=== PATIENT | male | born 1955 | race Caucasian/White ===

== ENCOUNTER 2020-05-25 10:03 | Outpatient (REF) | payer MEDICARE, SELFPAY ==
--- NOTE | 2020-05-25 10:10 | XR_ITS ---
EXAMINATION: XR HIP, RIGHT CLINICAL INFORMATION: Right hip pain COMPARISON: Previous x-ray October 2017 TECHNIQUE: Two views of the right hip and one view of the pelvis. FINDINGS: There is a severe arthritis of the right hip joint with joint space narrowing and osteophyte formation. No fracture or dislocation is seen. There is mild arthritis at the left hip joint. Bones of the pelvis are unremarkable. There are bilateral pelvic calcifications that are stable and probably represent calcified phleboliths. Soft tissues are otherwise unremarkable. There are degenerative changes of the visualized lower lumbar spine. XR/XR hip RT w PEL1V IMPRESSION: Severe right hip arthritis.
== END 2020-05-25 10:04 | disposition home or self-care (01) ==
LOC: HO.HOSX 10:03
PROVIDERS: Visit Provider Orthopaedic Surgery
DX: M16.11 Unilateral primary osteoarthritis, right hip (principal)
CPT/HCPCS: 73502; 99202

== ENCOUNTER 2020-06-06 08:23 | Outpatient (REF) | payer MEDICARE, SELFPAY ==
[2020-06-06 09:43] LABS: MANUAL DIFF FLAG NO
[2020-06-06 09:55] LABS: Basophils Percent Auto 0.7 % (0-2); Eosinophils Absolute Auto 0.2 X10*3/uL (0.0-0.4); Eosinophils Percent Auto 3.9 % (0-4); Imm Gran Abs Auto 0.01 X10*3/uL (0.00-0.03); Imm Gran Pct Auto 0.2 % (0.0-0.4); Lymphocytes Absolute Auto 1.5 X10*3/uL (1.2-4.9); Lymphocytes Percent Auto 34.1 % (20-40); Mean Corpuscular HGB Conc 32.4 g/dl (31.0-36.0); Mean Corpuscular Hemoglobin 30.4 pg (27.0-33.0); Mean Corpuscular Volume 93.7 fL (80-98); Mean Platelet Volume 9.6 fL (9.4-12.4); Monocytes Absolute Auto 0.3 X10*3/uL (0.1-1.2); Monocytes Percent Auto 6.1 % (2-11); Neutrophils Absolute Auto 2.4 X10*3/uL (2.0-8.3); Platelet Count 285 X10*3/uL (160-400); Red Blood Count 3.95 X10*6/uL (4.60-5.80); Red Cell Distribution Width 12.8 % (11.0-16.0); White Blood Count 4.4 X10*3/uL (4.8-10.8)
[2020-06-06 10:21] LABS: Alanine Aminotransferase 12 U/L (0-40); Albumin Level 4.3 g/dL (3.5-5.0); Alkaline Phosphatase 38 U/L (39-117); Anion Gap 13 (12-20); Aspartate Amino Transferase 13 U/L (5-37); Bilirubin Total 0.5 mg/dL (0.0-1.0); Blood Urea Nitrogen 20 mg/dL (9-16); Calcium 9.1 mg/dL (8.4-10.2); Carbon Dioxide 28 mmol/L (22-29); Chloride 104 mmol/L (96-108); Cholesterol 191 mg/dL; Estimated Glomerular Filt Rate > 60; Glucose Fasting 95 mg/dL (60-99); HDL Cholesterol 43 mg/dL; LDL Cholesterol Calculated 113 mg/dl; Potassium 4.5 mmol/l (3.3-5.1); Sodium 140 mmol/L (135-145); Total Protein 6.9 g/dL (6.5-8.0); Triglycerides 179 mg/dL
== END 2020-06-06 08:24 | disposition home or self-care (01) ==
LOC: HO.LAB 08:23
PROVIDERS: PCP Physician Assistant; Visit Provider Physician Assistant
DX: E78.00 Pure hypercholesterolemia, unspecified (principal); N40.0 Benign prostatic hyperplasia without lower urinary tract symptoms; I10 Essential (primary) hypertension
CPT/HCPCS: 36415; 80053; 80061; 84443; 85025

== ENCOUNTER → 2020-06-21 11:11 | Outpatient (BNVA) | payer MEDICARE, SELFPAY | PROVIDERS: PCP Physician Assistant; Visit Provider Orthopaedic Surgery | DX: Z76.89 Persons encountering health services in other specified circumstances (principal) ==

== ENCOUNTER → 2020-07-13 13:24 | Outpatient (BNVA) | payer MEDICARE, SELFPAY | PROVIDERS: PCP Physician Assistant; Visit Provider Physician Assistant | DX: M16.11 Unilateral primary osteoarthritis, right hip (principal) | CPT/HCPCS: 99212 ==

== ENCOUNTER 2020-08-01 07:54 | Inpatient (IN) | payer MEDICARE, SELFPAY ==
[2020-06-06 11:36] VITALS: BMI 30.8
--- NOTE | 2020-07-13 10:43 | HO.ANESPROP2 ---
HPI - Anesthesia Eval Consult details Narrative: 65yo M for R FELY PCP Cleared Rescheduled d/t covid [facility] Past Medical History Medical History History of anxiety History of cataract History of depression HLD (hyperlipidemia) HTN (hypertension) Family History Family History Father Renal cancer Mother Alzheimers disease Family history of problems with anesthesia: No Surgical History Surgical History History of cataract surgery History of colonoscopy History of Problems with Anesthesia: No (Never rec'd GA) Social History Social History (Updated 07/13/20 @ 13:38 by LIZZ Gusman) Alcohol intake: never Smoking Status: Former smoker Second Hand Smoke Exposure: No Current occupational status: employed 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 No CP/SOB at rest. Meds Allergies Allergy/AdvReac Type Severity Reaction Status Date / Time No Known Allergies Allergy Verified 07/13/20 13:32 Home Medications Medication Instructions Recorded Confirmed Type multivitamin 1 tab PO DAILY 07/13/20 07/13/20 History Exam Exam Date and Time: July 13, 2020 1043 Height,Weight and Vital Signs: Height 5 ft 9 in Weight 94.801 kg Pertinent Lab Results Pertinent Lab Results: Laboratory Tests 07/13/20 07/13/20 13:13 13:13 WBC 4.8 Hgb 12.4 L Hct 36.9 L Plt Count 300 Sodium 137 Potassium 4.5 Chloride 102 Carbon Dioxide 24 BUN 34 H D Creatinine 0.89 Laboratory Tests 07/13/20 13:13 Blood Type AB Positive Antibody Screen NEGATIVE Narrative Narrative: EKG 07/13/20 Normal sinus rhythm Nonspecific T wave abnormality Abnormal ECG When compared with ECG of 20-JUN-2009 07:43, No significant change was found Airway Mallampati Class: I TM Dist: >3cm Neck ROM: Full Loose/Missing/Broken Teeth: Yes (Molars pulled, ?1xcrown in molar) Heart: RRR Lungs: CTAB Assessment and Plan Assessment Anesthesia Assessment: Anesthesia Plan Discussed and PAT Visit
[2020-07-13 12:05] VITALS: BP 122/68; PULSE 78; RESP 20; O2SAT 95
[2020-07-13 12:06] VITALS: BMI 29.5
--- NOTE | 2020-07-13 12:57 | ECG_ITS ---
Test Reason : ANESTH HIP SURGERY Blood Pressure : / mmHG Vent. Rate : 066 BPM Atrial Rate : 066 BPM P-R Int : 166 ms QRS Dur : 074 ms QT Int : 386 ms P-R-T Axes : 030 -05 057 degrees QTc Int : 404 ms Normal sinus rhythm Nonspecific T wave abnormality Abnormal ECG When compared with ECG of 20-JUN-2009 07:43, No significant change was found Referred By: Candace Yu Electronically Signed By:VALENTIN CARVAJAL MD
[2020-07-13 13:50] LABS: MANUAL DIFF FLAG NO
[2020-07-13 13:58] LABS: Basophils Percent Auto 0.4 % (0-2); Eosinophils Absolute Auto 0.2 X10*3/uL (0.0-0.4); Eosinophils Percent Auto 4.3 % (0-4); Hematocrit 36.9 % (42-52); Hemoglobin 12.4 g/dl (14.0-18.0); Imm Gran Abs Auto 0.01 X10*3/uL (0.00-0.03); Imm Gran Pct Auto 0.2 % (0.0-0.4); Lymphocytes Absolute Auto 1.7 X10*3/uL (1.2-4.9); Lymphocytes Percent Auto 34.4 % (20-40); Mean Corpuscular HGB Conc 33.6 g/dl (31.0-36.0); Mean Corpuscular Hemoglobin 30.5 pg (27.0-33.0); Mean Corpuscular Volume 90.7 fL (80-98); Mean Platelet Volume 9.5 fL (9.4-12.4); Monocytes Absolute Auto 0.3 X10*3/uL (0.1-1.2); Monocytes Percent Auto 6.2 % (2-11); Neutrophils Absolute Auto 2.6 X10*3/uL (2.0-8.3); Neutrophils Percent Auto 54.5 % (45-73); Platelet Count 300 X10*3/uL (160-400); Red Blood Count 4.07 X10*6/uL (4.60-5.80); Red Cell Distribution Width 13.1 % (11.0-16.0); White Blood Count 4.8 X10*3/uL (4.8-10.8)
[2020-07-13 14:18] LABS: Estimated Average Glucose 105 mg/dL; Hemoglobin A1c % 5.3 %
[2020-07-13 14:44] LABS: Alanine Aminotransferase 12 U/L (0-40); Albumin Level 4.7 g/dL (3.5-5.0); Alkaline Phosphatase 42 U/L (39-117); Anion Gap 16 (12-20); Aspartate Amino Transferase 15 U/L (5-37); Bilirubin Total 0.5 mg/dL (0.0-1.0); Blood Urea Nitrogen 34 mg/dL (9-16); Calcium 9.5 mg/dL (8.4-10.2); Carbon Dioxide 24 mmol/L (22-29); Chloride 102 mmol/L (96-108); Cholesterol 210 mg/dL; Creatinine Clr Calc Pharmacy 92.1; Estimated Glomerular Filt Rate > 60; Glucose Fasting 96 mg/dL (60-99); HDL Cholesterol 49 mg/dL; LDL Cholesterol Calculated 135 mg/dl; Potassium 4.5 mmol/l (3.3-5.1); Sodium 137 mmol/L (135-145); Total Protein 7.3 g/dL (6.5-8.0); Triglycerides 132 mg/dL
[2020-07-13 14:52] LABS: TSH reflex Free T4 1.69 mIU/mL (0.32-4.0)
[2020-07-13 14:59] LABS: Microalbumin Urine < 5.0 mg/L
[2020-07-13 16:07] LABS: MRSA Nasal PCR NEGATIVE (Negative); SA Nasal PCR NEGATIVE (Negative)
--- NOTE | 2020-07-29 09:03 | P.CONAN_ITS ---
Documented by User: Marycarmen Jasonney 07/29/20 09:09 HPI - Anesthesia Eval Consult details Narrative: 65yo M for R FELY PCP Cleared Rescheduled d/t covid policy [facility] Past Medical History Medical History History of anxiety History of cataract History of depression HLD (hyperlipidemia) HTN (hypertension) Family History Family History Father Renal cancer Mother Alzheimers disease Surgical History Surgical History History of cataract surgery History of colonoscopy Social History Social History Are you a primary healthcare insurance sales agent to a significant other at home: No Do you presently have visiting nurse or other home services: No Alcohol intake: never Smoking Status: Former smoker Smoking Quit Date: 16 yrs ago Second Hand Smoke Exposure: No Use of substances other than those prescribed or required for medical reasons: No Have you been hit, kicked, punched, or otherwise hurt by someone within the past year? 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4 L Hct 36.9 L MCV 90.7 MCH 30.5 MCHC 33.6 RDW 13.1 Plt Count 300 MPV 9.5 Immature Gran % (Auto) 0.2 Neut % (Auto) 54.5 Lymph % (Auto) 34.4 Traverse % (Auto) 6.2 Eos % (Auto) 4.3 H Baso % (Auto) 0.4 Lymph # (Auto) 1.7 Traverse # (Auto) 0.3 Eos # (Auto) 0.2 Baso # (Auto) 0.0 Abs Immat Gran (auto) 0.01 Absolute Neuts (auto) 2.6 Absolute Nucleated RBC 0.000 Nucleated RBC % (auto) 0.0 Sodium Potassium Chloride Carbon Dioxide Anion Gap BUN Creatinine Estim Creat Clear Calc Estimated GFR Fasting Glucose Estimat Average Glucose Hemoglobin A1c % Calcium Total Bilirubin AST ALT Alkaline Phosphatase Total Protein Albumin Triglycerides Cholesterol LDL Cholesterol, Calc HDL Cholesterol TSH Urine Creatinine Urine Microalbumin Microalb/Creat Ratio Nasal Screen MRSA (PCR) NEGATIVE Nasal S. aureus Screen NEGATIVE Nasal MRSA/S.aureus Interp SEE NOTE Blood Type AB Positive Antibody Screen NEGATIVE 07/13/20 07/13/20 07/13/20 13:13 13:13 13:13 WBC RBC Hgb Hct MCV MCH MCHC RDW Plt Count MPV Immature Gran % (Auto) Neut % (Auto) Lymph % (Auto) Traverse % (Auto) Eos % (Auto) Baso % (Auto) Lymph # (Auto) Traverse # (Auto) Eos # (Auto) Baso # (Auto) Abs Immat Gran (auto) Absolute Neuts (auto) Absolute Nucleated RBC Nucleated RBC % (auto) Sodium 137 Potassium 4.5 Chloride 102 Carbon Dioxide 24 Anion Gap 16 BUN 34 H D Creatinine 0.89 Estim Creat Clear Calc 92.1 Estimated GFR > 60 Fasting Glucose 96 Estimat Average Glucose 105 Hemoglobin A1c % 5.3 Calcium 9.5 Total Bilirubin 0.5 AST 15 ALT 12 Alkaline Phosphatase 42 Total Protein 7.3 Albumin 4.7 Triglycerides 132 Cholesterol 210 LDL Cholesterol, Calc 135 HDL Cholesterol 49 TSH 1.69 Urine Creatinine 76.50 Urine Microalbumin < 5.0 Microalb/Creat Ratio TNP Nasal Screen MRSA (PCR) Nasal S. aureus Screen Nasal MRSA/S.aureus Interp Blood Type Antibody Screen Narrative Narrative: EKG 07/13/20 Normal sinus rhythm Nonspecific T wave abnormality Abnormal ECG When compared with ECG of 20-JUN-2009 07:43, No significant change was found Airway Mallampati Class: I TM Dist: >3cm Neck ROM: Full Loose/Missing/Broken Teeth: Yes (Molars pulled, ?1xcrown in molar) Heart: RRR Lungs: CTAB Assessment and Plan Assessment Anesthesia Assessment: Anesthesia Plan Discussed and PAT Visit (PAT visit 07/13/20, rescheduled d/t covid policy) Documented by User: Jordy Johnson MD 08/01/20 09:43 [facility] Past Medical History Medical History History of anxiety History of cataract History of depression HLD (hyperlipidemia) HTN (hypertension) Family History Family History Father Renal cancer Mother Alzheimers disease Surgical History Surgical History History of cataract surgery History of colonoscopy Social History Social History Are you a primary healthcare insurance sales agent to a significant other at home: No Do you presently have visiting nurse or other home services: No Alcohol intake: never Smoking Status: Former smoker Smoking Quit Date: 16 yrs ago Second Hand Smoke Exposure: No Use of substances other than those prescribed or required for medical reasons: No Have you been hit, kicked, punched, or otherwise hurt by someone within the past year? 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 Meds Allergies Allergy/AdvReac Type Severity Reaction Status Date / Time No Known Allergies Allergy Verified 07/13/20 13:32 Home Medications Medication Instructions Recorded Confirmed Type multivitamin 1 tab PO DAILY 07/13/20 07/13/20 History Assessment and Plan Assessment Anesthesia Assessment: Anesthesia Plan Discussed and Chart Reviewed Final Anesthetic Review NPO: Yes ASA Class: II Final Preanesthetic Review: No Changes in Pt Med Stat, Meds/Allgs Chart Reviewed, Consent Obtained/Reviewed and Anes Risks/Benef Reviewed Patient Risk: Intermediate Procedure Risk: Intermediate Anesthetic Plan Anesthetic Plan: GA and Regional Block Disposition: Standard PACU
[2020-08-01] VITALS (10 sets, daily range): BP systolic 104–131; BP diastolic 55–82; PULSE 77–106; RESP 16–20; TEMP 36.1–36.9; O2SAT 92–96
--- NOTE | 2020-08-01 07:03 | MHC.SHP ---
Pre-Procedural Eval Section A The patient is an INPATIENT: No Changes since office visit: No Cold of Flu in the past 2 weeks, No New Medical Problems, No Changes in Medication and No Patient answered all questions The History & Physical has been completed within 30 days and I have reviewed it.: Yes Section B Chief Complaint: right hip osteoarthritis Allergies: Allergies Allergy/AdvReac Type Severity Reaction Status Date / Time No Known Allergies Allergy Verified 07/13/20 13:32 Plan I have reviewed the history and physical and performed a pertinent physical examination on my patient. No changes have occurred unless specified.
[2020-08-01 08:21] LABS: COVID-19 Test Negative (Negative); IDNOW Serial# 9DD0AD1C
[2020-08-01] MEDS: oxyCODONE HCl ER 10 MG TAB.ER.12H PO (08:58)
[2020-08-01] MEDS: Gabapentin 600 MG TABLET PO (08:58)
[2020-08-01] MEDS: Lactated Ringers 1,000 ML 100 ML IVCONT ×2 (09:11→16:57)
--- NOTE | 2020-08-01 11:52 | P.PCNOP_ITS ---
Brief Operative Note Date of procedure: 08/01/20 Pre-op diagnosis: OA RIGHT HIP Post-op diagnosis: same Procedure: RIGHT FELY Anesthesia: spinal Surgeon: Candace Yu Sales And Business Development Manager: Ruma Walls Estimated blood loss (mL): 100 Pathology: none sent Condition: stable Disposition: PACU
--- NOTE | 2020-08-01 12:58 | OP_ITS ---
SURGEON: Candace Yu MD PREOPERATIVE DIAGNOSIS: Osteoarthritis, right hip. POSTOPERATIVE DIAGNOSIS: Osteoarthritis, right hip. PROCEDURE PERFORMED: Right total hip arthroplasty - Accolade II right size 5 x 127 femur, 36 mm standard BIOLOX head, 54 mm Tritanium acetabulum, 36 x 0 degree acetabular liner. ESTIMATED BLOOD LOSS: COMPLICATIONS: ANESTHESIA: ASSISTANTS: TAMEKA Driscoll. SPECIMENS: CLINICAL NOTE: This gentleman has had ongoing problem with osteoarthritis involving his right hip. He had failed nonoperative management, therefore after explaining the risks, benefits, and alternatives, and answering all his questions, it was mutually agreed upon to carry out the following procedure. DESCRIPTION OF PROCEDURE: Under a spinal anesthetic, the patient was placed in the left lateral decubitus position with the right hip up. The right hip was prepped and draped in standard fashion with the right leg free. Surgical time-out was then performed. The patient was identified, procedure confirmed, site confirmed. Medical analogy and history reviewed. Preoperative antibiotics were given. Standard DVT prophylaxis was in place. All other items were discussed and agreed upon. Tranexamic acid was given as well. Standard anterolateral approach to the hip was carried out, taken down through subcutaneous tissues. Hemostasis was achieved along the way using electrocautery, brought us down to the level of the fascia castillo, which was divided along the length of the incision. The abductor musculature was then identified, the anterior two-thirds were elevated through tendon off the trochanter along the capsule down to the level of the acetabulum. Capsulectomy was then performed. The hip was not easily dislocated, therefore, it was resected in situ according to preoperative templating. The head was then removed, and we turned our attention to the acetabulum. There were osteophytes that were present and these were removed off the superior aspect. The remainder of the labrum and soft tissues were removed. The acetabular fossa was identified. The hip was then sequentially reamed from 52 to 54 mm. At that point, trial acetabulum was put into place that showed the alignment and fit. Therefore the 54 mm Tritanium acetabulum was selected and brought up the table. The wound was thoroughly irrigated. The acetabulum was inserted until it was aligned and with excellent purchase in the appropriate position. Following this, the trial 0 degree liner for 36 mm head was placed and we turned our attention to the femur. Box osteotome was used to lateralize the canal. T-reamer was used to sound the canal. The canal was subsequently broached from 0-5. At 5, there was good fit and fill and rotational control. A trial reduction was performed with the 36 mm standard head and a 127 degree collar. This demonstrated excellent alignment, full range of motion, stability, and therefore the Accolade II 5 x 127 femur with 36 standard BIOLOX head and the 36 x 0 degree acetabular liner were selected and brought up the table. All the trial components were removed after the hip was dislocated. The acetabulum was thoroughly irrigated. Permanent liner put into place. The femur was irrigated. The permanent component was tapped into place. The Perales taper was cleaned and dried. The head placed. The hip was relocated for final time, it again demonstrated excellent alignment, full range of motion, leg lengths, and stability, and therefore, proceeded to closure. Wound was thoroughly irrigated. Abductor musculature closed with #2 Dexon. Fascia castillo closed with #2 Quill suture. The skin was approximated using interrupted 2-0 Dexon. Skin was closed with jomar. Sterile dressing was then applied. The patient was then transferred supine to the room bed, then taken to recovery room in good condition. Intraoperatively, there was approximately 100 mL blood loss. No transfusions. Second unit of tranexamic acid was given at the time of closure. There were no complications. MD SYD Avila/MAURICE / [id number]
--- NOTE | 2020-08-01 15:23 | PM.IMCN ---
History of Present Illness Data of Consult Service Date: 08/01/20 Requesting physician: Candace Yu Primary Care Provider: Unknown Physician HPI Reason for consult: medical management 65-year-old man admitted by Orthopedic surgery, status post right total hip arthroplasty. Surgery was unremarkable. Patient has a minimal amount of pain at this time. He has been able to eat and drink without any nausea or vomiting. Stable vital signs. Review of Systems Review of Systems: Denies any recent fever chills or decrease in appetite respiratory denies any shortness of breath coverage production cardiovascular is adjustment of any PND or edema gastrointestinal denies any dysphagia abdominal pain nausea vomiting or diarrhea genitourinary denies any dysuria frequency or hematuria musculoskeletal See HPI neuropsych denies any weakness or seizures all other systems reviewed are negative [facility] Medical History History of anxiety History of cataract History of depression HLD (hyperlipidemia) HTN (hypertension) Family History Father Renal cancer Mother Alzheimers disease Surgical History History of cataract surgery History of colonoscopy Social History Are you a primary career representative to a significant other at home: No Do you presently have visiting nurse or other home services: No Alcohol intake: never Smoking Status: Former smoker Smoking Quit Date: 16 yrs ago Second Hand Smoke Exposure: No Use of substances other than those prescribed or required for medical reasons: No Have you been hit, kicked, punched, or otherwise hurt by someone within the past year? 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 Meds Allergies Allergy/AdvReac Type Severity Reaction Status Date / Time No Known Allergies Allergy Verified 07/13/20 13:32 Home Medications Medication Instructions Recorded Confirmed Type multivitamin 1 tab PO DAILY 07/13/20 07/13/20 History Physical Exam Vital Signs and Narrative: Vital Signs: Last Vital Signs Temp 97 F 08/01/20 15:11 Pulse 91 08/01/20 15:11 Resp 20 08/01/20 15:11 BP 125/63 08/01/20 15:11 Pulse Ox 94 08/01/20 15:11 Body Mass Index 29.5 Appearing in no acute distress head is normocephalic atraumatic eyes pupils are PERRLA sclera is anicteric mouth throat mucous membranes are intact and moist neck is supple no lymphadenopathy, no JVD noted lung sounds are clear to auscultation heart regular rate rhythm, clear S1, S2 positive bowel sounds, abdomen is soft, nontender neuro patient is alert x3, no focal deficits MSK Righ hip dressing dry and intact Results Labs CBC and Chem 7: 07/13/20 13:13 07/13/20 13:13 Labs: Laboratory Results - last 24 hr 08/01/20 08/01/20 08:00 08:23 COVID-19 ([place]) Negative COVID-19 Clin Com See Note Blood Type AB Positive Antibody Screen NEGATIVE Assessment and Plan (1) Primary localized osteoarthritis of right hip: Status: Acute 65 year old man admitted by Orthopedic surgery and is status post right total hip arthroplasty. Right total hip arthroplasty. Management as per surgical team. Pain management. Hypertension. Stable blood pressure. Continue lisinopril. Depression. Continue paroxetine. Hyperlipidemia. Continue statin. DVT prophylaxis with full-dose aspirin. Case discussed with Dr. Fito Cancino code
[2020-08-01] MEDS: ceFAZolin Sodium/Dextrose,Iso 2 GM/50 ML PIGGYBACK IV (16:58)
[2020-08-01] MEDS: 0.9 % Sodium Chloride Flush 3 ML SYRINGE IVFLUSH (16:59)
--- NOTE | 2020-08-01 17:23 | PM.EVENT ---
Event Note Date of Service: 08/02/20 Event Note: addendum to consultation by FLASH WELDING MACHINE OPERATOR Ilsa Doyle I interviewed and examined the patient. I discussed their presentation and management with the mid-level provider. I reviewed the consultation and agree with the documentation, with the following additions and corrections: 65yo M POD #0 R FELY for OA, medical consultation requested for mgmt of comorbid conditions which are HTN, depression, and HLD Pt with appropriate postop pain; no cardiac or pulmonary complaints. In no acute distress with clear lungs and regular rate and rhythm. Plan: VTE ppx as per Ortho team, continue lisinopril for HTN, paroxetine for depression, and statin for dyslipidemia
[2020-08-01] MEDS: Acetaminophen 325 MG TABLET 650 MG PO (18:36)
[2020-08-01] MEDS: Ketorolac Tromethamine 15 MG/ML VIAL IVPUSH (20:23)
[2020-08-02] VITALS (8 sets, daily range): BP systolic 93–122; BP diastolic 44–77; PULSE 73–99; RESP 18–20; TEMP 36.7–37.3; O2SAT 93–96
[2020-08-02] MEDS: Ketorolac Tromethamine 15 MG/ML VIAL IVPUSH ×4 (01:57→21:12)
[2020-08-02] MEDS: Acetaminophen 325 MG TABLET 650 MG PO ×4 (01:58→19:06)
[2020-08-02] MEDS: Lactated Ringers 1,000 ML 100 ML IVCONT (02:02)
[2020-08-02 06:28] LABS: Hematocrit 27.7 % (42-52); Hemoglobin 9.4 g/dl (14.0-18.0)
--- NOTE | 2020-08-02 07:00 | XR_ITS ---
EXAMINATION: XR HIP, RIGHT CLINICAL INFORMATION: Postop COMPARISON: Right hip x-rays 05/25/2020 TECHNIQUE: Two views of the right hip. FINDINGS: Patient is status post right total hip arthroplasty. Components are in expected orientation. There is no periprosthetic fracture. Expected subcutaneous emphysema. Skin jomar. Mild degenerative changes of the left hip. Vascular calcifications of the pelvis. XR/XR hip RT w PEL1V IMPRESSION: Expected post operative appearance of the right hip.
--- NOTE | 2020-08-02 07:56 | PM.PNORT ---
Subjective Subjective Date of Service: 08/02/20 Principal diagnosis: RT FELY Interval history: POD 1 s/p RT FELY No overnight events, has not been out of bed, has some pain in the thigh. Tolerating pain well. Denies concerns. Physical Exam Vital Signs: Vital Signs: Last Vital Signs Temp 98.0 F 08/02/20 03:00 Pulse 87 08/02/20 03:00 Resp 20 08/02/20 03:00 BP 122/71 08/02/20 03:00 Pulse Ox 96 08/02/20 03:00 Body Mass Index 29.5 Const: General: cooperative, healthy appearing and no acute distress Resp: Effort & Inspection: normal respiratory effort and able to speak in complete sentences Cardio: Rate: regular rate Peripheral pulses: Peripheral pulses 2+ throughout GI: Palpation (GI): Soft to palpation Skin: General skin exam: no rashes or lesions noted Extrem: Other: Right hip incision clean, dry and intact. no erythema, mild edema, sensation intact Progress Note: A&P Assessment and plan (1) History of total right hip replacement: Status: Acute Assessment and Plan: Continue pain mgmnt Begin asa for dvt ppx begin PT for RT FELY Dispo planning-Pending PT eval, pain mgmnt Fall Risk Details Current Medications: Current Medications Generic Name Dose Route Start Last Admin Trade Name Freq PRN Reason Stop Dose Admin Acetaminophen 650 mg 08/01/20 13:17 08/02/20 07:40 Acetaminophen 325 Mg Tablet PO 650 mg Q6H MARK Administration Aspirin 325 mg 08/02/20 22:00 Aspirin 325 Mg Tablet PO BID [facility] Fluoxetine HCl 40 mg 08/02/20 09:00 Fluoxetine Hcl 20 Mg Capsule PO DAILY [facility] Fluticasone Propionate 1 spray 08/02/20 09:00 Fluticasone Propionate Nasal 16 Gm [place]ell NOSTRIL-B DAILY MARK Lactated Ringer's 1,000 mls @ 100 mls/hr 08/01/20 08:00 08/02/20 02:02 Lr IVCONT 100 mls/hr .Q10H MARK Administration Ketorolac Tromethamine 15 mg 08/01/20 14:00 08/02/20 07:41 Ketorolac Tromethamine 15 Mg/Ml Vial IVPUSH 15 mg Q6H MARK Administration Lisinopril 20 mg 08/02/20 09:00 Lisinopril 20 Mg Tablet PO DAILY [facility] Protocol Morphine Sulfate 2 mg 08/01/20 13:17 Morphine Sulfate 2 Mg/Ml Cartridge IVPUSH Q2H PRN Pain, Severe (Pain Scale 7-10) Multivitamins/Vitamin C 1 tab 08/02/20 09:00 Multivitamin Tablet PO DAILY [facility] Naloxone HCl 0.2 mg 08/01/20 13:17 Naloxone Hcl 0.4 Mg/Ml Vial IVPUSH Q2M PRN Excessive sedation or RR < 8 Ondansetron HCl 4 mg 08/01/20 13:17 Ondansetron Hcl 4 Mg/2 Ml Vial IVPUSH Q8H PRN Nausea and Vomiting Oxycodone HCl 10 mg 08/01/20 13:17 08/02/20 07:45 Oxycodone Hcl Immed Release 5 Mg Tablet PO Not Given Q6H [facility] Pravastatin Sodium 40 mg 08/02/20 09:00 Pravastatin Sodium 40 Mg Tablet PO DAILY [facility] Sodium Chloride 3 ml 08/01/20 16:00 08/02/20 07:45 0.9 % Sodium Chloride Flush 3 Ml Syringe IVFLUSH Not Given QSHIFT [facility] Time Spent With Patient Time: Total time spent is greater than 50% in coordination of care (as documented) at patient's floor/unit and/or counseling patient: Time with patient: less than 15 minutes
[2020-08-02] MEDS: Pravastatin Sodium 40 MG TABLET PO (08:51)
[2020-08-02] MEDS: Multivitamin TABLET 1 TAB PO (08:51)
[2020-08-02] MEDS: FLUoxetine HCl 20 MG CAPSULE 40 MG PO (08:52)
--- NOTE | 2020-08-02 10:19 | MHC.CM.PN ---
pt lives alone in home, he has moved to the first floor of the house. pt at baseline is independent. he has a walker , cane at home already. he will have a family member or friend provide transport. pt requested [facility] to provide nsg and home PT , this ref. has been made. dc plan is home c [facility] for nsg and home PT . cm to cont. to follow.
--- NOTE | 2020-08-02 10:29 | HO.POSTANES ---
Post Anesthesia Evaluation Post Anesthesia Evaluation Vital Signs: Vital Signs Temp Pulse Resp BP Pulse Ox 08/02/20 08:08 87 122/71 96 08/02/20 07:00 98.4 F 93 18 100/53 L 93 08/02/20 03:00 98.0 F 87 20 122/71 96 08/01/20 23:00 97.7 F 78 20 125/70 95 Anesthesia: General Mental Status: Awake Pain Control: Satisfactory Nausea/Vomiting: None Hydration: Adequate Anesthesia-Related Issues: No Anes. Related Issues
--- NOTE | 2020-08-02 10:34 | P.PNIM_ITS ---
Subjective Subjective Date of Service: 08/02/20 Interval History: R hip pain no chest pain no dyspnea no fever Physical Exam Vital Signs: Vital Signs: Last Vital Signs Temp 98.4 F 08/02/20 07:00 Pulse 87 08/02/20 08:08 Resp 18 08/02/20 07:00 BP 122/71 08/02/20 08:08 Pulse Ox 96 08/02/20 08:08 Body Mass Index 29.5 Gen: in no acute distress Lungs: clear to auscultation bilaterally Heart: regular rate and rhythm, no murmurs Abd: soft, non-tender, non-distended Ext: no edema, R hip incision C/D/I Skin: warm/well-perfused Neuro: alert and oriented x3, no focal findings Psych: appropriate affect Objective Data Current Medications Generic Name Dose Route Start Last Admin Trade Name Freq PRN Reason Stop Dose Admin Acetaminophen 650 mg 08/01/20 13:17 08/02/20 07:40 Acetaminophen 325 Mg Tablet PO 650 mg Q6H MARK Administration Aspirin 325 mg 08/02/20 22:00 Aspirin 325 Mg Tablet PO BID MARK Fluoxetine HCl 40 mg 08/02/20 09:00 08/02/20 08:52 Fluoxetine Hcl 20 Mg Capsule PO 40 mg DAILY MARK Administration Fluticasone Propionate 1 spray 08/02/20 09:00 08/02/20 08:53 Fluticasone Propionate Nasal 16 Gm [place] NOSTRIL-B Not Given DAILY MARK Lactated Ringer's 1,000 mls @ 100 mls/hr 08/01/20 08:00 08/02/20 02:02 Lr IVCONT 100 mls/hr .Q10H MARK Administration Ketorolac Tromethamine 15 mg 08/01/20 14:00 08/02/20 07:41 Ketorolac Tromethamine 15 Mg/Ml Vial IVPUSH 15 mg Q6H MARK Administration Lisinopril 20 mg 08/02/20 09:00 08/02/20 08:51 Lisinopril 20 Mg Tablet PO 20 mg DAILY MARK Administration Protocol Morphine Sulfate 2 mg 08/01/20 13:17 Morphine Sulfate 2 Mg/Ml Cartridge IVPUSH Q2H PRN Pain, Severe (Pain Scale 7-10) Multivitamins/Vitamin C 1 tab 08/02/20 09:00 08/02/20 08:51 Multivitamin Tablet PO 1 tab DAILY MARK Administration Naloxone HCl 0.2 mg 08/01/20 13:17 Naloxone Hcl 0.4 Mg/Ml Vial IVPUSH Q2M PRN Excessive sedation or RR < 8 Ondansetron HCl 4 mg 08/01/20 13:17 Ondansetron Hcl 4 Mg/2 Ml Vial IVPUSH Q8H PRN Nausea and Vomiting Oxycodone HCl 10 mg 08/01/20 13:17 08/02/20 07:45 Oxycodone Hcl Immed Release 5 Mg Tablet PO Not Given Q6H [facility] Pravastatin Sodium 40 mg 08/02/20 09:00 08/02/20 08:51 Pravastatin Sodium 40 Mg Tablet PO 40 mg DAILY MARK Administration Sodium Chloride 3 ml 08/01/20 16:00 08/02/20 07:45 0.9 % Sodium Chloride Flush 3 Ml Syringe IVFLUSH Not Given QSHIFT [facility] Labs CBC & Chem 7: 08/02/20 05:53 07/13/20 13:13 Assessment and Plan (1) HTN (hypertension): Status: Acute (2) History of total right hip replacement: Status: Acute Assessment and Plan: 65yo M POD#1 R FELY for OA medicine consultation for mangement of comorbid conditions # HTN - continue lisionpril # dyslipdemia - continue statin # depression - continue paroxetine # postop FELY - analgesia, VTE ppx, and dispo planning per Ortho team # VTE ppx - ASA
[2020-08-02] MEDS: Sennosides 8.6 MG TABLET 17.2 MG PO (13:17)
[2020-08-02] MEDS: 0.9 % Sodium Chloride Flush 3 ML SYRINGE IVFLUSH ×2 (15:17→21:12)
[2020-08-02] MEDS: Aspirin 325 MG TABLET PO (21:11)
[2020-08-03] MEDS: Ketorolac Tromethamine 15 MG/ML VIAL IVPUSH ×2 (02:18→10:17)
[2020-08-03] MEDS: Acetaminophen 325 MG TABLET 650 MG PO ×2 (02:18→08:31)
[2020-08-03 03:27] VITALS: BP 134/60; PULSE 86; RESP 16; TEMP 36.7; O2SAT 95
[2020-08-03 07:54] VITALS: BP 112/61; PULSE 83; RESP 18; TEMP 36.9; O2SAT 95
--- NOTE | 2020-08-03 08:08 | P.DS_ITS ---
DS: Providers Provider Date of Service: 08/03/20 Date of admission: 08/01/20 07:54 Primary care physician: Unknown Physician Consults: 08/01/20 13:17 Consult to Hospitalist Routine Consulting Provider: Hospitalist DS: Diagnosis Discharge Diagnosis (1) History of total right hip replacement: Status: Acute Problem details: Mr. Muse presented to the office today right hip pain, he was found to have osteoarthritis of the right hip. He had failed all conservative measures and continued to have difficulty with daily activities; therefore he consented to move forward with RT FELY. DS: Medications Discharge Medications Home Medications: Home Medications Medication Instructions Recorded Confirmed multivitamin 1 tab PO DAILY 07/13/20 07/13/20 Previous Rx's Medication Instructions Recorded fluoxetine 40 mg capsule 40 mg PO QAM 90 Days #90 cap 06/21/20 lisinopril 20 mg tablet 20 mg PO DAILY 90 Days #90 tab 06/21/20 lovastatin 40 mg tablet 40 mg PO DAILY 90 Days #90 tab 06/21/20 fluticasone propionate 50 1 spray INTRANASAL DAILY #16 g 07/13/20 mcg/actuation nasal spray,suspension acetaminophen 650 mg PO Q6H 30 Days #240 tab 08/03/20 aspirin 325 mg PO BID 30 Days #60 tab 08/03/20 oxycodone 5 mg PO Q6H 7 Days #28 tab 08/03/20 sennosides [Senna Lax] 17.2 mg PO DAILY 30 Days #60 tab 08/03/20 DS: Summary Hospital Course Hospital Course: The patient underwent a successful RT FELY was transferred to PACU and then to the floor to recover. During their stay, their vitals were stable, afebrile at 98.5. Labs were unremarkable, H/H 9.7/29.9. POD 1 he was started on ASA for DVT ppx, they also received PT/OT services twice a day. Prior to discharge, their dressing was change, incision clean dry and intact, new Aquacel dressing applied and the plan was to be discharged home with VNA services,. Time Spent with Patient Time attestation: Total time spent providing and/or coordinating discharge services: Discharge coordination time: Greater than 30 minutes Physical Exam Vital Signs: Vital Signs: Last Vital Signs Temp 98.5 F 08/03/20 07:54 Pulse 83 08/03/20 07:54 Resp 18 08/03/20 07:54 BP 112/61 08/03/20 07:54 Pulse Ox 95 08/03/20 07:54 Body Mass Index 29.5 Const: General: cooperative, healthy appearing and no acute distress Resp: Effort & Inspection: normal respiratory effort and able to speak in complete sentences Cardio: Rate: regular rate Peripheral pulses: Peripheral pulses 2+ throughout GI: Palpation (GI): Soft to palpation Skin: General skin exam: no rashes or lesions noted Extrem: Other: Right hip incision clean dry and intact. No erythema, mild edema, senation intact DS: Data Data Completed and Pending Pending studies at discharge: Pending at discharge 08/01/20 11:33 Surgical [PTH] Routine Labs on day of discharge: Laboratory Tests 07/13/20 07/13/20 07/13/20 00:00 13:13 13:13 WBC 4.8 RBC 4.07 L Hgb 12.4 L Hct 36.9 L MCV 90.7 MCH 30.5 MCHC 33.6 RDW 13.1 Plt Count 300 MPV 9.5 Immature Gran % (Auto) 0.2 Neut % (Auto) 54.5 Lymph % (Auto) 34.4 [place] % (Auto) 6.2 Eos % (Auto) 4.3 H Baso % (Auto) 0.4 Lymph # (Auto) 1.7 [place] # (Auto) 0.3 Eos # (Auto) 0.2 Baso # (Auto) 0.0 Abs Immat Gran (auto) 0.01 Absolute Neuts (auto) 2.6 Absolute Nucleated RBC 0.000 Nucleated RBC % (auto) 0.0 Sodium Potassium Chloride Carbon Dioxide Anion Gap BUN Creatinine Estim Creat Clear Calc Estimated GFR Fasting Glucose Estimat Average Glucose Hemoglobin A1c % Calcium Total Bilirubin AST ALT Alkaline Phosphatase Total Protein Albumin Triglycerides Cholesterol LDL Cholesterol, Calc HDL Cholesterol TSH Urine Creatinine Urine Microalbumin Microalb/Creat Ratio Nasal Screen MRSA (PCR) NEGATIVE Nasal S. aureus Screen NEGATIVE Nasal MRSA/S.aureus Interp SEE NOTE COVID-19 ([facility]) COVID-19 Clin Com Blood Type AB Positive Antibody Screen NEGATIVE 07/13/20 07/13/20 07/13/20 13:13 13:13 13:13 WBC RBC Hgb Hct MCV MCH MCHC RDW Plt Count MPV Immature Gran % (Auto) Neut % (Auto) Lymph % (Auto) [place] % (Auto) Eos % (Auto) Baso % (Auto) Lymph # (Auto) [place] # (Auto) Eos # (Auto) Baso # (Auto) Abs Immat Gran (auto) Absolute Neuts (auto) Absolute Nucleated RBC Nucleated RBC % (auto) Sodium 137 Potassium 4.5 Chloride 102 Carbon Dioxide 24 Anion Gap 16 BUN 34 H D Creatinine 0.89 Estim Creat Clear Calc 92.1 Estimated GFR > 60 Fasting Glucose 96 Estimat Average Glucose 105 Hemoglobin A1c % 5.3 Calcium 9.5 Total Bilirubin 0.5 AST 15 ALT 12 Alkaline Phosphatase 42 Total Protein 7.3 Albumin 4.7 Triglycerides 132 Cholesterol 210 LDL Cholesterol, Calc 135 HDL Cholesterol 49 TSH 1.69 Urine Creatinine 76.50 Urine Microalbumin < 5.0 Microalb/Creat Ratio TNP Nasal Screen MRSA (PCR) Nasal S. aureus Screen Nasal MRSA/S.aureus Interp COVID-19 ([facility]) COVID-19 Clin Com Blood Type Antibody Screen 08/01/20 08/01/20 08/02/20 08:00 08:23 05:53 WBC RBC Hgb 9.4 L D Hct 27.7 L D MCV MCH MCHC RDW Plt Count MPV Immature Gran % (Auto) Neut % (Auto) Lymph % (Auto) [place] % (Auto) Eos % (Auto) Baso % (Auto) Lymph # (Auto) [place] # (Auto) Eos # (Auto) Baso # (Auto) Abs Immat Gran (auto) Absolute Neuts (auto) Absolute Nucleated RBC Nucleated RBC % (auto) Sodium Potassium Chloride Carbon Dioxide Anion Gap BUN Creatinine Estim Creat Clear Calc Estimated GFR Fasting Glucose Estimat Average Glucose Hemoglobin A1c % Calcium Total Bilirubin AST ALT Alkaline Phosphatase Total Protein Albumin Triglycerides Cholesterol LDL Cholesterol, Calc HDL Cholesterol TSH Urine Creatinine Urine Microalbumin Microalb/Creat Ratio Nasal Screen MRSA (PCR) Nasal S. aureus Screen Nasal MRSA/S.aureus Interp COVID-19 ([facility]) Negative COVID-19 Clin Com See Note Blood Type AB Positive Antibody Screen NEGATIVE Discharge Plan Discharge Patient Disposition: Home Health Service Referrals: Ruma Walls PA-C [Physician Eligibility Analyst] - (08/17/20 1:45) Discharge Medications: New acetaminophen 325 mg Tablet 650 mg PO Q6H 30 Days Qty: 240 RF: 0 aspirin 325 mg Tablet 325 mg PO BID 30 Days Qty: 60 RF: 0 oxycodone 5 mg Tablet 5 mg PO Q6H 7 Days Qty: 28 RF: 0 sennosides [Senna Lax] 8.6 mg Tablet 17.2 mg PO DAILY 30 Days Qty: 60 RF: 0 Continued fluticasone propionate 50 mcg/actuation spray,suspension 1 spray intranasal DAILY Qty: 16 RF: 4 multivitamin Tablet 1 tab PO DAILY RF: 0 lovastatin 40 mg tablet 40 mg PO DAILY 90 Days Qty: 90 RF: 1 fluoxetine 40 mg capsule 40 mg PO QAM 90 Days Qty: 90 RF: 1 lisinopril 20 mg tablet 20 mg PO DAILY 90 Days Qty: 90 RF: 1 Discharge Orders: Discharge Order (Routine); Ordered 08/03/20 Ordered By: Ruma Walls Diet: regular diet Activity on Discharge: Use cane or walker Stand Alone Forms: Patient Portal Discharge page Activity Restrictions/Additional Instructions: * Physical Therapy for Total hip arthroplasty: no precautions, gait training, ROM, strength * Limit stair climbing * No showering, no tub bath-keep dressing clean, dry and intact * No driving x6 weeks * Continue Aspirin 325mg tabs twice a day x 4 weeks * [place] [facility] [place] [facility] [place] Care Plan Goals: Restore function of right hip Health Concerns: none Plan of Treatment: Physical Therapy Pain management DVT prophylaxis
[2020-08-03 08:12] LABS: MANUAL DIFF FLAG NO
[2020-08-03] MEDS: FLUoxetine HCl 20 MG CAPSULE 40 MG PO (08:31)
[2020-08-03 08:32] LABS: Basophils Percent Auto 0.1 % (0-2); Eosinophils Absolute Auto 0.1 X10*3/uL (0.0-0.4); Eosinophils Percent Auto 0.7 % (0-4); Hematocrit 29.9 % (42-52); Hemoglobin 9.7 g/dl (14.0-18.0); Imm Gran Abs Auto 0.02 X10*3/uL (0.00-0.03); Imm Gran Pct Auto 0.2 % (0.0-0.4); Lymphocytes Absolute Auto 1.7 X10*3/uL (1.2-4.9); Lymphocytes Percent Auto 20.2 % (20-40); Mean Corpuscular HGB Conc 32.4 g/dl (31.0-36.0); Mean Corpuscular Hemoglobin 30.3 pg (27.0-33.0); Mean Corpuscular Volume 93.4 fL (80-98); Mean Platelet Volume 9.9 fL (9.4-12.4); Monocytes Absolute Auto 0.9 X10*3/uL (0.1-1.2); Monocytes Percent Auto 10.8 % (2-11); Neutrophils Absolute Auto 5.5 X10*3/uL (2.0-8.3); Platelet Count 202 X10*3/uL (160-400); Red Cell Distribution Width 13.2 % (11.0-16.0); White Blood Count 8.2 X10*3/uL (4.8-10.8)
[2020-08-03] MEDS: Pravastatin Sodium 40 MG TABLET PO (08:32)
[2020-08-03] MEDS: Aspirin 325 MG TABLET PO (08:32)
[2020-08-03] MEDS: Multivitamin TABLET 1 TAB PO (08:32)
[2020-08-03] MEDS: 0.9 % Sodium Chloride Flush 3 ML SYRINGE IVFLUSH (08:33)
[2020-08-03 09:25] VITALS: BP 112/61; PULSE 83; O2SAT 95
--- NOTE | 2020-08-03 10:42 | P.PNIM_ITS ---
Subjective Subjective Date of Service: 08/03/20 Interval History: R hip pain improved no other complaints Physical Exam Vital Signs: Vital Signs: Last Vital Signs Temp 98.5 F 08/03/20 07:54 Pulse 83 08/03/20 09:25 Resp 18 08/03/20 07:54 BP 112/61 08/03/20 09:25 Pulse Ox 95 08/03/20 09:25 Body Mass Index 29.5 Gen: in no acute distress Lungs: clear to auscultation bilaterally Heart: regular rate and rhythm, no murmurs Abd: soft, non-tender, non-distended Ext: no edema, R hip incision C/D/I Skin: warm/well-perfused Neuro: alert and oriented x3, no focal findings Psych: appropriate affect Objective Data Current Medications Generic Name Dose Route Start Last Admin Trade Name Freq PRN Reason Stop Dose Admin Acetaminophen 650 mg 08/01/20 13:17 08/03/20 08:31 Acetaminophen 325 Mg Tablet PO 650 mg Q6H MARK Administration Aspirin 325 mg 08/02/20 22:00 08/03/20 08:32 Aspirin 325 Mg Tablet PO 325 mg BID MARK Administration Fluoxetine HCl 40 mg 08/02/20 09:00 08/03/20 08:31 Fluoxetine Hcl 20 Mg Capsule PO 40 mg DAILY [facility] Administration Fluticasone Propionate 1 spray 08/02/20 09:00 08/03/20 08:37 Fluticasone Propionate Nasal 16 Gm [place] NOSTRIL-B Not Given DAILY [facility] Ketorolac Tromethamine 15 mg 08/01/20 14:00 08/03/20 10:17 Ketorolac Tromethamine 15 Mg/Ml Vial IVPUSH 15 mg Q6H MARK Administration Lisinopril 20 mg 08/02/20 09:00 08/03/20 08:32 Lisinopril 20 Mg Tablet PO 20 mg DAILY [facility] Administration Protocol Morphine Sulfate 2 mg 08/01/20 13:17 Morphine Sulfate 2 Mg/Ml Cartridge IVPUSH Q2H PRN Pain, Severe (Pain Scale 7-10) Multivitamins/Vitamin C 1 tab 08/02/20 09:00 08/03/20 08:32 Multivitamin Tablet PO 1 tab DAILY MARK Administration Naloxone HCl 0.2 mg 08/01/20 13:17 Naloxone Hcl 0.4 Mg/Ml Vial IVPUSH Q2M PRN Excessive sedation or RR < 8 Ondansetron HCl 4 mg 08/01/20 13:17 Ondansetron Hcl 4 Mg/2 Ml Vial IVPUSH Q8H PRN Nausea and Vomiting Oxycodone HCl 10 mg 08/01/20 13:17 08/03/20 08:22 Oxycodone Hcl Immed Release 5 Mg Tablet PO Not Given Q6H MARK Pravastatin Sodium 40 mg 08/02/20 09:00 08/03/20 08:32 Pravastatin Sodium 40 Mg Tablet PO 40 mg DAILY MARK Administration Senna 17.2 mg 08/02/20 13:00 08/03/20 08:38 Sennosides 8.6 Mg Tablet PO Not Given DAILY MARK Sodium Chloride 3 ml 08/01/20 16:00 08/03/20 08:33 0.9 % Sodium Chloride Flush 3 Ml Syringe IVFLUSH 3 ml QSHIFT MARK Administration Labs CBC & Chem 7: 08/03/20 07:53 07/13/20 13:13 Assessment and Plan (1) HTN (hypertension): Status: Acute (2) History of total right hip replacement: Problem details: Mr. Muse presented to the office today right hip pain, he was found to have osteoarthritis of the right hip. He had failed all conservative measures and continued to have difficulty with daily activities; therefore he consented to move forward with RT FELY. Status: Acute Assessment and Plan: 65yo M POD#2 R FELY for OA medicine consultation for mangement of comorbid conditions # HTN - continue lisionpril # dyslipdemia - continue statin # depression - continue paroxetine # postop FELY - analgesia, VTE ppx, and dispo planning per Ortho team # VTE ppx - ASA
== END 2020-08-03 11:37 | disposition home health service (06) | DRG 470 ==
LOC: HO.SSSA 08:16 → HO.S3 11:14 → HO.SSSA 11:15 → HO.S3 12:34
PROVIDERS: Physician Assistant; Admitting Provider Orthopaedic Surgery; PCP Physician Assistant; Visit Provider Orthopaedic Surgery
PROC: 0SR90JA Replacement of Right Hip Joint with Synthetic Substitute, Uncemented, Open Approach (ICD-10-PCS; CPT 27130; principal; 2020-08-01 10:00)
DX: M16.11 Unilateral primary osteoarthritis, right hip (principal); E78.5 Hyperlipidemia, unspecified; I10 Essential (primary) hypertension; F41.9 Anxiety disorder, unspecified; F32.9 Major depressive disorder, single episode, unspecified; Z20.822 Contact with and (suspected) exposure to COVID-19; Z79.51 Long term (current) use of inhaled steroids; Z79.899 Other long term (current) drug therapy
CPT/HCPCS: 36415; 73502; 80053; 80061; 82043; 83036; 84443; 85014; 85018; 85025; 86850; 86900; 86901; 87635; 87640; 87641; 88304; 88311; 93005; 97110; 97116; 97162; 97165; 97535; C1776; J0131; J0690; J1100; J1170; J1885; J2250; J2405; J3010

== ENCOUNTER → 2020-08-17 13:31 | Outpatient (BNVA) | payer MEDICARE, SELFPAY | PROVIDERS: PCP Physician Assistant; Visit Provider Physician Assistant | DX: Z96.641 Presence of right artificial hip joint (principal) | CPT/HCPCS: 99212 ==

== ENCOUNTER → 2020-09-14 10:03 | Outpatient (BNVA) | payer MEDICARE, SELFPAY | PROVIDERS: PCP Physician Assistant; Visit Provider Orthopaedic Surgery | DX: Z96.641 Presence of right artificial hip joint (principal) | CPT/HCPCS: 99212 ==

== ENCOUNTER 2020-11-18 07:23 | Outpatient (REF) | payer MEDICARE, SELFPAY ==
--- NOTE | ~2020-11-18 | XR_ITS ---
EXAMINATION: XR HIP, RIGHT CLINICAL INFORMATION: Right hip pain COMPARISON: Previous x-ray most recent August 2020 TECHNIQUE: Two views of the right hip and 2 views of the pelvis. FINDINGS: There is a right hip replacement in satisfactory position. On the frog-leg view there is cortical irregularity of the greater trochanter region with lucency and area of increased sclerosis. Appearance is questionable for heterotopic bone reaction. Possible healing fracture or infection cannot be excluded. There is [id number] arthritis of the left hip joint. Bones of the pelvis are unremarkable. XR/XR hip RT w [id number] IMPRESSION: Satisfactory appearance of right hip replacement. Area of cortical irregularity with increased sclerosis and lucency in the greater trochanter region appreciated on the frog-leg view only. This may represent heterotopic bone reaction related to surgery. Possible healing fracture or infraction cannot be excluded. Clinical correlation recommended.
== END 2020-11-18 07:24 | disposition home or self-care (01) ==
LOC: HO.HOSX 07:23
PROVIDERS: Visit Provider Orthopaedic Surgery
DX: Z47.1 Aftercare following joint replacement surgery (principal); Z96.641 Presence of right artificial hip joint
CPT/HCPCS: 73502; 99212

== ENCOUNTER 2020-11-29 10:21 | Outpatient (REF) | payer MEDICARE, SELFPAY ==
[2020-11-29 11:51] LABS: Prostate Specific Antigen 0.74 ng/mL (<0.05-4.0)
== END 2020-11-29 10:22 | disposition home or self-care (01) ==
LOC: HO.LAB 10:21
PROVIDERS: PCP Physician Assistant; Visit Provider Urology
DX: N40.0 Benign prostatic hyperplasia without lower urinary tract symptoms (principal); Z12.5 Encounter for screening for malignant neoplasm of prostate
CPT/HCPCS: 36415; 84153

== ENCOUNTER 2020-12-02 07:34 | Outpatient (REF) | payer MEDICARE, SELFPAY ==
[2020-12-02 08:23] LABS: MANUAL DIFF FLAG NO
[2020-12-02 08:31] LABS: Basophils Percent Auto 0.4 % (0-2); Eosinophils Absolute Auto 0.2 X10*3/uL (0.0-0.4); Eosinophils Percent Auto 4.3 % (0-4); Hematocrit 36.8 % (42-52); Hemoglobin 11.8 g/dl (14.0-18.0); Imm Gran Abs Auto 0.01 X10*3/uL (0.00-0.03); Imm Gran Pct Auto 0.2 % (0.0-0.4); Lymphocytes Absolute Auto 1.5 X10*3/uL (1.2-4.9); Lymphocytes Percent Auto 26.2 % (20-40); Mean Corpuscular HGB Conc 32.1 g/dl (31.0-36.0); Mean Corpuscular Volume 90.4 fL (80-98); Mean Platelet Volume 9.3 fL (9.4-12.4); Monocytes Absolute Auto 0.4 X10*3/uL (0.1-1.2); Monocytes Percent Auto 7.7 % (2-11); Neutrophils Absolute Auto 3.4 X10*3/uL (2.0-8.3); Neutrophils Percent Auto 61.2 % (45-73); Platelet Count 275 X10*3/uL (160-400); Red Blood Count 4.07 X10*6/uL (4.60-5.80); White Blood Count 5.6 X10*3/uL (4.8-10.8)
[2020-12-02 08:55] LABS: Alanine Aminotransferase 9 U/L (0-40); Albumin Level 4.3 g/dL (3.5-5.0); Alkaline Phosphatase 67 U/L (39-117); Anion Gap 14 (12-20); Aspartate Amino Transferase 14 U/L (5-37); Bilirubin Total 0.3 mg/dL (0.0-1.0); Blood Urea Nitrogen 24 mg/dL (9-16); Calcium 9.4 mg/dL (8.4-10.2); Carbon Dioxide 26 mmol/L (22-29); Chloride 105 mmol/L (96-108); Cholesterol 208 mg/dL; Estimated Glomerular Filt Rate > 60; Glucose Fasting 95 mg/dL (60-99); HDL Cholesterol 47 mg/dL; LDL Cholesterol Calculated 142 mg/dl; Potassium 4.6 mmol/L (3.3-5.1); Sodium 140 mmol/L (135-145); Total Protein 6.7 g/dL (6.5-8.0); Triglycerides 95 mg/dL
[2020-12-02 09:08] LABS: Thyroid Stimulating Hormone 1.52 uIU/mL (0.32-4.0)
== END 2020-12-02 07:35 | disposition home or self-care (01) ==
LOC: HO.LAB 07:34
PROVIDERS: PCP Physician Assistant; Visit Provider Physician Assistant
DX: E78.00 Pure hypercholesterolemia, unspecified (principal); N40.0 Benign prostatic hyperplasia without lower urinary tract symptoms; I10 Essential (primary) hypertension
CPT/HCPCS: 36415; 80053; 80061; 84443; 85025

== ENCOUNTER 2021-02-22 10:01 | Outpatient (REF) | payer MEDICARE, SELFPAY ==
--- NOTE | ~2021-02-22 | US_ITS ---
EXAMINATION: US EXTRACRANIAL CAROTID DUPLEX, BILATERAL CLINICAL INFORMATION: Right carotid bruit COMPARISON: None TECHNIQUE: Real-time ultrasound and Doppler techniques (integrating B-mode 2-D vascular images, Doppler spectral analysis and color-flow Doppler imaging) were utilized to interrogate the extracranial carotid arteries, the vertebral arteries and proximal subclavian arteries bilaterally. The degree of stenosis is determined by criteria similar to NASCET. FINDINGS: Right Side: 1. There is mild atherosclerotic plaque seen in the bifurcation/proximal ICA region. 2. The common carotid artery PSV proximally is 122 cm/s and distally 86 cm/s. 3. The proximal internal carotid artery velocities are 80 cm/s systolic and 21 cm/s diastolic. 4. The proximal external carotid artery PSV is 108 cm/s. 5. The vertebral artery shows antegrade flow. 6. The subclavian artery waveforms are normal. Left Side: 1. There is mild atherosclerotic plaque seen in the bifurcation/proximal ICA region. 2. The common carotid artery PSV proximally is 105 cm/s and distally 115 cm/s. 3. The proximal internal carotid artery velocities are 74 cm/s systolic and 26 cm/s diastolic. 4. The proximal external carotid artery PSV is 1:15 cm/s. 5. The vertebral artery shows antegrade flow. 6. The subclavian artery waveforms are normal. US/US carotid duplex BI IMPRESSION: 1. RIGHT: Mild atherosclerotic plaque. 0-49% right ICA stenosis. 2. LEFT: Mild atherosclerotic plaque. 0-49% left ICA stenosis.
== END 2021-02-22 10:02 | disposition home or self-care (01) ==
LOC: HO.US 10:01
PROVIDERS: Visit Provider Physician Assistant
DX: R09.89 Other specified symptoms and signs involving the circulatory and respiratory systems (principal)
CPT/HCPCS: 93880

== ENCOUNTER 2021-07-26 09:31 | Outpatient (REF) | payer MEDICARE, OTHER, SELFPAY ==
[2021-07-26 10:04] LABS: Hematocrit 36.9 % (42.0-52.0); Hemoglobin 12.3 g/dl (14.0-18.0); Mean Corpuscular HGB Conc 33.3 g/dl (31.0-36.0); Mean Corpuscular Hemoglobin 30.8 pg (27.0-33.0); Mean Corpuscular Volume 92.3 fL (80.0-98.0); Mean Platelet Volume 9.3 fL (9.4-12.4); Platelet Count 239 X10*3/uL (160-400); Red Cell Distribution Width 13.9 % (11.0-16.0); White Blood Count 4.6 X10*3/uL (4.8-10.8)
[2021-07-26 10:39] LABS: Alanine Aminotransferase 10 U/L (0-40); Albumin Level 4.3 g/dL (3.5-5.0); Alkaline Phosphatase 41 U/L (39-117); Anion Gap 12 (12-20); Aspartate Amino Transferase 15 U/L (5-37); Bilirubin Total 0.4 mg/dL (0.0-1.0); Blood Urea Nitrogen 18 mg/dL (9-16); Calcium 9.5 mg/dL (8.4-10.2); Carbon Dioxide 26 mmol/L (22-29); Chloride 108 mmol/L (96-108); Cholesterol 203 mg/dL; Estimated Glomerular Filt Rate > 60; Glucose Fasting 100 mg/dL (60-99); HDL Cholesterol 45 mg/dL; LDL Cholesterol Calculated 140 mg/dl; Potassium 4.6 mmol/L (3.3-5.1); Sodium 141 mmol/L (135-145); Total Protein 7.1 g/dL (6.5-8.0); Triglycerides 94 mg/dL
[2021-07-26 10:51] LABS: Creatinine Urine 201.58 mg/dL; Microalbum/Creatinine Ratio Ur 4.4 ug/mg cr
[2021-07-26 10:52] LABS: TSH reflex Free T4 1.82 uIU/mL (0.32-4.0)
== END 2021-07-26 09:32 | disposition home or self-care (01) ==
LOC: HO.LAB 09:31
PROVIDERS: PCP Physician Assistant; Visit Provider Physician Assistant
DX: E78.00 Pure hypercholesterolemia, unspecified (principal); I10 Essential (primary) hypertension
CPT/HCPCS: 36415; 80053; 80061; 82043; 84443; 85027

== ENCOUNTER → 2021-08-03 09:01 | Outpatient (BNVA) | payer MEDICARE, OTHER, SELFPAY | PROVIDERS: PCP Physician Assistant; Visit Provider Orthopaedic Surgery | DX: Z47.1 Aftercare following joint replacement surgery (principal); Z96.641 Presence of right artificial hip joint | CPT/HCPCS: 99212 ==

== ENCOUNTER 2021-09-28 08:02 | Outpatient (REF) | payer MEDICARE, OTHER, SELFPAY ==
--- NOTE | ~2021-09-28 | US_ITS ---
EXAMINATION: US RETROPERITONEAL LIMITED (AORTA) CLINICAL INFORMATION: Former smoker, screening for AAA. COMPARISON: None TECHNIQUE: Bergman-scale, color Doppler and spectral Doppler evaluation of the abdominal aorta. FINDINGS: There is moderate atherosclerotic calcification. The measurements of the aorta in maximum AP and transverse dimensions respectively are as follows: Proximal: 2.9 x 2.5 cm. Mid: 2.6 x 2.5 cm. Distal: 1.9 x 1.6 cm. PSV: 123 cm/s. The measurements of the common iliac arteries in maximum AP and TRV dimensions are as follows: Right Common Iliac Artery: 1.9 x 2.4 cm. Left Common Iliac Artery: 1.5 x 1.5 cm. US/US aorta IMPRESSION: 1. There is ectasia of the proximal and mid segments of the abdominal aortic aneurysm, without douglas aneurysm formation. 2. 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
== END 2021-09-28 08:03 | disposition home or self-care (01) ==
LOC: HO.US 08:02
PROVIDERS: PCP Physician Assistant; Visit Provider Physician Assistant
DX: Z13.6 Encounter for screening for cardiovascular disorders (principal); D64.89 Other specified anemias; Z87.891 Personal history of nicotine dependence
CPT/HCPCS: 76775

== ENCOUNTER 2021-12-08 10:56 | Outpatient (REF) | payer MEDICARE, OTHER, SELFPAY ==
[2021-12-08 12:50] LABS: Prostate Specific Antigen 0.73 ng/mL (<0.05-4.0)
== END 2021-12-08 10:57 | disposition home or self-care (01) ==
LOC: HO.LAB 10:56
PROVIDERS: PCP Physician Assistant; Visit Provider Urology
DX: Z12.5 Encounter for screening for malignant neoplasm of prostate (principal); N40.0 Benign prostatic hyperplasia without lower urinary tract symptoms
CPT/HCPCS: 36415; 84153; 99212

== ENCOUNTER 2022-02-05 07:17 | Outpatient (REF) | payer MEDICARE, OTHER, SELFPAY ==
[2022-02-05 08:10] LABS: Hematocrit 35.6 % (42.0-52.0); Hemoglobin 11.6 g/dl (14.0-18.0); Mean Corpuscular HGB Conc 32.6 g/dl (31.0-36.0); Mean Corpuscular Hemoglobin 30.1 pg (27.0-33.0); Mean Corpuscular Volume 92.5 fL (80.0-98.0); Mean Platelet Volume 9.6 fL (9.4-12.4); Platelet Count 252 X10*3/uL (160-400); Red Blood Count 3.85 X10*6/uL (4.60-5.80); Red Cell Distribution Width 13.6 % (11.0-16.0); White Blood Count 4.2 X10*3/uL (4.8-10.8)
[2022-02-05 08:43] LABS: Appearance Urine CLEAR; Color Urine YELLOW; Glucose Urine UA NEG (NEG); Leukocyte Esterase Urine NEG (NEG); Nitrite Urine NEG (NEG); Specific Gravity - Urine >= 1.030 (1.005-1.025); UACC Culture Trigger NO; Urine Blood 1+ (NEG); Urine Ketones NEG (NEG); Urine Protein NEG (NEG-TRACE)
[2022-02-05 08:45] LABS: Alanine Aminotransferase 11 U/L (0-40); Albumin Level 4.3 g/dL (3.5-5.0); Alkaline Phosphatase 38 U/L (39-117); Anion Gap 14 (12-20); Aspartate Amino Transferase 15 U/L (5-37); Bilirubin Total 0.2 mg/dL (0.0-1.0); Blood Urea Nitrogen 18 mg/dL (9-16); Calcium 9.1 mg/dL (8.4-10.2); Carbon Dioxide 26 mmol/L (22-29); Chloride 106 mmol/L (96-108); Cholesterol 189 mg/dL; Estimated Glomerular Filt Rate > 60; Glucose Fasting 95 mg/dL (60-99); HDL Cholesterol 45 mg/dL; Iron 51 mcg/dL (45-160); LDL Cholesterol Calculated 124 mg/dl; Percent Iron Saturation 17 % (15-50); Potassium 4.4 mmol/L (3.3-5.1); Sodium 142 mmol/L (135-145); Total Iron Binding Capacity 301 mcg/dL (228-428); Total Protein 6.7 g/dL (6.5-8.0); Triglycerides 100 mg/dL; Unsaturated Iron Binding 250 ug/dL
[2022-02-05 08:53] LABS: Creatinine Urine 132.53 mg/dL; Microalbum/Creatinine Ratio Ur 5.2 ug/mg cr
[2022-02-05 09:09] LABS: Prostate Specific Antigen Scr 1.11 ng/mL (<0.05-4.0)
[2022-02-05 09:16] LABS: Squamous Epithelial Cell Urine TRACE /LPF
[2022-02-05 09:17] LABS: Sperm Urine NOTED; WBC Urine 0-2 /HPF (0-4)
== END 2022-02-05 07:18 | disposition home or self-care (01) ==
LOC: HO.LAB 07:17
PROVIDERS: PCP Physician Assistant; Visit Provider Physician Assistant
DX: Z12.5 Encounter for screening for malignant neoplasm of prostate (principal); E78.00 Pure hypercholesterolemia, unspecified; I10 Essential (primary) hypertension; D50.9 Iron deficiency anemia, unspecified
CPT/HCPCS: 36415; 80053; 80061; 81001; 82043; 83540; 84153; 85027

== ENCOUNTER 2022-06-26 07:32 | Outpatient (REF) | payer MEDICARE, OTHER, SELFPAY ==
[2022-06-26 07:53] LABS: Hematocrit 37.4 % (42.0-52.0); Hemoglobin 12.1 g/dl (14.0-18.0); Mean Corpuscular HGB Conc 32.4 g/dl (31.0-36.0); Mean Corpuscular Hemoglobin 30.2 pg (27.0-33.0); Mean Corpuscular Volume 93.3 fL (80.0-98.0); Mean Platelet Volume 9.1 fL (9.4-12.4); Platelet Count 252 X10*3/uL (160-400); Red Blood Count 4.01 X10*6/uL (4.60-5.80); Red Cell Distribution Width 13.9 % (11.0-16.0); White Blood Count 5.2 X10*3/uL (4.8-10.8)
[2022-06-26 08:40] LABS: Ferritin 91 ng/mL (20-250); Prostate Specific Antigen Scr 0.87 ng/mL (<0.05-4.0); TSH reflex Free T4 2.19 uIU/mL (0.32-4.0)
[2022-06-26 08:52] LABS: Alanine Aminotransferase 11 U/L (0-40); Albumin Level 4.5 g/dL (3.5-5.0); Alkaline Phosphatase 38 U/L (39-117); Anion Gap 11 (12-20); Aspartate Amino Transferase 15 U/L (5-37); Bilirubin Total 0.5 mg/dL (0.0-1.0); Blood Urea Nitrogen 22 mg/dL (9-16); Calcium 9.7 mg/dL (8.4-10.2); Carbon Dioxide 28 mmol/L (22-29); Chloride 106 mmol/L (96-108); Estimated Glomerular Filt Rate > 60; Folate 15.3 ng/mL (> or = 4.0); Glucose Fasting 99 mg/dL (60-99); Potassium 4.5 mmol/L (3.3-5.1); Sodium 140 mmol/L (135-145); Vitamin B12 442 pg/mL (200-900)
[2022-06-26 09:16] LABS: Appearance Urine Clear; Color Urine Yellow; Glucose Urine UA Negative (Negative); Leukocyte Esterase Urine Negative (Negative); Nitrite Urine Negative (Negative); Specific Gravity - Urine 1.025 (1.005-1.025); Urine Blood Negative (Negative); Urine Ketones Negative (Negative); Urine Protein Negative (Neg-Trace)
[2022-06-26 09:35] LABS: Creatinine Urine 155.41 mg/dL; Microalbum/Creatinine Ratio Ur 3.8 ug/mg cr
== END 2022-06-26 07:33 | disposition home or self-care (01) ==
LOC: HO.LAB 07:32
PROVIDERS: PCP Physician Assistant; Visit Provider Physician Assistant
DX: I10 Essential (primary) hypertension (principal); D64.89 Other specified anemias; R30.0 Dysuria; E53.8 Deficiency of other specified B group vitamins; Z12.5 Encounter for screening for malignant neoplasm of prostate
CPT/HCPCS: 36415; 80053; 81003; 82043; 82607; 82728; 82746; 84153; 84443; 85027

== ENCOUNTER 2023-02-06 06:44 | Outpatient (REF) | payer MEDICARE, OTHER, SELFPAY ==
[2023-02-06 07:10] LABS: Hematocrit 34.6 % (42.0-52.0); Hemoglobin 11.3 g/dl (14.0-18.0); Mean Corpuscular HGB Conc 32.7 g/dl (31.0-36.0); Mean Corpuscular Hemoglobin 30.5 pg (27.0-33.0); Mean Corpuscular Volume 93.3 fL (80.0-98.0); Mean Platelet Volume 9.2 fL (9.4-12.4); Platelet Count 225 X10*3/uL (160-400); Red Blood Count 3.71 X10*6/uL (4.60-5.80); Red Cell Distribution Width 13.8 % (11.0-16.0); White Blood Count 4.3 X10*3/uL (4.8-10.8)
[2023-02-06 07:46] LABS: Alanine Aminotransferase 10 U/L (0-40); Albumin Level 4.1 g/dL (3.5-5.0); Alkaline Phosphatase 39 U/L (39-117); Anion Gap 12 (12-20); Aspartate Amino Transferase 15 U/L (5-37); Bilirubin Total 0.2 mg/dL (0.0-1.0); Blood Urea Nitrogen 20 mg/dL (9-16); Calcium 9.4 mg/dL (8.4-10.2); Carbon Dioxide 26 mmol/L (22-29); Chloride 108 mmol/L (96-108); Cholesterol 190 mg/dL; Estimated Glomerular Filt Rate > 60; Glucose Fasting 100 mg/dL (60-99); HDL Cholesterol 46 mg/dL; LDL Cholesterol Calculated 127 mg/dl; Potassium 4.2 mmol/L (3.3-5.1); Sodium 142 mmol/L (135-145); Total Protein 6.7 g/dL (6.5-8.0); Triglycerides 86 mg/dL
[2023-02-06 08:01] LABS: Prostate Specific Antigen Scr 0.86 ng/mL (<0.05-4.0); TSH reflex Free T4 2.11 uIU/mL (0.32-4.0)
[2023-02-06 10:58] LABS: Creatinine Urine 135.38 mg/dL; Microalbum/Creatinine Ratio Ur 4.4 ug/mg cr
== END 2023-02-06 06:45 | disposition home or self-care (01) ==
LOC: HO.LAB 06:44
PROVIDERS: Absent Provider Urology; PCP Physician Assistant; Visit Provider Physician Assistant
DX: Z12.5 Encounter for screening for malignant neoplasm of prostate (principal); N40.0 Benign prostatic hyperplasia without lower urinary tract symptoms; I10 Essential (primary) hypertension
CPT/HCPCS: 36415; 80053; 80061; 82043; 84153; 84443; 85027

== ENCOUNTER 2023-02-14 08:48 | Outpatient (AMB) | payer MEDICARE, SELFPAY ==
[2023-02-14 08:54] VITALS: BP 132/84; PULSE 73; O2SAT 97; BMI 32.8
--- NOTE | 2023-02-14 08:54 | A.OFFPC_ITS ---
Vital Signs 02/14/23 08:54 Height 5 ft 6 in Weight 203 lb 8 oz BMI 32.8 BP 132/84 Blood Pressure Location Lt brachial Position Sitting Pulse 73 Pulse Source Pulse Oximeter Pulse Oximetry (%) 97 Oxygen Delivery Method Room Air Intake Visit Reasons: Annual Exam Allergies No Known Allergies Allergy (Verified 02/14/23 09:19) Medication List - Last Reconciled 02/14/23 by Carl Stubbs PA-C acetaminophen ER (Arthritis Pain Relief (acetaminophen) ER) 650 mg PO Q8H 30 days fluoxetine 40 mg PO QAM 90 days fluticasone propionate 50 mcg/actuation 1 spray intranasal DAILY lisinopril 20 mg PO DAILY lovastatin 40 mg PO DAILY multivitamin 1 tab PO DAILY Tobacco use date assessed: 09/06/22 Dental Screening Dental Screen Date: 02/14/23 Did you have a dental visit in the last 12 months?: Yes Did you have a dental problem in the last 6 months where you did not have access to dental care?: No Was dental information given to patient?: Patient has dentist HPI Annual Exam HPI Details Cholo is a 67 y/o M here today for?a PE,.? Pmhx significant for HLD, HTN, Anxiety, Micoscopic hematuria, BPH, recovering addict. Concerns--> reports having a groin itch over the last several weeks. Has been using [id number] hydrocortisone and antifungal creams without much relief. .. ? .. ? HLD: Has been stable with Statin therapy, lipid panel slightly more elevated than previous. Patient reports diet has been the same and would like to continue following the lipid panel. .. Normocytic anemia:? Has been anemic for many years now though has worsened since his total hip replacement.? Iron studies normal. ? Otherwise patient without any signs and symptoms of anemia such as dizziness, cold intolerance, bruising.? Will continue to follow. ? .. ? HTN: No headaches or CP reported .? Pressures have been stable with lisinopril 20 mg.. ? .. ? 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 ?? vaccines:? up-to-date with COVID, flu, pneumonia, tetanus and shingles vaccines Colorectal cancer screening:? Up-to-date with colonoscopy- 2018 -normal repeat 10 years Laboratory Tests 06/26/22 02/06/23 02/06/23 07:37 06:57 06:57 RBC 3.71 L Hgb 11.3 L Creatinine 0.95 Fasting Glucose 99 100 H Cholesterol 190 LDL Cholesterol, C alc 127 TSH 2.11 [facility], [facility] Medical History (Updated 02/14/23 @ 12:06 by Carl Stubbs PA-C) History of anxiety History of cataract History of depression HLD (hyperlipidemia) HTN (hypertension) Primary localized osteoarthritis of right hip Surgical History History of cataract surgery History of colonoscopy Family History Father Renal cancer Mental health disorder Mother Alzheimers disease Sister Endometrial cancer Social History Household Members: None Housing: House Are you a primary manager home healthcare to a significant other at home: No Do you presently have visiting nurse or other home services: No Alcohol intake: never Patient Tobacco Use Status: Never used Tobacco e-Cigarette/Vaping Use: Never Used Second Hand Smoke Exposure: No service: No Current occupational status: disabled 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 1. Little interest or pleasure in doing things: not at all 2. Feeling down, depressed, or hopeless: nearly every day 3. Trouble falling or staying asleep, or sleeping too much: nearly every day 4. Feeling tired or having little energy: not at all 5. Poor appetite or overeating: not at all 6. Feeling bad about yourself - or that you are a failure or have let yourself or your family down: not at all 7. Trouble concentrating on things, such as reading the newspaper or watching television: not at all 8. Moving or speaking so slowly that other people could have noticed. Or the opposite - being so fidgety or restless that you have been moving around a lot more than usual: not at all 9. Thoughts that you would be better off or of hurting yourself in some way: not at all Total score: 6 Depression Screening Interpretation: Positive 25885 - PHQ-9 Billing: Yes Source: Developed by Drs. Nestor Michelle, Leslye Almazan, Michael Fry and colleagues, with an educational samanta from [employer]. Thrive Questionnaire Date Thrive assessed: 09/06/22 I am a: Patient What is your living situation today?: I have a steady place to live Within the past 12 months, did the food you bought not last and you didn't have the money to get more?: Never true Within the past 12 months, did you worry whether your food would run out before you got money to buy more?: Never true Do you have trouble paying for medicines?: No Do you have trouble getting transportation to medical appointments?: No Do you have trouble paying your heating and electricity bill?: No Do you have trouble taking care of your child, family member or friend?: No Do you have trouble with day-to-day activities such as bathing, preparing meals, shopping, managing finances, etc.?: No Are you currently unemployed and looking for a job?: No Are you interested in more education?: No Currently or been in a relationship where the following occur: no concerns reported AUDIT C Alcohol Use Questionnaire (AUDIT-C) 1. How often do you have a drink containing alcohol?: Never 3. How often do you have six or more drinks on one occasion?: Never Total Score: 0 VANNA-7 AMB Questionnaire VANNA-7 Date VANNA - 7 assessed: 09/06/22 Feeling nervous, anxious, or on edge: 1 = Several days Not being able to stop or control worryin = Not at all Worrying too much about different things: 0 = Not at all Trouble relaxin = Not at all Being so restless that it is hard to sit still: 0 = Not at all Becoming easily annoyed or irritable: 3 = Nearly every day Feeling afraid as if something awful might happen: 0 = Not at all Total VANNA-7 score (0-4 normal; 5-9 mild; 10-14 moderate; 15-21 severe): 4 Source: Developed by Leslye Finn. Tha, Michael Fry and colleagues, with an educational samanta from [employer]. VANNA-7 Assessment Billing VANNA-7 Assessment Tool: VANNA-7 Assessment 21183 Review of Systems Const Denies body aches, Denies chills, Denies excessive sweating, Denies fatigue, Denies fever(s) and Denies headache(s) Eyes Denies blurry vision ENT Denies dysphagia, Denies vertigo, Denies dizziness, Denies headache(s), Denies hearing loss and Denies tinnitus Card Denies chest pain, Denies chest pain with activity, Denies syncope, Denies irregular heart rhythm and Denies dyspnea Resp Denies chest congestion, Denies cough, Denies hemoptysis, Denies dyspnea and Denies wheezing GI Denies abdominal pain, Denies melena, Denies hematochezia, Denies coffee ground emesis, Denies dysphagia, Denies diarrhea, Denies nausea and Denies vomiting Denies difficulty urinating, Denies dysuria, Denies urinary frequency, Denies urinary hesitancy and Denies urinary urgency Musc Denies arthralgias, Denies limited range of motion, Denies muscle cramps and Denies muscle weakness Skin/Breast Denies rash and Denies skin ulcer Neuro Denies Abnormal speech present, Denies confusion, Denies vertigo, Denies dizzine ss, Denies syncope, Denies headache(s), Denies memory loss and Denies seizure- like activity Psych Denies anxiety, Denies confusion, Denies depression, Denies memory loss, Denies panic attacks and Denies paranoia Endo Denies excessive sweating, Denies fatigue, Denies flushing, Denies polydipsia and Denies polyuria Aller/Immun Denies wheezing Physical exam (Primary Care) Vital Signs: Last Vital Signs Pulse 73 02/14/23 08:54 BP 132/84 02/14/23 08:54 Pulse Ox 97 02/14/23 08:54 Oxygen Delivery Method Room Air 02/14/23 08:54 BMI result Body Mass Index 32.8 BMI Assessment/Plan discussion: High Tobacco/Smoking Status: Tobacco use Status Tobacco use date assessed 09/06/22 02/14/23 09:00 Patient Tobacco Use Status Never used Tobacco 02/14/23 09:00 e-Cigarette/Vaping Use Never Used 02/14/23 09:00 PHQ-9: PHQ-9 Score PHQ-9: Total score 6 02/14/23 09:26 Depression Screening Interpretation: Positive Thrive Assessment: Date of Thrive Assessment Date Thrive assessed 09/06/22 02/14/23 09:00 Currently or been in a relationship where the following occur: no concerns reported Const General: cooperative, comfortable, no acute distress, alert and awake; No confusion Orientation/consciousness: oriented to person, oriented to place, patient oriented x3 and No confusion HENMT Head: Yes normocephalic Ears: external ears normal and TM's normal bilaterally Face and sinus: No sinus tenderness Mouth: Normal oral and palatal mucosa present and tongue normal Teeth and gingiva: dentition normal and gingiva normal Throat: Yes posterior oropharynx normal, Yes tonsils normal and Yes uvula midline Eyes Conjunctivae: conjunctivae normal Sclerae: sclerae normal Pupils: Equal, round and reactive pupils present EOM: EOMs intact bilaterally Direct Ophthalmoscopy: No no photophobia Neck Neck: Yes no lymphadenopathy, No tender and Yes no JVD Thyroid: Thyroid normal Carotids: no bruits Chest Chest palpation & inspection: no tenderness Resp Effort & Inspection: normal respiratory effort, no audible wheezes, not labored and no stridor Auscultation: no crackles, no rales, no rhonchi and no wheezes Cardio Jugular venous distension: no JVD Rate: regular rate, not bradycardic and not tachycardic Rhythm: regular rhythm Bruits: no carotid bruits Peripheral pulses: Peripheral pulses 2+ throughout GI Inspection: Yes normal to inspection, No abdominal wall ecchymosis and No visible herniation Palpation (GI): Soft to palpation, nontender, no guarding, not rigid and No hepatosplenomegaly present Auscultation: normoactive bowel sounds General: Yes no CVA tenderness Male genitals images: 1. LEFT CORONARY PEREZ WITH MACERATED IRRITATED SKIN. NO MASSES NOTED. NO DRAINAGE OR ERYTHEMA Back/Spine/Pelvis Back: no CVA tenderness and No back tenderness Cervical Spine: cervical ROM normal Thoracic/Lumbar Spine: thoracic and lumbar spine normal to inspection, straight leg raise negative bilaterally, No thoraco-lumbar ROM limited and No lumbar spinal tenderness Skin Lesions: no lesions Rashes: no rashes Wounds: no wounds Neuro General: oriented to person, oriented to place, patient oriented x3, CN's II-XI intact bilaterally and No confusion Cranial nerves: Yes Equal, round and reactive pupils present and Yes Normal accommodation reflex present Cognition (Neuro): normal cognition Speech: No Abnormal speech present Gait exam (Neuro): Normal gait present Motor exam (neuro): 5/5 motor strength present throughout Extrem Right upper extremity: full ROM; no cyanosis Left upper extremity: full ROM; no cyanosis Right lower extremity: no edema Left lower extremity: no edema Psych Appearance: grossly normal Mental Status: mental status grossly normal Affect: normal affect Attitude: cooperative Thought process: Normal thought process present Assessment and Plan Assessment & Plan (1) Annual physical exam: Code(s): Z00.00 - Encounter for general adult medical examination without abnormal findings (2) HTN (hypertension): Code(s): I10 - Essential (primary) hypertension Qualifiers: Hypertension type: primary hypertension Qualified Code(s): I10 - Es sential (primary) hypertension Plan: Patient's blood pressure acceptable today in office. Continue his current dose of lisinopril with goal blood pressure be below 140/90 (3) HLD (hyperlipidemia): Code(s): E78.5 - Hyperlipidemia, unspecified Qualifiers: Hyperlipidemia type: pure hypercholesterolemia Qualified Code(s): E78.00 - Pure hypercholesterolemia, unspecified Plan: Patient's fasting lipid panel under excellent control with statin therapy. Goal LDL to remain below 130. (4) BPH (benign prostatic hyperplasia): Code(s): N40.0 - Benign prostatic hyperplasia without lower urinary tract symptoms Qualifiers: Lower urinary tract symptom presence: symptoms absent Qualified Code(s): N40.0 - Benign prostatic hyperplasia without lower urinary tract symptoms Plan: Patient continues to follow urology for his benign prostatic hypertrophy. He denies any urinary symptoms. Most recent PSA (5) Obese: Code(s): E66.9 - Obesity, unspecified Qualifiers: Body mass index: BMI 33.0-33.9 Obesity classification: adult class 1 (BMI 30 - 34.9) Obesity type: due to excess calories Serious obesity comorbidity presence: without serious comorbidity Qualified Code(s): E66.09 - Other obesity due to excess calories; Z68.33 - Body mass index [BMI] 33.0-33.9, adult Plan: Patient does understand his BMI is over 30 will continue working on being more physically active and adapting to better eating habits to reduce his weight (6) Anemia: Code(s): D64.9 - Anemia, unspecified Qualifiers: Anemia type: other cause Other causes of anemia: other cause, not classified Qualified Code(s): D64.89 - Other specified anemias Plan: Patient continues to have a stable anemia for the last several years. Likely anemia of chronic disease due to normal MCV. Otherwise asymptomatic without any bleeding bruising, fatigue . (7) Primary localized osteoarthritis of right hip: Code(s): M16.11 - Unilateral primary osteoarthritis, right hip Plan: Patient reports he does have continued hip pain from time to time attributes this to being more sedentary. He feels he needs to be more physically active. He has followed up with his orthopedic surgeon and whom recommends him being more physically active as well. He does use Tylenol which does take away his pain. (8) Tinea unguium: Code(s): B35.1 - Tinea unguium Plan: Patient's presentation most consistent with tinea infection. Will supply patient with nystatin powder to use for few weeks. If nystatin powder fails will try topical antibiotic. He will bring this up with his urologist while. (9) VANNA (generalized anxiety disorder): Code(s): F41.1 - Generalized anxiety disorder Plan: Patient's VANNA-7 score positive for mild anxiety which has been existing condition for him. Patient continues SSRI therapy with good effect. Orders: Orders Vitamin B12 and Folate Today D64.89 - Other specified anemias, E53.8 - Deficiency of other specified B group vitamins Comprehensive Red House. Panel Fast Today I10 - Essential (primary) hypertension IRON PROFILE Today D50.9 - Iron deficiency anemia, unspecified, D64.89 - Other specified anemias Lipid Panel Today E78.00 - Pure hypercholesterolemia, unspecified Microalbumin, Random (w Creat) Today I10 - Essential (primary) hypertension Complete Blood Count no Diff Today D64.89 - Other specified anemias Referrals Urology Referral N40.0 - Benign prostatic hyperplasia without lower urinary tract symptoms Medications: New nystatin 1 appl topical DAILY 30 days 60 grams 0RF B35.1 - Tinea unguium mupirocin 2% 1 appl topical BID 15 days 22 grams 0RF L08.9 - Local infection of the skin and subcutaneous tissue, unspecified, S30.851A - Superficial foreign body of abdominal wall, initial encounter Coding Level of Care Code Est Pt Prev Care >65y(45246) Diagnoses Annual physical exam Z00.00 HTN (hypertension) I10 Hypertension type: primary hypertension HLD (hyperlipidemia) E78.00 Hyperlipidemia type: pure hypercholesterolemia BPH (benign prostatic hyperplasia) N40.0 Lower urinary tract symptom presence: symptoms absent Obese E66.09; Z68.33 Body mass index: BMI 33.0-33.9 Obesity classification: adult class 1 (BMI 30 - 34.9) Obesity type: due to excess calories Serious obesity comorbidity presence: without serious comorbidity Anemia D64.89 Anemia type: other cause Other causes of anemia: other cause, not classified Primary localized osteoarthritis of right hip M16.11 Tinea unguium B35.1 VANNA (generalized anxiety disorder) F41.1 Additional Codes VANNA-7 Assessment Billing - VANNA-7 Assessment Tool: VANNA-7 Assessment [id number] ([id number])
== END 2023-02-14 10:11 | disposition home or self-care (01) ==
PROVIDERS: PCP Physician Assistant; Visit Provider Physician Assistant
DX: Z00.00 Encounter for general adult medical examination without abnormal findings (principal); I10 Essential (primary) hypertension; E66.09 Other obesity due to excess calories; Z68.33 Body mass index [BMI] 33.0-33.9, adult; E78.00 Pure hypercholesterolemia, unspecified; N40.0 Benign prostatic hyperplasia without lower urinary tract symptoms; D64.89 Other specified anemias; M16.11 Unilateral primary osteoarthritis, right hip; B35.1 Tinea unguium; F41.1 Generalized anxiety disorder
CPT/HCPCS: 99397

== ENCOUNTER 2023-07-18 10:56 | Emergency (ER) | payer MEDICARE, SELFPAY ==
--- NOTE | ~2023-07-18 | CT_ITS ---
EXAMINATION: CT CERVICAL SPINE WITHOUT CONTRAST CLINICAL INFORMATION: Neck injury and pain COMPARISON: None available. TECHNIQUE: Multiple 2.0 mm axial images were obtained from base of skull to T1 levels without IV contrast enhancement. Sagittal and coronal 2.0 mm bone window images were reconstructed from axial image data. This CT examination was performed using dose optimization techniques as appropriate, variously including the following: *Automated exposure control *Adjustment of mA and/or kV according to patient size (this includes techniques or standardized protocols for targeted exams where dose is matched to indication/reason for exam; i.e. extremities or head) *Use of iterative reconstruction technique DLP: 453 mGy-cm FINDINGS: C1/C2: Bony structures are intact with normal alignment. There is no spinal stenosis. C2/C3: Bony structures are intact with normal alignment. There is no spinal stenosis. Bilateral C2/C3 neuroforamina are patent. Bilateral apophyseal joints are intact with normal alignment. C3/C4: Bony structures are intact with normal alignment. There is no spinal stenosis. There is moderate asymmetric left C3/C4 neuroforaminal stenosis. Bilateral apophyseal joints are intact with normal alignment. C4/C5: Bony structures are intact with normal alignment. There is no spinal stenosis. Bilateral C4/C5 neuroforamina are patent. Bilateral apophyseal joints are intact with normal alignment. C5/C6: Bony structures are intact with anterior C5 on C6 displacement by 0.2 cm. There is marked decrease in intervertebral disc height. Small sharp anterior and posterior syndesmophytes are present. There is no spinal stenosis. Bilateral C5/C6 neuroforamina are patent. Bilateral apophyseal joints are intact with normal alignment. C6/C7: Bony structures are intact with normal alignment. There is marked decrease in intervertebral disc height. Small sharp anterior and posterior syndesmophytes are present. There is no spinal stenosis. There is moderate asymmetric left C6/C7 neuroforaminal stenosis. Bilateral apophyseal joints are intact with normal alignment. C7/T1: Bony structures are intact with anterior C7 on T1 displacement by 0.2 cm. There is marked decrease in intervertebral disc height. There is mild decrease in intervertebral disc height. There is no spinal stenosis. Bilateral C7/T1 neuroforamina are patent. Bilateral apophyseal joints are intact with normal alignment. Multilevel bilateral apophyseal joint and uncovertebral joint osteoarthritis with loss of joint space, sclerosis, facet hypertrophy and osteophytosis are seen. CT/CT cervical spine wo IV con IMPRESSION: 1. No acute fractures or subluxations. 2. There is multilevel cervical spondylosis, degenerative disc disease and apophyseal joint osteoarthritis. 3. Grade 1 C5-C6 and C7-T1 spondylolisthesis. 4. Moderate asymmetric left C3/C4 and left C6/C7 neuroforaminal stenosis.
--- NOTE | ~2023-07-18 | XR_ITS ---
EXAMINATION: XR CLAVICLE, LEFT CLINICAL INFORMATION: Status post fall. COMPARISON: None available. TECHNIQUE: Straight AP and cephalad angulated AP views of the left clavicle. FINDINGS: The left clavicle is intact. No displaced fracture or dislocation. Hypertrophic changes of the acromioclavicular joint. XR/XR clavicle LT IMPRESSION: No acute abnormality.
--- NOTE | ~2023-07-18 | CT_ITS ---
EXAMINATION: CT HEAD WITHOUT CONTRAST CLINICAL INFORMATION: Blunt head trauma without loss of consciousness, significant head injury and posttraumatic headache. COMPARISON: None available. TECHNIQUE: Contiguous axial imaging was performed from the skull base to vertex without intravenous administration of contrast. This CT examination was performed using dose optimization techniques as appropriate, variously including the following: *Automated exposure control *Adjustment of mA and/or kV according to patient size (this includes techniques or standardized protocols for targeted exams where dose is matched to indication/reason for exam; i.e. extremities or head) *Use of iterative reconstruction technique DLP: 482 mGy-cm FINDINGS: Ventricles, sulci and cisterns are dilated. Focal low density lesion measuring 0.9 x 0.7 cm in size is seen in left upper anterior frontal deep white matter at the superior border of left lateral ventricle. A high attenuation lesion is seen at lateral posterior left internal capsule posterior limb, measuring 0.5 cm in AP diameter, 0.8 cm in width, 0.7 cm in vertical height, mean attenuation of 56.6 Hounsfield units. There is no midline shift. Bergman and white matter differentiation is normal. Bone window images show no evidence of skull fracture. Moderate circumferential mucosal thickening is seen in the partially visualized lower right maxillary sinus. There is opacification of anterior left maxillary sinus. Bilateral ethmoid sinuses show moderate mucosal thickening. CT/CT head/brain wo IV con IMPRESSION: 1. High attenuation lesion at the lateral posterior left internal capsule posterior limb of the internal capsule. This could represent a small intraparenchymal hemorrhage. 2. 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 3. There is no skull fracture. 4. There is bilateral maxillary and ethmoid sinusitis. 5. Findings are reported verbally to TAMEKA Nelsno on 07/18/2023 at 1330 hours.
[2023-07-18 11:00] VITALS: BP 177/93; PULSE 70; RESP 18; TEMP 36.6; O2SAT 98; BMI 29.5
--- NOTE | 2023-07-18 11:10 | ED_ITS ---
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 Ambulatory after incident. Denies symptoms prior to fall. Denies nausea/vomiting, vision change/loss, incontinence/retention, abdominal pain, hip pain. Tetanus unknown Related Data Home Medications Medication Instructions Recorded Confirmed multivitamin 1 tab PO DAILY 07/13/20 02/14/23 Previous Rx's Medication Instructions Recorded fluticasone propionate 50 1 spray intranasal DAILY #16 grams 12/05/21 mcg/actuation nasal spray,suspension acetaminophen 650 mg 650 mg PO Q8H 30 days #90 tabs 10/01/22 tablet,extended release (Arthritis Pain Relief (acetaminophen) ER) lisinopril 20 mg tablet 20 mg PO DAILY #90 tabs 11/30/22 lovastatin 40 mg tablet 40 mg PO DAILY #90 tabs 11/30/22 fluoxetine 40 mg capsule 40 mg PO QAM 90 days #90 caps 12/04/22 mupirocin 2 % topical ointment 1 appl topical BID 15 days #22 02/14/23 grams nystatin 100,000 unit/gram topical 1 appl topical DAILY 30 days #60 02/14/23 powder grams Allergies Allergy/AdvReac Type Severity Reaction Status Date / Time No Known Allergies Allergy Verified 07/18/23 10:59 Review of Systems 2 Review of Systems: Constitutional: No Fever, No Chills ENT/Mouth: No Ear Pain, No Nasal Congestion, No sore throat, No Rhinorrhea, No Swallowing Difficulty Cardiovascular: No Chest Pain, No SOB Respiratory: No Cough, No Sputum, No Wheezing Gastrointestinal: No Nausea, No Vomiting, No Diarrhea, No Constipation, No Abdominal pain Genitourinary: No Dysuria, No Urinary Frequency, No Hematuria, No Urinary Incontinence/retention, No Flank Pain Musculoskeletal: + joint pain, + Myalgias, No Joint Swelling Skin: + Skin Lesions, No rash Neuro: No Weakness, No Numbness, No Paresthesias, +BAUER, + lightheaded (resolved) Yes all other systems are reviewed and are negative Constitutional: Constitutional: Reports as per HPI Neurologic: Denies Abnormal speech present [facility] Past Medical History Attestation statement: The following information was validated with the patient. Source: old records reviewed Onset Date is defined in the Problem List Problems that require an onset date and time if occurred within 24 hrs of arrival to the ED Aortic Dissection and Rupture; Neurologic impairment; Cardiopulmonary Arrest; Endotracheal Intubation; Insertion or Replacement of Mechanical Circulatory Assist Device Medical History History of depression History of anxiety Primary localized osteoarthritis of right hip History of cataract HLD (hyperlipidemia) HTN (hypertension) Surgical History History of cataract surgery History of colonoscopy Family History Family History Father Renal cancer Mental health disorder Mother Alzheimers disease Sister Endometrial cancer Social History Social History Household Members: None Housing: House Are you a primary child care to a significant other at home: No Do you presently have visiting nurse or other home services: No Alcohol intake: never Comment: advised to move rugs Patient Tobacco Use Status: Never used Tobacco e-Cigarette/Vaping Use: Never Used Second Hand Smoke Exposure: No Advance Directives: No Advance Directives Information Provided: No service: No Current occupational status: disabled 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 Bleeding controlled. No hematoma. No palpable skull depression. Head: Yes No palpable skull fracture present, Yes atraumatic, No Ellison's sign and No raccoon eyes Ears: hearing grossly normal bilaterally General nose exam: Normal external nose present Face and sinus: Yes normal facial exam Mouth: Normal oral and palatal mucosa present Throat: Yes posterior oropharynx normal, Yes uvula midline and No peritonsillar mass Eyes General: appearance normal, both eyes and all related structures Pupils: Equal, round and reactive pupils present EOM: EOMs intact bilaterally Neck Other: + bilateral trapezius muscle/neck MSK tenderness to palpation Neck: Yes normal visual inspection and Yes no meningeal signs Chest Other: + left clavicular tenderness. No deformity Chest palpation & inspection: normal inspection of the chest and no crepitus Resp Effort & Inspection: normal respiratory effort and no respiratory distress Auscultation: clear to auscultation bilaterally Cardio Rate: regular rate Heart sounds: S1 normal heart sound present and S2 normal heart sound present GI Inspection: Yes normal to inspection Palpation (GI): Soft to palpation and nontender Back/Spine/Pelvis Other: No midline cervical/thoracic/lumbar spinous tenderness/step-off or deformity Skin Rashes: no rashes Neuro General: patient oriented x3, gait normal, tone normal, moves all extremities, no meningeal signs, no focal motor deficits and CN's II-XI intact bilaterally Cranial nerves: Yes CN's II-XII intact bilaterally, Yes Equal, round and reactive pupils present and Yes Bilaterally intact EOM present Cognition (Neuro): normal cognition Speech: No Abnormal speech present Gait exam (Neuro): Normal gait present Motor exam (neuro): 5/5 motor strength present throughout Extrem General: Yes normal to inspection Course Course Course Narrative: RME- 68 year male presents for evaluation after a head injury. He reports that he slipped on the ice and fell backwards striking the back of his head. He has a small laceration to the right posterior scalp. Plan for CT imaging CT head/brain wo IV con IMPRESSION: 1. High attenuation lesion at the lateral posterior left internal capsule posterior limb of the internal capsule. This could represent a small intraparenchymal hemorrhage. 2. 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 3. There is no skull fracture. 4. There is bilateral maxillary and ethmoid sinusitis. 5. Findings are reported verbally to TAMEKA Nelson on 07/18/[address] cervical spine wo IV con IMPRESSION: 1. No acute fractures or subluxations. 2. There is multilevel cervical spondylosis, degenerative disc disease and apophyseal joint osteoarthritis. 3. Grade 1 C5-C6 and C7-T1 spondylolisthesis. 4. Moderate asymmetric left C3/C4 and left C6/C7 neuroforaminal stenosis. > 1338-- [facility] transfer line called. Will obtain labs -[id number]-spoke with ED trauma attending Dr. Bolanos who accepted transfer, ED to ED with trauma consult Medications Administered Discontinued Medications Generic Name Dose Route Start Last Admin Trade Name Freq PRN Reason Stop Dose Admin Diphtheria/Tetanus/Acell Pertussis 0.5 ml 07/18/23 12:39 07/18/23 13:21 Diphth,Pertus(Acell),Tet Adult 0.5 Ml Syringe IM 07/18/23 12:40 0.5 ml .ONCE ONE Administration Procedures Laceration Laceration 1: Site: scalp Size (cm): 2.5 Description: linear Depth: simple, single layer Pre-repair: wound explored and irrigated extensively Number of sutures: 6 (jomar- placed by MAXIMINO Fung) Medical Decision Making Medical Decision Making MDM Narrative: 68-year-old male with a past medical history anemia, HTN, GERD, HLD, presenting to the ED complaining of headache, scalp laceration, neck pain, and left shoulder pain s/p mechanical slip and fall on ice 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 On exam vital signs stable, NAD, nontoxic appearing, physical exam as noted above with laceration to posterior scalp, left clavicular, and bilateral trapezius/MSK neck tenderness to palpation. No midline spinous tenderness or red flag symptoms. Concern for ICH vs fractures vs muscle spasming/strain. Plan: Head/C-spine CT, x-ray, repair wound, update tetanus Please refer to course for remaining clinical decision making, interpretation of labs/imaging results, and discussions with consultants and/or family members. Differential Diagnosis Differential Diagnoses: The differential diagnosis associated with the presentation includes As above Admission/Observation Consideration of admission/observation: Escalation of care including admission/observation considered Lab Data [facility] Lab Attestation statement: I reviewed the patient's lab results. 07/18/23 13:40 07/18/23 13:40 Labs: Lab Results 07/18/23 Range/Units 13:40 WBC 7.0 (4.8-10.8) X10*3/uL RBC 4.07 L (4.60-5.80) X10*6/uL Hgb 12.9 L (14.0-18.0) g/dl Hct 37.7 L (42.0-52.0) % MCV 92.6 (80.0-98.0) fL MCH 31.7 (27.0-33.0) pg MCHC 34.2 (31.0-36.0) g/dl RDW 13.7 (11.0-16.0) % Plt Count 256 (160-400) X10*3/uL MPV 9.4 (9.4-12.4) fL Immature Gran % (Auto) 0.3 (0.0-0.4) % Neut % (Auto) 74.3 H (45-73) % Lymph % (Auto) 17.8 L (20-40) % Douglas % (Auto) 4.7 (2-11) % Eos % (Auto) 2.6 (0-4) % Baso % (Auto) 0.3 (0-2) % Lymph # (Auto) 1.3 (1.2-4.9) X10*3/uL Douglas # (Auto) 0.3 (0.1-1.2) X10*3/uL Eos # (Auto) 0.2 (0.0-0.4) X10*3/uL Baso # (Auto) 0.0 (0.0-0.2) X10*3/uL Abs Immat Gran (auto) 0.02 (0.00-0.03) X10*3/uL Absolute Neuts (auto) 5.2 (2.0-8.3) x10*3/uL Absolute Nucleated RBC 0.000 (0.0-0.012) X10*3/uL Nucleated RBC % (auto) 0.0 (0.0-0.2) /100WBC Independent Interpretation I performed an independent interpretation of an: Plain X-Ray and CT Scan Radiology Impression Discussion of test interpretation with radiology: I have reviewed the radiologist's reading. External Record Review External record reviewed: Inpatient record, Office record, Outpatient record, Prior outpatient labs, Prior outpatient radiology, Primary care record and Outside ED record Tests considered The following testing was considered but not selected: As above Prescription Management I considered prescription management with: Pain Medication Chronic Conditions Patient?s care impacted by: Hypertension Critical Care Time Critical Care Time Critical Care Time: Yes Total Critical Care Time: 45 Attestation: I have personally provided critical care time exclusive of time spent on separately billable procedures. Time includes review of lab data, radiology results, discussion with consultants, and monitoring for potential decompensation. Intervention performed as documented. Discharge Plan Discharge Clinical Impression: Intraparenchymal hemorrhage of brain, Fall Patient Disposition: [facility] Transfer Details: [facility] ED to ED, accepting Dr. Bolanos Prescriptions: No Action fluticasone propionate 50 mcg/actuation spray,suspension 1 spray intranasal DAILY Qty: 16 4RF acetaminophen [Arthritis Pain Relief (acetam)] 650 mg tablet extended release 650 mg PO Q8H 30 Days Qty: 90 2RF lisinopril 20 mg tablet 20 mg PO DAILY Qty: 90 2RF lovastatin 40 mg tablet 40 mg PO DAILY Qty: 90 2RF fluoxetine 40 mg capsule 40 mg PO QAM 90 Days Qty: 90 2RF multivitamin Tablet 1 tab PO DAILY nystatin 100,000 unit/gram powder 1 appl topical DAILY 30 Days Qty: 60 0RF mupirocin 2 % ointment 1 appl topical BID 15 Days Qty: 22 0RF
--- NOTE | 2023-07-18 12:09 | PC.NURSE ---
this nurse attempted to round on pt s/p stapling. this nurse was asked to return later as patient is on a business call . pt speaking in full complete sentances, no acute distress noted
[2023-07-18] MEDS: Diphth,Pertus(ACell),Tet Adult 0.5 ML SYRINGE IM (13:21)
--- NOTE | 2023-07-18 13:24 | PC.NURSE ---
pt medicated per ANUPAM- TdaP updated in left deltoid, VIS provided
[2023-07-18 13:44] VITALS: BP 174/91; PULSE 64; RESP 16; O2SAT 99
[2023-07-18 13:45] LABS: MANUAL DIFF FLAG NO
[2023-07-18 13:47] LABS: Basophils Percent Auto 0.3 % (0-2); Eosinophils Absolute Auto 0.2 X10*3/uL (0.0-0.4); Eosinophils Percent Auto 2.6 % (0-4); Hematocrit 37.7 % (42.0-52.0); Hemoglobin 12.9 g/dl (14.0-18.0); Imm Gran Abs Auto 0.02 X10*3/uL (0.00-0.03); Imm Gran Pct Auto 0.3 % (0.0-0.4); Lymphocytes Absolute Auto 1.3 X10*3/uL (1.2-4.9); Lymphocytes Percent Auto 17.8 % (20-40); Mean Corpuscular HGB Conc 34.2 g/dl (31.0-36.0); Mean Corpuscular Hemoglobin 31.7 pg (27.0-33.0); Mean Corpuscular Volume 92.6 fL (80.0-98.0); Mean Platelet Volume 9.4 fL (9.4-12.4); Monocytes Absolute Auto 0.3 X10*3/uL (0.1-1.2); Monocytes Percent Auto 4.7 % (2-11); Neutrophils Absolute Auto 5.2 x10*3/uL (2.0-8.3); Neutrophils Percent Auto 74.3 % (45-73); Platelet Count 256 X10*3/uL (160-400); Red Blood Count 4.07 X10*6/uL (4.60-5.80); Red Cell Distribution Width 13.7 % (11.0-16.0)
[2023-07-18 13:59] LABS: INTERNATIONAL NORM RATIO 0.9 (0.9-1.1); Prothrombin Time 11.1 SEC (11.1-13.3)
--- NOTE | 2023-07-18 13:59 | PC.NURSE ---
Per radiology, pt CT findings were as follows: Focal low density lesion measuring 0.9 x 0.7 cm in size is seen in left upper anterior frontal deep white matter at the superior border of left lateral ventricle. A high attenuation lesion is seen at lateral posterior left internal capsule posterior limb, measuring 0.5 cm in AP diameter, 0.8 cm in width, 0.7 cm in vertical height IV access obtained w/ 20G IV in right lateral AC= basic labs collected. pt was accepted to [facility] for trauma consult by MD Bolanos. Pt to be transferred via [facility] for further eval and tx. Pt agrees and understands plan. Transfer conscent signed
[2023-07-18 14:01] LABS: Alanine Aminotransferase 17 U/L (0-40); Albumin Level 4.7 g/dL (3.5-5.0); Alkaline Phosphatase 55 U/L (39-117); Anion Gap 12 (12-20); Aspartate Amino Transferase 20 U/L (5-37); Bilirubin Direct 0.1 mg/dL (0.0-0.5); Bilirubin Total 0.4 mg/dL (0.0-1.0); Blood Urea Nitrogen 18 mg/dL (9-16); Calcium 10.5 mg/dL (8.4-10.2); Carbon Dioxide 27 mmol/L (22-29); Chloride 105 mmol/L (96-108); Creatinine Clr Calc Pharmacy 90.4; Estimated Glomerular Filt Rate > 60; Glucose Random 90 mg/dL (60-115); Potassium 3.9 mmol/L (3.3-5.1); Sodium 140 mmol/L (135-145); Total Protein 7.8 g/dL (6.5-8.0)
[2023-07-18 14:02] LABS: Partial Thromboplastin Time 32.7 SEC (26.0-36.4)
--- NOTE | 2023-07-18 14:18 | PC.NURSE ---
nurse to nurse report called to [facility] ED, MOUNIKA Celeste
--- NOTE | 2023-07-18 14:19 | PC.NURSE ---
call placed to [facility] for transfer [phone] call received from [facility] accepting transfer [phone]
== END 2023-07-18 15:01 | disposition short-term general hospital (02) ==
PROVIDERS: Physician Assistant; Emergency Provider Emergency Medicine; PCP Physician Assistant
DX: S01.01XA Laceration without foreign body of scalp, initial encounter (principal); R51.9 Headache, unspecified; M25.512 Pain in left shoulder; M54.2 Cervicalgia; I10 Essential (primary) hypertension; W00.0XXA Fall on same level due to ice and snow, initial encounter; Y93.9 Activity, unspecified; Y92.9 Unspecified place or not applicable; Y99.8 Other external cause status; Z79.899 Other long term (current) drug therapy; Z23 Encounter for immunization
CPT/HCPCS: 12031; 36415; 70450; 72125; 73000; 80048; 80076; 85025; 85610; 85730; 90471; 90715; 96372; 99285

== ENCOUNTER 2023-07-30 10:22 | Outpatient (REF) | payer MEDICARE, SELFPAY ==
[2023-07-30 10:50] LABS: Hematocrit 37.2 % (42.0-52.0); Hemoglobin 12.2 g/dl (14.0-18.0); Mean Corpuscular HGB Conc 32.8 g/dl (31.0-36.0); Mean Corpuscular Hemoglobin 30.3 pg (27.0-33.0); Mean Corpuscular Volume 92.5 fL (80.0-98.0); Platelet Count 263 X10*3/uL (160-400); Red Blood Count 4.02 X10*6/uL (4.60-5.80); Red Cell Distribution Width 13.5 % (11.0-16.0); White Blood Count 5.3 X10*3/uL (4.8-10.8)
[2023-07-30 11:16] LABS: Alanine Aminotransferase 12 U/L (0-40); Albumin Level 4.2 g/dL (3.5-5.0); Alkaline Phosphatase 53 U/L (39-117); Anion Gap 10 (12-20); Aspartate Amino Transferase 16 U/L (5-37); Bilirubin Total 0.4 mg/dL (0.0-1.0); Blood Urea Nitrogen 16 mg/dL (9-16); Calcium 9.3 mg/dL (8.4-10.2); Carbon Dioxide 26 mmol/L (22-29); Chloride 108 mmol/L (96-108); Cholesterol 225 mg/dL (<200); Estimated Glomerular Filt Rate > 60; Glucose Fasting 98 mg/dL (60-99); HDL Cholesterol 46 mg/dL (>40); Iron 94 mcg/dL (45-160); LDL Cholesterol Calculated 154 mg/dL (<100); Percent Iron Saturation 35 % (15-50); Potassium 4.4 mmol/L (3.3-5.1); Sodium 140 mmol/L (135-145); Total Iron Binding Capacity 268 mcg/dL (228-428); Total Protein 7.1 g/dL (6.5-8.0); Triglycerides 129 mg/dL (<150); Unsaturated Iron Binding 174 ug/dL
[2023-07-30 11:47] LABS: Folate 14.2 ng/mL (> or = 4.0); Vitamin B12 448 pg/mL (200-900)
[2023-07-30 12:42] LABS: Creatinine Urine 129.02 mg/dL; Microalbum/Creatinine Ratio Ur 6.2 ug/mg cr (<30)
== END 2023-07-30 10:23 | disposition home or self-care (01) ==
LOC: HO.LAB 10:22
PROVIDERS: PCP Physician Assistant; Visit Provider Physician Assistant
DX: D50.9 Iron deficiency anemia, unspecified (principal); D64.89 Other specified anemias; I10 Essential (primary) hypertension; E78.00 Pure hypercholesterolemia, unspecified; E53.8 Deficiency of other specified B group vitamins
CPT/HCPCS: 36415; 80053; 80061; 82043; 82570; 82607; 82746; 83540; 85027

== ENCOUNTER 2023-08-07 15:34 | Outpatient (AMB) | payer MEDICARE, SELFPAY ==
[2023-08-07 15:40] VITALS: PULSE 67; O2SAT 95
--- NOTE | 2023-08-07 15:40 | A.OFFPC_ITS ---
Vital Signs 08/07/23 15:40 Height 5 ft 9 in Weight 203 lb BMI 30.0 Blood Pressure Location Lt brachial Position Sitting Pulse 67 Pulse Source Pulse Oximeter Pulse Oximetry (%) 95 Oxygen Delivery Method Room Air Intake Visit Reasons: f/u HTN/ HLD Intake Note: The patient is here for a follow-up on hypertension and removal of jomar from the back of the head. Survey Project Manager Required: No Accompanied by: Self / Same As Patient Allergies No Known Allergies Allergy (Verified 08/07/23 15:57) Medication List - Last Reconciled 08/07/23 by Carl Stubbs PA-C acetaminophen ER (Arthritis Pain Relief (acetaminophen) ER) 650 mg PO Q8H 30 days diclofenac sodium ER 100 mg PO DAILY fluticasone propionate 50 mcg/actuation 1 spray intranasal DAILY lisinopril 20 mg PO DAILY lovastatin 40 mg PO DAILY multivitamin 1 tab PO DAILY mupirocin 2% 1 appl topical BID 15 days nystatin 1 appl topical DAILY 30 days Tobacco use date assessed: 08/07/23 Fall risk assessment: No Falls in past year Last assessed Fall Risk: 08/07/23 Dental Screening Dental Screen Date: 08/07/23 Did you have a dental visit in the last 12 months?: Yes Did you have a dental problem in the last 6 months where you did not have access to dental care?: No Was dental information given to patient?: Patient has dentist HPI f/u HTN/ HLD HPI Details Cholo is a 60-year-old male here today for follow-up visit,.? Pmhx significant for HLD, HTN, Anxiety, Micoscopic hematuria, BPH, recovering addict. Recently seen at the ER for acute head injury, CT head showing small small intraparenchymal hemorrhage and was transferred to tertiary facility. No intervention was needed patient discharge without any new medication. He currently feels well without any major headaches, dizziness or disorientation. . Status post right hip total replacement: Has establish care with new orthopedic surgeon. Repeat x-ray shows no hardware malalignment. Was started on diclofenac 100 mg for his hip pain which has worked wonderfully. .. ? .. ? HLD: Has been stable with Statin therapy, lipid panel slightly more elevated than previous, patient believes this is diet related. . Patient reports diet has been the same and would like to continue following the lipid panel. .. Normocytic anemia:? Has been anemic for many years now though has worsened since his total hip replacement.? Iron studies normal. ? Otherwise patient without any signs and symptoms of anemia such as dizziness, cold intolerance, bruising.? Will continue to follow. ? .. ? HTN: No headaches or CP reported .? Pressures have been stable with lisinopril 20 mg.. ? .. ? Anxiety: He discontinued himself off of fluoxetine and feels fine. 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 Laboratory Tests 07/30/23 07/30/23 07/30/23 10:36 10:38 10:38 RBC 4.02 L Hgb 12.2 L Iron 94 Cholesterol 225 H LDL Cholesterol, C alc 154 H Vitamin B12 448 Urine Microalbumin 8.0 PFSH Medical History History of depression History of anxiety Primary localized osteoarthritis of right hip History of cataract HLD (hyperlipidemia) HTN (hypertension) Surgical History History of cataract surgery History of colonoscopy Family History Father Renal cancer Mental health disorder Mother Alzheimers disease Sister Endometrial cancer Social History Household Members: None Housing: House Are you a primary patient care associate to a significant other at home: No Do you presently have visiting nurse or other home services: No Alcohol intake: never Comment: advised to move rugs Patient Tobacco Use Status: Never used Tobacco e-Cigarette/Vaping Use: Never Used Second Hand Smoke Exposure: No service: No Current occupational status: disabled 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 1. Little interest or pleasure in doing things: not at all 2. Feeling down, depressed, or hopeless: not at all 3. Trouble falling or staying asleep, or sleeping too much: not at all 4. Feeling tired or having little energy: not at all 5. Poor appetite or overeating: not at all 6. Feeling bad about yourself - or that you are a failure or have let yourself or your family down: not at all 7. Trouble concentrating on things, such as reading the newspaper or watching television: not at all 8. Moving or speaking so slowly that other people could have noticed. Or the opposite - being so fidgety or restless that you have been moving around a lot more than usual: not at all 9. Thoughts that you would be better off or of hurting yourself in some way: not at all Total score: 0 Depression Screening Interpretation: Negative Depression Screening Done: Yes 30811 - PHQ-9 Billing: Yes Source: Developed by Drs. Nestor Michelle, Leslye Almazan, Michael Fry and colleagues, with an educational samanta from [employer]. Thrive Questionnaire Date Thrive assessed: 08/07/23 I am a: Patient What is your living situation today?: I have a steady place to live Within the past 12 months, did the food you bought not last and you didn't have the money to get more?: Never true Within the past 12 months, did you worry whether your food would run out before you got money to buy more?: Never true Do you have trouble paying for medicines?: No Do you have trouble getting transportation to medical appointments?: No Do you have trouble paying your heating and electricity bill?: No Do you have trouble taking care of your child, family member or friend?: No Do you have trouble with day-to-day activities such as bathing, preparing meals, shopping, managing finances, etc.?: No Are you currently unemployed and looking for a job?: No Are you interested in more education?: No Please select the resources that you would like help with: None Currently or been in a relationship where the following occur: no concerns reported THRIVE Score: 0 AUDIT C Alcohol Use Questionnaire (AUDIT-C) 1. How often do you have a drink containing alcohol?: Never 3. How often do you have six or more drinks on one occasion?: Never Total Score: 0 VANNA-7 AMB Questionnaire VANNA-7 Date VANNA - 7 assessed: 08/07/23 Feeling nervous, anxious, or on edge: 0 = Not at all Not being able to stop or control worryin = Not at all Worrying too much about different things: 0 = Not at all Trouble relaxin = Not at all Being so restless that it is hard to sit still: 0 = Not at all Becoming easily annoyed or irritable: 0 = Not at all Feeling afraid as if something awful might happen: 0 = Not at all Total VANNA-7 score (0-4 normal; 5-9 mild; 10-14 moderate; 15-21 severe): 0 Source: Developed by Drs. Nestor Michelle, Leslye Almazan, Michael Fry and colleagues, with an educational samanta from [employer]. VANNA-7 Assessment Billing VANNA-7 Assessment Tool: VANNA-7 Assessment 71763 Review of Systems Const Denies headache(s) Eyes Denies loss of vision ENT Denies vertigo, Denies dizziness, Denies headache(s) and Denies sore throat Card Denies chest pain, Denies leg edema and Denies lightheadedness Resp Denies cough, Denies hemoptysis and Denies wheezing GI Denies abdominal pain, Denies melena, Denies constipation, Denies diarrhea and Denies vomiting Denies dysuria, Denies urinary frequency and Denies urinary urgency Musc Denies arthralgias, Denies joint swelling, Denies numbness and Denies tingling Neuro Denies Abnormal speech present, Denies behavioral changes, Denies vertigo, Denies dizziness, Denies headache(s), Denies loss of vision, Denies memory loss, Denies numbness and Denies tingling Psych Denies anxiety, Denies behavioral changes, Denies depression, Denies memory loss and Denies panic attacks Rickey/Lymph Denies easy bleeding and Denies easy bruising Aller/Immun Denies wheezing Physical exam (Primary Care) Vital Signs: Last Vital Signs Pulse 67 08/07/23 15:40 Pulse Ox 95 08/07/23 15:40 Oxygen Delivery Method Room Air 08/07/23 15:40 BMI result Body Mass Index 30.0 BMI Assessment/Plan discussion: High Tobacco/Smoking Status: Tobacco use Status Tobacco use date assessed 08/07/23 08/07/23 15:51 Patient Tobacco Use Status Never used Tobacco 08/07/23 15:40 e-Cigarette/Vaping Use Never Used 08/07/23 15:40 PHQ-9: PHQ-9 Score PHQ-9: Total score 0 08/07/23 15:58 Depression Screening Interpretation: Negative Thrive Assessment: Date of Thrive Assessment Date Thrive assessed 08/07/23 08/07/23 15:51 Currently or been in a relationship where the following occur: no concerns reported Const General: healthy appearing, no acute distress, alert and awake Nutritional Appearance: well nourished Orientation/consciousness: oriented to person, oriented to place and oriented to time HENMT Ears: TM's normal bilaterally General nose exam: Normal nasal mucous membranes and turbinates present Eyes Conjunctivae: conjunctivae normal Sclerae: sclerae normal Pupils: Equal, round and reactive pupils present Neck Neck: Yes no lymphadenopathy and Yes no JVD Thyroid: Thyroid normal Carotids: no bruits Resp Effort & Inspection: normal respiratory effort and not tachypneic Auscultation: no crackles, no rales, no rhonchi and no wheezes Cardio Rate: regular rate Rhythm: regular rhythm Heart sounds: no murmurs and normal S1 and S2 GI Palpation (GI): Soft to palpation, nontender, no hepatomegaly and no splenomegaly Auscultation: normal bowel sounds Skin General skin exam: no rashes or lesions noted and dry skin Neuro General: oriented to person, oriented to place and oriented to time Cranial nerves: Yes Equal, round and reactive pupils present Speech: No Abnormal speech present Gait exam (Neuro): Normal gait present Motor exam (neuro): no tremor noted Extrem Right upper extremity: full ROM Left upper extremity: full ROM Right lower extremity: full ROM; no edema Left lower extremity: full ROM; no edema Psych Mental Status: mental status grossly normal Speech and movement: Normal speech and movement present Affect: normal affect Attitude: cooperative Thought process: Normal thought process present Assessment and Plan Assessment & Plan (1) HTN (hypertension): Code(s): I10 - Essential (primary) hypertension Qualifiers: Hypertension type: primary hypertension Qualified Code(s): I10 - Essential (primary) hypertension Plan: Patient's blood pressure acceptable today in office. Continue his current dose of lisinopril with goal blood pressure be below 140/90 (2) HLD (hyperlipidemia): Code(s): E78.5 - Hyperlipidemia, unspecified Qualifiers: Hyperlipidemia type: pure hypercholesterolemia Qualified Code(s): E78.00 - Pure hypercholesterolemia, unspecified Plan: Patient's fasting lipid panel shows borderline high total cholesterol, he does report some dietary indiscretion. continues on statin therapy. Goal LDL to remain below 130. (3) BPH (benign prostatic hyperplasia): Code(s): N40.0 - Benign prostatic hyperplasia without lower urinary tract symptoms Qualifiers: Lower urinary tract symptom presence: symptoms absent Qualified Code(s): N40.0 - Benign prostatic hyperplasia without lower urinary tract symptoms Plan: Patient continues to follow urology for his benign prostatic hypertrophy. He denies any urinary symptoms. Most recent PSA (4) Obese: Code(s): E66.9 - Obesity, unspecified Qualifiers: Body mass index: BMI 33.0-33.9 Obesity classification: adult class 1 (BMI 30 - 34.9) Obesity type: due to excess calories Serious obesity comorbidity presence: without serious comorbidity Qualified Code(s): E66.09 - Other obesity due to excess calories; Z68.33 - Body mass index [BMI] 33.0-33.9, adult Plan: Patient does understand his BMI is over 30 will continue working on being more physically active and adapting to better eating habits to reduce his weight (5) Anemia: Code(s): D64.9 - Anemia, unspecified Qualifiers: Anemia type: other cause Other causes of anemia: other cause, not classified Qualified Code(s): D64.89 - Other specified anemias Plan: Patient continues to have a stable anemia for the last several years. Likely anemia of chronic disease due to normal MCV. Otherwise asymptomatic without any bleeding bruising, fatigue . (6) Primary localized osteoarthritis of right hip: Code(s): M16.11 - Unilateral primary osteoarthritis, right hip Plan: Patient reports he does have continued hip pain from time to time attributes this to being more sedentary. He feels he needs to be more physically active. He has followed up with his orthopedic surgeon and whom recommends him being more physically active as well and was started on diclofenac 100 mg which has worked wonderfully on reducing his pain completely. He does use Tylenol which does take away his pain. (7) VANNA (generalized anxiety disorder): Code(s): F41.1 - Generalized anxiety disorder Plan: HAs stopped his SSRI , he reports he feels fine from a mental health point of view. Orders: Orders Prostate Specific Antigen Scr 08/07/23 N40.0 - Benign prostatic hyperplasia without lower urinary tract symptoms, Z12.5 - Encounter for screening for malignant neoplasm of prostate Comprehensive [place]. Panel Fast 08/07/23 I10 - Essential (primary) hypertension Lipid Panel 08/07/23 E78.00 - Pure hypercholesterolemia, unspecified Complete Blood Count no Diff 08/07/23 I10 - Essential (primary) hypertension Coding Level of Care Code Est Pt Level 4 (37602) Diagnoses Primary hypertension I10 Hypertension type: primary hypertension Pure hypercholesterolemia E78.00 Hyperlipidemia type: pure hypercholesterolemia Benign prostatic hyperplasia without lower urinary tract symptoms N40.0 Lower urinary tract symptom presence: symptoms absent Class 1 obesity due to excess calories without serious comorbidity with body mass index (BMI) of 33.0 to 33.9 in adult E66.09; Z68.33 Body mass index: BMI 33.0-33.9 Obesity classification: adult class 1 (BMI 30 - 34.9) Obesity type: due to excess calories Serious obesity comorbidity presence: without serious comorbidity Anemia due to other cause, not classified D64.89 Anemia type: other cause Other causes of anemia: other cause, not classified Primary localized osteoarthritis of right hip M16.11 VANNA (generalized anxiety disorder) F41.1 Additional Codes VANNA-7 Assessment Billing - VANNA-7 Assessment Tool: VANNA-7 Assessment 70098 ([id number])
== END 2023-08-07 16:25 | disposition home or self-care (01) ==
PROVIDERS: PCP Physician Assistant; Visit Provider Physician Assistant
DX: I10 Essential (primary) hypertension (principal); E78.00 Pure hypercholesterolemia, unspecified; E66.09 Other obesity due to excess calories; Z68.33 Body mass index [BMI] 33.0-33.9, adult; N40.0 Benign prostatic hyperplasia without lower urinary tract symptoms; D64.89 Other specified anemias; M16.11 Unilateral primary osteoarthritis, right hip; F41.1 Generalized anxiety disorder
CPT/HCPCS: 99214

== ENCOUNTER 2023-11-05 11:43 | Outpatient (AMB) | payer MEDICARE, SELFPAY ==
--- NOTE | 2023-11-05 11:46 | MHC.PC.OV ---
Vital Signs 11/05/23 11:50 Height 5 ft 9 in Weight 204 lb 6 oz BMI 30.2 BP 108/72 Blood Pressure Location Lt brachial Position Sitting Pulse 80 Pulse Source Pulse Oximeter Pulse Oximetry (%) 96 Oxygen Delivery Method Room Air Intake Visit Reasons: lump has developed at the back of the head Intake Note: The patient has presented with clusters of small, itchy, red bumps that have developed on the back of their head. Inspector Subassemblies Required: No Accompanied by: Self / Same As Patient Allergies No Known Allergies Allergy (Verified 08/07/23 15:57) Tobacco use date assessed: 08/07/23 Dental Screening Dental Screen Date: 08/07/23 HPI lump has developed at the back of the head HPI Details Patient is a 68-year-old male here today for problem visit. He has noted a skin lesion on the back of his head that intermittently is itchy. He reports this skin lesion is roughened texture and even his chase has told him get this checked out. He denies using any creams on the lesion. [facility] Medical History History of depression History of anxiety Primary localized osteoarthritis of right hip History of cataract HLD (hyperlipidemia) HTN (hypertension) Surgical History History of cataract surgery History of colonoscopy Family History Father Renal cancer Mental health disorder Mother Alzheimers disease Sister Endometrial cancer Social History Household Members: None Housing: House Are you a primary medicare sales representative to a significant other at home: No Do you presently have visiting nurse or other home services: No Alcohol intake: never Comment: advised to move rugs Patient Tobacco Use Status: Never used Tobacco e-Cigarette/Vaping Use: Never Used Second Hand Smoke Exposure: No service: No Current occupational status: disabled 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 Nestor Michelle, Leslye Almazan, Michael Fry and colleagues, with an educational samanta from [employer]. Review of Systems Const Denies headache(s) Eyes Denies loss of vision ENT Denies vertigo, Denies dizziness, Denies headache(s) and Denies sore throat Card Denies chest pain, Denies leg edema and Denies lightheadedness Resp Denies cough, Denies hemoptysis and Denies wheezing GI Denies abdominal pain, Denies melena, Denies constipation, Denies diarrhea and Denies vomiting Denies dysuria, Denies urinary frequency and Denies urinary urgency Musc Denies arthralgias, Denies joint swelling, Denies numbness and Denies tingling Neuro Denies Abnormal speech present, Denies behavioral changes, Denies vertigo, Denies dizziness, Denies headache(s), Denies loss of vision, Denies memory loss, Denies numbness and Denies tingling Psych Denies anxiety, Denies behavioral changes, Denies depression, Denies memory loss and Denies panic attacks Rickey/Lymph Denies easy bleeding and Denies easy bruising Aller/Immun Denies wheezing Physical exam (Primary Care) Vital Signs: Last Vital Signs Pulse 80 11/05/23 11:50 BP 108/72 11/05/23 11:50 Pulse Ox 96 11/05/23 11:50 Oxygen Delivery Method Room Air 11/05/23 11:50 BMI result Body Mass Index 30.2 Tobacco/Smoking Status: Tobacco use Status Tobacco use date assessed 08/07/23 11/05/23 11:48 Patient Tobacco Use Status Never used Tobacco 11/05/23 11:48 e-Cigarette/Vaping Use Never Used 11/05/23 11:48 Thrive Assessment: Date of Thrive Assessment Date Thrive assessed 08/07/23 11/05/23 11:48 Const General: healthy appearing, no acute distress, alert and awake Nutritional Appearance: well nourished Orientation/consciousness: oriented to person, oriented to place and oriented to time [facility] Head images: 1. RAISED ROUGH TEXTURED ROUND SKIN LESION IN THE POSTERIOR ASPECT OF THE SCALP. Ears: TM's normal bilaterally General nose exam: Normal nasal mucous membranes and turbinates present Eyes Conjunctivae: conjunctivae normal Sclerae: sclerae normal Pupils: Equal, round and reactive pupils present Neck Neck: Yes no lymphadenopathy and Yes no JVD Thyroid: Thyroid normal Carotids: no bruits Resp Effort & Inspection: normal respiratory effort and not tachypneic Auscultation: no crackles, no rales, no rhonchi and no wheezes Cardio Rate: regular rate Rhythm: regular rhythm Heart sounds: no murmurs and normal S1 and S2 GI Palpation (GI): Soft to palpation, nontender, no hepatomegaly and no splenomegaly Auscultation: normal bowel sounds Skin General skin exam: no rashes or lesions noted and dry skin Neuro General: oriented to person, oriented to place and oriented to time Cranial nerves: Yes Equal, round and reactive pupils present Speech: No Abnormal speech present Gait exam (Neuro): Normal gait present Motor exam (neuro): no tremor noted Extrem Right upper extremity: full ROM Left upper extremity: full ROM Right lower extremity: full ROM; no edema Left lower extremity: full ROM; no edema Psych Mental Status: mental status grossly normal Speech and movement: Normal speech and movement present Affect: normal affect Attitude: cooperative Thought process: Normal thought process present Assessment and Plan Assessment & Plan (1) Actinic keratosis: Code(s): L57.0 - Actinic keratosis Plan: Patient's skin manifestation most consistent with an actinic keratosis. Will supply patient with topical treatment to use for the next 2 months if no change will consider Dermatology evaluation and removal. Medications: New fluorouracil 0.5% 1 appl topical BEDTIME 30 grams 1RF 4 weeks L57.0 - Actinic keratosis Coding Level of Care Code Est Pt Level 3 (04596) Diagnoses Actinic keratosis L57.0
[2023-11-05 11:50] VITALS: BP 108/72; PULSE 80; O2SAT 96; BMI 30.2
== END 2023-11-05 13:39 | disposition home or self-care (01) ==
PROVIDERS: PCP Physician Assistant; Visit Provider Physician Assistant
DX: L57.0 Actinic keratosis (principal)
CPT/HCPCS: 99213

== ENCOUNTER 2023-12-24 09:34 | Outpatient (REF) | payer MEDICARE, SELFPAY ==
[2023-12-24 10:36] LABS: Hematocrit 34.8 % (42.0-52.0); Hemoglobin 11.4 g/dl (14.0-18.0); Mean Corpuscular HGB Conc 32.8 g/dl (31.0-36.0); Mean Corpuscular Hemoglobin 30.5 pg (27.0-33.0); Mean Platelet Volume 9.7 fL (9.4-12.4); Platelet Count 244 X10*3/uL (160-400); Red Blood Count 3.74 X10*6/uL (4.60-5.80); Red Cell Distribution Width 13.4 % (11.0-16.0); White Blood Count 4.5 X10*3/uL (4.8-10.8)
[2023-12-24 11:23] LABS: Alanine Aminotransferase 10 U/L (0-40); Albumin Level 4.2 g/dL (3.5-5.0); Alkaline Phosphatase 39 U/L (39-117); Anion Gap 12 (12-20); Aspartate Amino Transferase 16 U/L (5-37); Bilirubin Total 0.4 mg/dL (0.0-1.0); Blood Urea Nitrogen 23 mg/dL (9-16); Calcium 9.5 mg/dL (8.4-10.2); Carbon Dioxide 27 mmol/L (22-29); Chloride 108 mmol/L (96-108); Cholesterol 193 mg/dL (<200); Estimated Glomerular Filt Rate > 60; Glucose Fasting 100 mg/dL (60-99); HDL Cholesterol 42 mg/dL (>40); LDL Cholesterol Calculated 138 mg/dL (<100); Potassium 4.5 mmol/L (3.3-5.1); Sodium 142 mmol/L (135-145); Total Protein 6.8 g/dL (6.5-8.0); Triglycerides 68 mg/dL (<150)
[2023-12-24 11:48] LABS: Prostate Specific Antigen Scr 0.81 ng/mL (<0.05-4.0)
== END 2023-12-24 09:35 | disposition home or self-care (01) ==
LOC: HO.LAB 09:34
PROVIDERS: PCP Physician Assistant; Visit Provider Physician Assistant
DX: I10 Essential (primary) hypertension (principal); E78.00 Pure hypercholesterolemia, unspecified; N40.0 Benign prostatic hyperplasia without lower urinary tract symptoms; Z12.5 Encounter for screening for malignant neoplasm of prostate
CPT/HCPCS: 36415; 80053; 80061; 84153; 85027

== ENCOUNTER 2024-01-01 14:14 | Outpatient (AMB) | payer MEDICARE, SELFPAY ==
[2024-01-01 14:25] VITALS: BP 112/70; PULSE 70; O2SAT 98; BMI 29.4
--- NOTE | 2024-01-01 14:25 | MHC.PC.OV ---
Vital Signs 01/01/24 14:25 Height 5 ft 9 in Weight 199 lb 4 oz BMI 29.4 BP 112/70 Blood Pressure Location Lt brachial Position Sitting Pulse 70 Pulse Source Pulse Oximeter Pulse Oximetry (%) 98 Oxygen Delivery Method Room Air Intake Visit Reasons: PE Intake Note: Patient is here today for a physical. Industrial Relations Director Required: No Accompanied by: Self / Same As Patient Allergies No Known Allergies Allergy (Verified 01/01/24 14:31) Medication List - Last Reconciled 01/01/24 by Carl Stubbs PA-C acetaminophen ER (Arthritis Pain Relief (acetaminophen) ER) 650 mg PO Q8H 30 days diclofenac sodium ER 100 mg PO DAILY PRN 30 days fluorouracil 0.5% 1 appl topical BEDTIME 4 weeks fluticasone propionate 50 mcg/actuation 1 spray intranasal DAILY lisinopril 20 mg PO DAILY lovastatin 40 mg PO DAILY multivitamin 1 tab PO DAILY mupirocin 2% 1 appl topical BID 15 days nystatin 1 appl topical DAILY 30 days Tobacco use date assessed: 08/07/23 Fall risk assessment: No Falls in past year Last assessed Fall Risk: 01/01/24 Dental Screening Dental Screen Date: 08/07/23 HPI PE HPI Details Patient is a 68-year-old male here today for routine annual physical. ? Pmhx significant for HLD, HTN, Anxiety, Micoscopic hematuria, BPH, recovering addict, status post right hip replacement complicated by bursitis .. ? .. ? HLD: Has been stable with Statin therapy, lipid panel slightly more elevated than previous, patient believes this is diet related. . Patient reports diet has been the same and would like to continue following the lipid panel. .. Normocytic anemia:? Has been anemic for many years now though has worsened since his total hip replacement.? Iron studies normal. ? Otherwise patient without any signs and symptoms of anemia such as dizziness, cold intolerance, bruising.? Will continue to follow. ? .. ? HTN: No headaches or CP reported .? Pressures have been stable with lisinopril 20 mg.. ? .. ? Anxiety: He reports his anxiety has been stable. He is been off of SSRI therapy for quite some time. 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 vaccines:? up-to-date with COVID, flu, pneumonia, tetanus and shingles vaccines Colorectal cancer screening:? Up-to-date with colonoscopy- 2018 -normal repeat 10 years Laboratory Tests 07/30/23 12/24/23 10:36 09:55 RBC 3.74 L Hgb 11.4 L Creatinine 0.87 Fasting Glucose 100 H Cholesterol 193 LDL Cholesterol, C alc 138 H PSA Screen 0.81 Urine Microalbumin 8.0 PFSH Medical History History of depression History of anxiety Primary localized osteoarthritis of right hip History of cataract HLD (hyperlipidemia) HTN (hypertension) Surgical History History of cataract surgery History of colonoscopy Family History Father Renal cancer Mental health disorder Mother Alzheimers disease Sister Endometrial cancer Social History (Updated 01/01/24 @ 14:36 by Carl Stubbs PA-C) Household Members: None Housing: House Are you a primary progressive care manager to a significant other at home: No Do you presently have visiting nurse or other home services: No Alcohol intake: never Comment: advised to move rugs Patient Tobacco Use Status: Never used Tobacco e-Cigarette/Vaping Use: Never Used Second Hand Smoke Exposure: No service: No Current occupational status: employed and disabled 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 Nestor Michelle, Leslye Almazan, Michael Fry and colleagues, with an educational samanta from [employer]. Review of Systems Const Denies body aches, Denies chills, Denies excessive sweating, Denies fatigue, Denies fever(s) and Denies headache(s) Eyes Denies blurry vision ENT Denies dysphagia, Denies vertigo, Denies dizziness, Denies headache(s), Denies hearing loss and Denies tinnitus Card Denies chest pain, Denies chest pain with activity, Denies syncope, Denies irregular heart rhythm and Denies dyspnea Resp Denies chest congestion, Denies cough, Denies hemoptysis, Denies dyspnea and Denies wheezing GI Denies abdominal pain, Denies melena, Denies hematochezia, Denies coffee ground emesis, Denies dysphagia, Denies diarrhea, Denies nausea and Denies vomiting Denies difficulty urinating, Denies dysuria, Denies urinary frequency, Denies urinary hesitancy and Denies urinary urgency Musc Denies arthralgias, Denies limited range of motion, Denies muscle cramps and Denies muscle weakness Skin/Breast Denies rash and Denies skin ulcer Neuro Denies Abnormal speech present, Denies confusion, Denies vertigo, Denies dizziness, Denies syncope, Denies headache(s), Denies memory loss and Denies seizure-like activity Psych Denies anxiety, Denies confusion, Denies depression, Denies memory loss, Denies panic attacks and Denies paranoia Endo Denies excessive sweating, Denies fatigue, Denies flushing, Denies polydipsia and Denies polyuria Aller/Immun Denies wheezing Physical exam (Primary Care) Vital Signs: Last Vital Signs Pulse 70 01/01/24 14:25 BP 112/70 01/01/24 14:25 Pulse Ox 98 01/01/24 14:25 Oxygen Delivery Method Room Air 01/01/24 14:25 BMI result Body Mass Index 29.4 Tobacco/Smoking Status: Tobacco use Status Tobacco use date assessed 08/07/23 01/01/24 14:26 Patient Tobacco Use Status Never used Tobacco 01/01/24 14:26 e-Cigarette/Vaping Use Never Used 01/01/24 14:26 Thrive Assessment: Date of Thrive Assessment Date Thrive assessed 08/07/23 01/01/24 14:26 Const General: cooperative, comfortable, no acute distress, alert and awake; No confusion Orientation/consciousness: oriented to person, oriented to place, patient oriented x3 and No confusion HENMT Head: Yes normocephalic Ears: external ears normal and TM's normal bilaterally Face and sinus: No sinus tenderness Mouth: Normal oral and palatal mucosa present and tongue normal Teeth and gingiva: dentition normal and gingiva normal Throat: Yes posterior oropharynx normal, Yes tonsils normal and Yes uvula midline Eyes Conjunctivae: conjunctivae normal Sclerae: sclerae normal Pupils: Equal, round and reactive pupils present EOM: EOMs intact bilaterally Direct Ophthalmoscopy: No no photophobia Neck Neck: Yes no lymphadenopathy, No tender and Yes no JVD Thyroid: Thyroid normal Carotids: no bruits Chest Chest palpation & inspection: no tenderness Resp Effort & Inspection: normal respiratory effort, no audible wheezes, not labored and no stridor Auscultation: no crackles, no rales, no rhonchi and no wheezes Cardio Jugular venous distension: no JVD Rate: regular rate, not bradycardic and not tachycardic Rhythm: regular rhythm Bruits: no carotid bruits Peripheral pulses: Peripheral pulses 2+ throughout GI Inspection: Yes normal to inspection, No abdominal wall ecchymosis and No visible herniation Palpation (GI): Soft to palpation, nontender, no guarding, not rigid and No hepatosplenomegaly present Auscultation: normoactive bowel sounds General: Yes no CVA tenderness Back/Spine/Pelvis Back: no CVA tenderness and No back tenderness Cervical Spine: cervical ROM normal Thoracic/Lumbar Spine: thoracic and lumbar spine normal to inspection, straight leg raise negative bilaterally, No thoraco-lumbar ROM limited and No lumbar spinal tenderness Skin Lesions: no lesions Rashes: no rashes Wounds: no wounds Neuro General: oriented to person, oriented to place, patient oriented x3, CN's II-XI intact bilaterally and No confusion Cranial nerves: Yes Equal, round and reactive pupils present and Yes Normal accommodation reflex present Cognition (Neuro): normal cognition Speech: No Abnormal speech present Gait exam (Neuro): Normal gait present Motor exam (neuro): 5/5 motor strength present throughout Extrem Right upper extremity: full ROM; no cyanosis Left upper extremity: full ROM; no cyanosis Right lower extremity: no edema Left lower extremity: no edema Psych Appearance: grossly normal Mental Status: mental status grossly normal Affect: normal affect Attitude: cooperative Thought process: Normal thought process present Assessment and Plan Assessment & Plan (1) Annual physical exam: Code(s): Z00.00 - Encounter for general adult medical examination without abnormal findings (2) Actinic keratosis: Code(s): L57.0 - Actinic keratosis Plan: Has been using fluor cream which has been very effective on reducing his actinic keratoses. (3) HTN (hypertension): Code(s): I10 - Essential (primary) hypertension Qualifiers: Hypertension type: primary hypertension Qualified Code(s): I10 - Essential (primary) hypertension Plan: Patient's blood pressure acceptable today in office. Continue his current dose of lisinopril with goal blood pressure be below 140/90 (4) HLD (hyperlipidemia): Code(s): E78.5 - Hyperlipidemia, unspecified Qualifiers: Hyperlipidemia type: pure hypercholesterolemia Qualified Code(s): E78.00 - Pure hypercholesterolemia, unspecified Plan: Most recent fasting lipid panel showing improved total cholesterol and LDL. He continues on lovastatin 40 mg. . Goal LDL to remain below 130. (5) BPH (benign prostatic hyperplasia): Code(s): N40.0 - Benign prostatic hyperplasia without lower urinary tract symptoms Qualifiers: Lower urinary tract symptom presence: symptoms absent Qualified Code(s): N40.0 - Benign prostatic hyperplasia without lower urinary tract symptoms Plan: Patient continues to follow urology for his benign prostatic hypertrophy. He denies any urinary symptoms. Most recent PSA (6) Obese: Code(s): E66.9 - Obesity, unspecified Qualifiers: Obesity type: due to excess calories Obesity classification: adult class 1 (BMI 30 - 34.9) Serious obesity comorbidity presence: without serious comorbidity Body mass index: BMI 33.0-33.9 Qualified Code(s): E66.09 - Other obesity due to excess calories; Z68.33 - Body mass index [BMI] 33.0-33.9, adult Plan: Patient does understand his BMI is over 30 will continue working on being more physically active and adapting to better eating habits to reduce his weight (7) Anemia: Code(s): D64.9 - Anemia, unspecified Qualifiers: Anemia type: other cause Other causes of anemia: other cause, not classified Qualified Code(s): D64.89 - Other specified anemias Plan: Patient continues to have a stable anemia for the last several years. Likely anemia of chronic disease due to normal MCV. Otherwise asymptomatic without any bleeding bruising, fatigue . (8) VANNA (generalized anxiety disorder): Code(s): F41.1 - Generalized anxiety disorder Plan: Has been off of SSRI therapy for quite some time now., he reports he feels fine from a mental health point of view. Orders: Orders Microalbumin, Random (w Creat) Today I10 - Essential (primary) hypertension IRON PROFILE Today D50.9 - Iron deficiency anemia, unspecified, D64.89 - Other specified anemias Complete Blood Count no Diff Today D64.89 - Other specified anemias Lipid Panel Today E78.00 - Pure hypercholesterolemia, unspecified Patient Instructions: Goal: Blood pressure remain below 140/90, LDL to remain below 130 Barriers: Adherence to physical activity and healthy eating habits Coding Level of Care Code Est Pt Prev Care >65y(41117) Diagnoses Annual physical exam Z00.00 Actinic keratosis L57.0 Primary hypertension I10 Hypertension type: primary hypertension Pure hypercholesterolemia E78.00 Hyperlipidemia type: pure hypercholesterolemia Benign prostatic hyperplasia without lower urinary tract symptoms N40.0 Lower urinary tract symptom presence: symptoms absent Class 1 obesity due to excess calories without serious comorbidity with body mass index (BMI) of 33.0 to 33.9 in adult E66.09; Z68.33 Obesity type: due to excess calories Obesity classification: adult class 1 (BMI 30 - 34.9) Serious obesity comorbidity presence: without serious comorbidity Body mass index: BMI 33.0-33.9 Anemia due to other cause, not classified D64.89 Anemia type: other cause Other causes of anemia: other cause, not classified VANNA (generalized anxiety disorder) F41.1
== END 2024-01-01 15:02 | disposition home or self-care (01) ==
PROVIDERS: PCP Physician Assistant; Visit Provider Physician Assistant
DX: Z00.00 Encounter for general adult medical examination without abnormal findings (principal); L57.0 Actinic keratosis; I10 Essential (primary) hypertension; E78.00 Pure hypercholesterolemia, unspecified; N40.0 Benign prostatic hyperplasia without lower urinary tract symptoms; E66.09 Other obesity due to excess calories; Z68.33 Body mass index [BMI] 33.0-33.9, adult; D64.89 Other specified anemias; F41.1 Generalized anxiety disorder
CPT/HCPCS: 99397

== ENCOUNTER 2024-03-04 09:58 | Outpatient (AMB) | payer MEDICARE, SELFPAY ==
--- NOTE | 2024-03-04 09:55 | A.OFFPC_ITS ---
Intake Visit Reasons: Sleeping issues and weight Boat Washer Required: No Accompanied by: Self / Same As Patient Allergies No Known Allergies Allergy (Verified 03/04/24 10:15) Medication List - Last Reconciled 03/04/24 by Carl Stubbs PA-C acetaminophen ER (Arthritis Pain Relief (acetaminophen) ER) 650 mg PO Q8H 30 days diclofenac sodium ER 100 mg PO DAILY PRN 30 days fluorouracil 0.5% 1 appl topical BEDTIME 4 weeks fluticasone propionate 50 mcg/actuation 1 spray intranasal DAILY lisinopril 20 mg PO DAILY lovastatin 40 mg PO DAILY multivitamin 1 tab PO DAILY Tobacco use date assessed: 08/07/23 Dental Screening Dental Screen Date: 08/07/23 HPI Sleeping issues and weight HPI Details Patient is a 60-year-old male being evaluated today via telephone only. Over the last several weeks has been having some trouble sleeping to what he relates to a urinary issue and also a new issue with a contractor doing work on his house. He reports this is causing a lot of psychological distress which has been disrupting his sleep. He is currently in discussions to fix the issue.. Has been using [id number] sleeping aids which have been somewhat effective though is interested in trying a prescription medication. He is willing to try trazodone 25-50 mg before bed to help him sleep. [facility] Medical History History of depression History of anxiety Primary localized osteoarthritis of right hip History of cataract HLD (hyperlipidemia) HTN (hypertension) Surgical History History of cataract surgery History of colonoscopy Family History Father Renal cancer Mental health disorder Mother Alzheimers disease Sister Endometrial cancer Social History Household Members: None Housing: House Are you a primary reproductive healthcare assistant to a significant other at home: No Do you presently have visiting nurse or other home services: No Alcohol intake: never Comment: advised to move rugs Patient Tobacco Use Status: Never used Tobacco e-Cigarette/Vaping Use: Never Used Second Hand Smoke Exposure: No service: No Current occupational status: employed and disabled 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 Nestor Michelle, Leslye Almazan, Michael Fry and colleagues, with an educational samanta from [email or web address]. Review of Systems Const Denies headache(s) Eyes Denies loss of vision ENT Denies vertigo, Denies dizziness, Denies headache(s) and Denies sore throat Card Denies chest pain, Denies leg edema and Denies lightheadedness Resp Denies cough, Denies hemoptysis and Denies wheezing GI Denies abdominal pain, Denies melena, Denies constipation, Denies diarrhea and Denies vomiting Denies dysuria, Denies urinary frequency and Denies urinary urgency Musc Denies arthralgias, Denies joint swelling, Denies numbness and Denies tingling Neuro Denies behavioral changes, Denies vertigo, Denies dizziness, Denies headache(s), Denies loss of vision, Denies memory loss, Denies numbness and Denies tingling Psych Reports abnormal sleep pattern, Reports anxiety, Denies behavioral changes, Denies depression, Reports irritability, Denies memory loss and Denies panic attacks Rickey/Lymph Denies easy bleeding and Denies easy bruising Aller/Immun Denies wheezing Physical exam (Primary Care) Tobacco/Smoking Status: Tobacco use Status Tobacco use date assessed 08/07/23 03/04/24 09:57 Patient Tobacco Use Status Never used Tobacco 03/04/24 09:57 e-Cigarette/Vaping Use Never Used 03/04/24 09:57 Thrive Assessment: Date of Thrive Assessment Date Thrive assessed 08/07/23 03/04/24 09:57 Telehealth Telehealth Telehealth Platform: Telephone Location of provider rendering services: practice address Location of patient: address on file Patient Identification confirmed using: Name, : Yes Telehealth method: voice only Patient verbally consented to treatment: Yes Patient verbally consented to billing insurance company: Yes Patient informed of any privacy concerns related to visit: Yes Minutes spent on Phone/Video with Pt.: 15 Assessment and Plan Assessment & Plan (1) Insomnia: Code(s): G47.00 - Insomnia, unspecified Qualifiers: Insomnia type: psychophysiologic Qualified Code(s): F51.04 - Psychophysiologic insomnia Medications: New trazodone 25 mg (1/2 x 50 mg) PO BEDTIME 14 days 7 tabs 0RF sleep F51.04 - Psychophysiologic insomnia Coding Level of Care Code Est Pt Level 3 (32006) Diagnoses Psychophysiological insomnia F51.04 Insomnia type: psychophysiologic
== END 2024-03-04 11:47 | disposition home or self-care (01) ==
LOC: HO.HMGH 09:58
PROVIDERS: PCP Physician Assistant; Visit Provider Physician Assistant
DX: F51.04 Psychophysiologic insomnia (principal)
CPT/HCPCS: 99213

== ENCOUNTER 2024-04-01 11:36 | Outpatient (AMB) | payer MEDICARE, SELFPAY ==
--- NOTE | 2024-04-01 11:41 | MHC.PC.OV ---
Vital Signs 04/01/24 11:42 Height 5 ft 9 in Weight 190 lb 6 oz BMI 28.1 BP 130/80 Blood Pressure Location Lt brachial Position Sitting Pulse 76 Pulse Source Pulse Oximeter Pulse Oximetry (%) 98 Oxygen Delivery Method Room Air Intake Visit Reasons: Sleep Problems Allergies No Known Allergies Allergy (Verified 04/01/24 11:57) Medication List - Last Reconciled 04/01/24 by Carl Stubbs PA-C acetaminophen ER (Arthritis Pain Relief (acetaminophen) ER) 650 mg PO Q8H 30 days diclofenac sodium ER 100 mg PO DAILY PRN 30 days fluorouracil 0.5% 1 appl topical BEDTIME 4 weeks fluticasone propionate 50 mcg/actuation 1 spray intranasal DAILY lisinopril 20 mg PO DAILY lovastatin 40 mg PO DAILY multivitamin 1 tab PO DAILY trazodone 100 mg PO BEDTIME 30 days Tobacco use date assessed: 08/07/23 Dental Screening Dental Screen Date: 08/07/23 HPI Sleep Problems HPI Details Patient is a 68-year-old male here today for follow-up visit. Over the last several weeks has been having some trouble sleeping to what he relates to a urinary issue and also a new issue with a contractor doing work on his house. He reports this is causing a lot of psychological distress which has been disrupting his sleep. Currently using [id number] sleeping aids in uses trazodone 100 mg on a p.r.n. basis. He feels better from an emotional standpoint some of his personal issues have been resolving. He also reports he has been experiencing a dry cough over last 6 months and believes is due to his lisinopril dose. Will transition to losartan 25 mg. Also reports he has been having some lower posterior neck pain. Of note did get CTA of neck during a fall incident in July of 2023 that did show C4-C5 disc issue and arthritis.. He reports he will try to change his pillow PFSH Medical History History of depression History of anxiety Primary localized osteoarthritis of right hip History of cataract HLD (hyperlipidemia) HTN (hypertension) Surgical History History of cataract surgery History of colonoscopy Family History Father Renal cancer Mental health disorder Mother Alzheimers disease Sister Endometrial cancer Social History Household Members: None Housing: House Are you a primary lawn care technician to a significant other at home: No Do you presently have visiting nurse or other home services: No Alcohol intake: never Comment: advised to move rugs Patient Tobacco Use Status: Never used Tobacco e-Cigarette/Vaping Use: Never Used Second Hand Smoke Exposure: No service: No Current occupational status: employed and disabled 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 1. Little interest or pleasure in doing things: not at all 2. Feeling down, depressed, or hopeless: not at all 3. Trouble falling or staying asleep, or sleeping too much: not at all 4. Feeling tired or having little energy: not at all 5. Poor appetite or overeating: not at all 6. Feeling bad about yourself - or that you are a failure or have let yourself or your family down: not at all 7. Trouble concentrating on things, such as reading the newspaper or watching television: not at all 8. Moving or speaking so slowly that other people could have noticed. Or the opposite - being so fidgety or restless that you have been moving around a lot more than usual: not at all 9. Thoughts that you would be better off or of hurting yourself in some way: not at all Total score: 0 Depression Screening Interpretation: Negative Depression Screening Done: Yes 30141 - PHQ-9 Billing: Yes Source: Developed by Drs. Nestor Michelle, Leslye Almazan, Michael Fry and colleagues, with an educational samanta from [employer]. Thrive Questionnaire Date Thrive assessed: 04/01/24 I am a: Patient What is your living situation today?: I have a steady place to live Within the past 12 months, did the food you bought not last and you didn't have the money to get more?: Never true Within the past 12 months, did you worry whether your food would run out before you got money to buy more?: Never true Do you have trouble paying for medicines?: No Do you have trouble getting transportation to medical appointments?: No Do you have trouble paying your heating and electricity bill?: No Do you have trouble taking care of your child, family member or friend?: No Do you have trouble with day-to-day activities such as bathing, preparing meals, shopping, managing finances, etc.?: No Are you currently unemployed and looking for a job?: No Are you interested in more education?: No Please select the resources that you would like help with: None Currently or been in a relationship where the following occur: No concerns reported THRIVE Score: 0 AUDIT C Alcohol Use Questionnaire (AUDIT-C) 1. How often do you have a drink containing alcohol?: Never 3. How often do you have six or more drinks on one occasion?: Never Total Score: 0 VANNA-7 AMB Questionnaire VANNA-7 Date VANNA - 7 assessed: 04/01/24 Feeling nervous, anxious, or on edge: 0 = Not at all Not being able to stop or control worryin = Not at all Worrying too much about different things: 0 = Not at all Trouble relaxin = Not at all Being so restless that it is hard to sit still: 0 = Not at all Becoming easily annoyed or irritable: 0 = Not at all Feeling afraid as if something awful might happen: 0 = Not at all Total VANNA-7 score (0-4 normal; 5-9 mild; 10-14 moderate; 15-21 severe): 0 Source: Developed by Drs. Nestor Michelle, Leslye Almazan, Michael Fry and colleagues, with an educational samanta from [employer]. VANNA-7 Assessment Billing VANNA-7 Assessment Tool: VANNA-7 Assessment 76617 Review of Systems Const Denies headache(s) Eyes Denies loss of vision ENT Denies vertigo, Denies dizziness, Denies headache(s) and Denies sore throat Card Denies chest pain, Denies leg edema and Denies lightheadedness Resp Denies cough, Denies hemoptysis and Denies wheezing GI Denies abdominal pain, Denies melena, Denies constipation, Denies diarrhea and Denies vomiting Denies dysuria, Denies urinary frequency and Denies urinary urgency Musc Denies arthralgias, Denies joint swelling, Denies numbness and Denies tingling Neuro Denies Abnormal speech present, Denies behavioral changes, Denies vertigo, Denies dizziness, Denies headache(s), Denies loss of vision, Denies memory loss, Denies numbness and Denies tingling Psych Denies anxiety, Denies behavioral changes, Denies depression, Denies memory loss and Denies panic attacks Rickey/Lymph Denies easy bleeding and Denies easy bruising Aller/Immun Denies wheezing Physical exam (Primary Care) Vital Signs: Last Vital Signs Pulse 76 04/01/24 11:42 BP 130/80 04/01/24 11:42 Pulse Ox 98 04/01/24 11:42 Oxygen Delivery Method Room Air 04/01/24 11:42 BMI result Body Mass Index 28.1 Tobacco/Smoking Status: Tobacco use Status Tobacco use date assessed 08/07/23 04/01/24 11:41 Patient Tobacco Use Status Never used Tobacco 04/01/24 11:41 e-Cigarette/Vaping Use Never Used 04/01/24 11:41 PHQ-9: PHQ-9 Score PHQ-9: Total score 0 04/01/24 11:59 Depression Screening Interpretation: Negative Thrive Assessment: Date of Thrive Assessment Date Thrive assessed 04/01/24 04/01/24 11:42 Currently or been in a relationship where the following occur: No concerns reported Const General: healthy appearing, no acute distress, alert and awake Nutritional Appearance: well nourished Orientation/consciousness: oriented to person, oriented to place and oriented to time HENMT Ears: TM's normal bilaterally General nose exam: Normal nasal mucous membranes and turbinates present Eyes Conjunctivae: conjunctivae normal Sclerae: sclerae normal Pupils: Equal, round and reactive pupils present Neck Neck: Yes no lymphadenopathy and Yes no JVD Thyroid: Thyroid normal Carotids: no bruits Resp Effort & Inspection: normal respiratory effort and not tachypneic Auscultation: no crackles, no rales, no rhonchi and no wheezes Cardio Rate: regular rate Rhythm: regular rhythm Heart sounds: no murmurs and normal S1 and S2 GI Palpation (GI): Soft to palpation, nontender, no hepatomegaly and no splenomegaly Auscultation: normal bowel sounds Skin General skin exam: no rashes or lesions noted and dry skin Neuro General: oriented to person, oriented to place and oriented to time Cranial nerves: Yes Equal, round and reactive pupils present Speech: No Abnormal speech present Gait exam (Neuro): Normal gait present Motor exam (neuro): no tremor noted Extrem Right upper extremity: full ROM Left upper extremity: full ROM Right lower extremity: full ROM; no edema Left lower extremity: full ROM; no edema Psych Mental Status: mental status grossly normal Speech and movement: Normal speech and movement present Affect: normal affect Attitude: cooperative Thought process: Normal thought process present Office Procedures Flu Questionnaire Does the patient have a severe egg allergy?: No Does the patient have severe life threatening allergies?: No Does the patient have a fever or illness today?: No Has the patient ever had Guillain-Austin Syndrome?: No Has the patient ever had any past reaction to a flu shot?: No Immunizations Fluarix Triv [id number] (PF) 45 mcg (15 mcg x 3)/0.5 mL IM syringe Performing Provider: Carl Stubbs PA-C [facility] [place] [facility] Administered by: AMBER Nevarez on 04/01/24 11:51 Dose Route Admin Location Dispensed Lot Number Expiration Date [facility] [employer] 0.5 mL IM Left Deltoid 0.5 mL [id number] 12/28/24 [id number] [employer] VIS Given Date VIS Provided VIS Publication Date 04/01/24 Single Vaccine 21 Eligibility Eligibility Date Funding Source Not [facility] Eligible 04/01/24 Private Coding Level of Care Code Est Pt Level 4 (98580) Diagnoses Psychophysiological insomnia F51.04 Insomnia type: psychophysiologic Weight loss R63.4 Neck pain M54.2 Additional Codes VANNA-7 Assessment Billing - VANNA-7 Assessment Tool: VANNA-7 Assessment [id number] ([id number]) Assessment & Plan Assessment & Plan (1) Insomnia: Code(s): G47.00 - Insomnia, unspecified Category: Medical Qualifiers: Insomnia type: psychophysiologic Qualified Code(s): F51.04 - Psychophysiologic insomnia Plan: As per HPI patient insomnia has been much better. Does get woken up by his bladder needing to urinate though sleep has been much better. He does use [id number] sleeping aids and p.r.n. use of trazodone 100 mg (2) Weight loss: Code(s): R63.4 - Abnormal weight loss Category: Medical Plan: His weight loss has resolved since being in a better emotional state. 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 He reports having some low posterior neck pain to which he attributes to sleeping awkwardly in his bed. He will try to same change his pillow. Orders: Orders XR cervical spine 4V Today M54.2 - Cervicalgia Influenza [id number] Immunization Today Z23 - Encounter for immunization Medications: New losartan 25 mg PO DAILY 90 tabs 1RF 90 days I10 - Essential (primary) hypertension Discontinued lisinopril Discontinued Reason: Doctor's Order 20 mg PO DAILY 90 tabs 2RF I10 - Essential (primary) hypertension
[2024-04-01 11:42] VITALS: BP 130/80; PULSE 76; O2SAT 98; BMI 28.1
== END 2024-04-01 12:22 | disposition home or self-care (01) ==
PROVIDERS: PCP Physician Assistant; Visit Provider Physician Assistant
DX: F51.04 Psychophysiologic insomnia (principal); R63.4 Abnormal weight loss; M54.2 Cervicalgia; Z23 Encounter for immunization

== ENCOUNTER 2024-04-01 11:36 | Outpatient (REF) | payer MEDICARE, SELFPAY | END 2024-04-01 11:37 | disposition home or self-care (01) | LOC: HO.XRAY 11:36 | PROVIDERS: PCP Physician Assistant; Visit Provider Physician Assistant | DX: F51.04 Psychophysiologic insomnia (principal); R63.4 Abnormal weight loss; Z68.28 Body mass index [BMI] 28.0-28.9, adult; M54.2 Cervicalgia; I10 Essential (primary) hypertension; Z23 Encounter for immunization | CPT/HCPCS: 72050; 90471; 90656; 96127; 99212 ==

== ENCOUNTER 2024-06-19 07:18 | Outpatient (REF) | payer MEDICARE, SELFPAY ==
[2024-06-19 07:46] LABS: Hematocrit 33.8 % (42.0-52.0); Hemoglobin 11.3 g/dl (14.0-18.0); Mean Corpuscular HGB Conc 33.4 g/dl (31.0-36.0); Mean Corpuscular Hemoglobin 31.5 pg (27.0-33.0); Mean Corpuscular Volume 94.2 fL (80.0-98.0); Mean Platelet Volume 8.8 fL (9.4-12.4); Platelet Count 207 X10*3/uL (160-400); Red Blood Count 3.59 X10*6/uL (4.60-5.80); Red Cell Distribution Width 13.6 % (11.0-16.0); White Blood Count 4.9 X10*3/uL (4.8-10.8)
[2024-06-19 08:12] LABS: Cholesterol 166 mg/dL (<200); HDL Cholesterol 52 mg/dL (>40); Iron 29 mcg/dL (45-160); LDL Cholesterol Calculated 104 mg/dL (<100); Percent Iron Saturation 12 % (15-50); Total Iron Binding Capacity 238 mcg/dL (228-428); Triglycerides 51 mg/dL (<150); Unsaturated Iron Binding 209 ug/dL
[2024-06-19 11:58] LABS: Creatinine Urine 114.71 mg/dL; Microalbumin Urine < 5.0 mg/L
== END 2024-06-19 07:19 | disposition home or self-care (01) ==
LOC: HO.LAB 07:18
PROVIDERS: PCP Physician Assistant; Visit Provider Physician Assistant
DX: I10 Essential (primary) hypertension (principal); E78.00 Pure hypercholesterolemia, unspecified; D64.89 Other specified anemias; D50.9 Iron deficiency anemia, unspecified
CPT/HCPCS: 36415; 80061; 82043; 82570; 83540; 85027

== ENCOUNTER 2024-07-06 08:05 | Outpatient (AMB) | payer MEDICARE, SELFPAY ==
--- NOTE | 2024-07-06 08:17 | A.OFFPC_ITS ---
Vital Signs 07/06/24 08:19 Height 5 ft 9 in Weight 194 lb BMI 28.6 BP 110/72 Blood Pressure Location Lt brachial Position Sitting Pulse 60 Pulse Source Pulse Oximeter Pulse Oximetry (%) 98 Oxygen Delivery Method Room Air Intake Visit Reasons: f/u HTN / HLD Intake Note: Patient is here to follow up on HTN, HLD. Hydrodynamics Professor Required: No Elevator Attendant: Not Required per policy Accompanied by: Self / Same As Patient Allergies No Known Allergies Allergy (Verified 07/06/24 08:40) Medication List - Last Reconciled 07/06/24 by Carl Stubbs PA-C acetaminophen ER (Arthritis Pain Relief (acetaminophen) ER) 650 mg PO Q8H 30 days diclofenac sodium ER 100 mg PO DAILY PRN 30 days fluorouracil 0.5% 1 appl topical BEDTIME 4 weeks fluoxetine 20 mg PO DAILY 30 days fluticasone propionate 50 mcg/actuation 1 spray intranasal DAILY losartan 50 mg PO DAILY 90 days lovastatin 40 mg PO DAILY multivitamin 1 tab PO DAILY trazodone 100 mg PO BEDTIME 30 days Tobacco use date assessed: 07/06/24 Fall risk assessment: No Falls in past year Last assessed Fall Risk: 07/06/24 Dental Screening Dental Screen Date: 07/06/24 Did you have a dental visit in the last 12 months?: Yes Did you have a dental problem in the last 6 months where you did not have access to dental care?: No Was dental information given to patient?: Patient has dentist HPI f/u HTN / HLD HPI Details Patient is a 69-year-old male here today for follow-up visit ? Pmhx significant for HLD, HTN, Anxiety, Micoscopic hematuria, BPH, recovering addict, status post right hip replacement complicated by bursitis Concerns--> the patient experiences pain behind the left knee following an injury sustained in March when he banged his knee on a chair. He developed bruising around the injury site, which has since persisted and is occasionally painful. Despite no palpable lump, there is numbness reported in the affected foot. The patient attributes these symptoms to possibly ligament-related issues at the posterior knee. He is otherwise able to maintain functionality, including kneeling and crossing legs. ? .. ? HLD: Has been stable with Statin therapy, lipid panel slightly more elevated than previous, patient believes this is diet related. . Patient reports diet has been the same and would like to continue following the lipid panel. .. Normocytic anemia:? Has been anemic for many years now though has worsened since his total hip replacement.? He has a history of anemia and recent laboratory tests indicated low iron levels, which is postulated to be influenced by dietary changes. There have been no reports of active bleeding or symptoms that would imply acute blood loss, and no hemorrhoidal bleeding was noted. The patient's cholesterol levels have improved, which he attributes to weight loss and dietary modification. ? .. ? HTN: No headaches or CP reported .? Pressures have been stable with lisinopril 20 mg.. ? .. ? Anxiety: He has restarted SSRI therapy and has been feeling much better. Laboratory Tests 07/30/23 12/24/23 06/19/24 10:38 09:55 07:39 RBC 3.59 L Hgb 11.3 L Iron 94 29 L LDL Cholesterol, C alc 138 H 104 H Urine Microalbumin 06/19/24 07:40 RBC Hgb Iron LDL Cholesterol, C alc Urine Microalbumin < 5.0 PFSH Medical History History of depression History of anxiety Primary localized osteoarthritis of right hip History of cataract HLD (hyperlipidemia) HTN (hypertension) Surgical History History of cataract surgery History of colonoscopy Family History Father Renal cancer Mental health disorder Mother Alzheimers disease Sister Endometrial cancer Social History Household Members: None Housing: House Are you a primary healthcare representative to a significant other at home: No Do you presently have visiting nurse or other home services: No Alcohol intake: never Comment: advised to move rugs Patient Tobacco Use Status: Never used Tobacco e-Cigarette/Vaping Use: Never Used Second Hand Smoke Exposure: No service: No Current occupational status: employed and disabled 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 1. Little interest or pleasure in doing things: not at all 2. Feeling down, depressed, or hopeless: not at all 3. Trouble falling or staying asleep, or sleeping too much: not at all 4. Feeling tired or having little energy: not at all 5. Poor appetite or overeating: not at all 6. Feeling bad about yourself - or that you are a failure or have let yourself or your family down: not at all 7. Trouble concentrating on things, such as reading the newspaper or watching television: not at all 8. Moving or speaking so slowly that other people could have noticed. Or the opposite - being so fidgety or restless that you have been moving around a lot more than usual: not at all 9. Thoughts that you would be better off or of hurting yourself in some way: not at all Total score: 0 Depression Screening Interpretation: Negative Depression Screening Done: Yes 17460 - PHQ-9 Billing: Yes Source: Developed by Drs. Nestor Michelle, Leslye Almazan, Michael Fry and colleagues, with an educational samanta from [employer]. Thrive Questionnaire Date Thrive assessed: 07/06/24 I am a: Patient What is your living situation today?: I have a steady place to live Within the past 12 months, did the food you bought not last and you didn't have the money to get more?: Never true Within the past 12 months, did you worry whether your food would run out before you got money to buy more?: Never true Do you have trouble paying for medicines?: No Do you have trouble getting transportation to medical appointments?: No Do you have trouble paying your heating and electricity bill?: No Do you have trouble taking care of your child, family member or friend?: No Do you have trouble with day-to-day activities such as bathing, preparing meals, shopping, managing finances, etc.?: No Are you currently unemployed and looking for a job?: No Are you interested in more education?: No Currently or been in a relationship where the following occur: No concerns reported THRIVE Score: 0 AUDIT C Alcohol Use Questionnaire (AUDIT-C) 1. How often do you have a drink containing alcohol?: Never Total Score: 0 VANNA-7 AMB Questionnaire VANNA-7 Date VANNA - 7 assessed: 07/06/24 Feeling nervous, anxious, or on edge: 0 = Not at all Not being able to stop or control worryin = Not at all Worrying too much about different things: 0 = Not at all Trouble relaxin = Not at all Being so restless that it is hard to sit still: 0 = Not at all Becoming easily annoyed or irritable: 0 = Not at all Feeling afraid as if something awful might happen: 0 = Not at all Total VANNA-7 score (0-4 normal; 5-9 mild; 10-14 moderate; 15-21 severe): 0 Source: Developed by Drs. Nestor Michelle, Leslye Almazan, Michael Fry and colleagues, with an educational samanta from [employer]. VANNA-7 Assessment Billing VANNA-7 Assessment Tool: VANNA-7 Assessment 39283 Review of Systems Const Denies headache(s) Eyes Denies loss of vision ENT Denies vertigo, Denies dizziness, Denies headache(s) and Denies sore throat Card Denies chest pain, Denies leg edema and Denies lightheadedness Resp Denies cough, Denies hemoptysis and Denies wheezing GI Denies abdominal pain, Denies melena, Denies constipation, Denies diarrhea and Denies vomiting Denies dysuria, Denies urinary frequency and Denies urinary urgency Musc Denies arthralgias, Denies joint swelling, Denies numbness and Denies tingling Neuro Denies Abnormal speech present, Denies behavioral changes, Denies vertigo, Denies dizziness, Denies headache(s), Denies loss of vision, Denies memory loss, Denies numbness and Denies tingling Psych Denies anxiety, Denies behavioral changes, Denies depression, Denies memory loss and Denies panic attacks Rickey/Lymph Denies easy bleeding and Denies easy bruising Aller/Immun Denies wheezing Physical exam (Primary Care) Vital Signs: Last Vital Signs Pulse 60 07/06/24 08:19 BP 110/72 07/06/24 08:19 Pulse Ox 98 07/06/24 08:19 Oxygen Delivery Method Room Air 07/06/24 08:19 BMI result Body Mass Index 28.6 Tobacco/Smoking Status: Tobacco use Status Tobacco use date assessed 07/06/24 07/06/24 08:23 Patient Tobacco Use Status Never used Tobacco 07/06/24 08:17 e-Cigarette/Vaping Use Never Used 07/06/24 08:17 PHQ-9: PHQ-9 Score PHQ-9: Total score 0 07/06/24 08:42 Depression Screening Interpretation: Negative Thrive Assessment: Date of Thrive Assessment Date Thrive assessed 07/06/24 07/06/24 08:23 Currently or been in a relationship where the following occur: No concerns reported Const General: healthy appearing, no acute distress, alert and awake Nutritional Appearance: well nourished Orientation/consciousness: oriented to person, oriented to place and oriented to time HENMT Ears: TM's normal bilaterally General nose exam: Normal nasal mucous membranes and turbinates present Eyes Conjunctivae: conjunctivae normal Sclerae: sclerae normal Pupils: Equal, round and reactive pupils present Neck Neck: Yes no lymphadenopathy and Yes no JVD Thyroid: Thyroid normal Carotids: no bruits Resp Effort & Inspection: normal respiratory effort and not tachypneic Auscultation: no crackles, no rales, no rhonchi and no wheezes Cardio Rate: regular rate Rhythm: regular rhythm Heart sounds: no murmurs and normal S1 and S2 GI Palpation (GI): Soft to palpation, nontender, no hepatomegaly and no splenomegaly Auscultation: normal bowel sounds Skin General skin exam: no rashes or lesions noted and dry skin Neuro General: oriented to person, oriented to place and oriented to time Cranial nerves: Yes Equal, round and reactive pupils present Speech: No Abnormal speech present Gait exam (Neuro): Normal gait present Motor exam (neuro): no tremor noted Extrem Right upper extremity: full ROM Left upper extremity: full ROM Right lower extremity: full ROM; no edema Left lower extremity: full ROM; no edema Psych Mental Status: mental status grossly normal Speech and movement: Normal speech and movement present Affect: normal affect Attitude: cooperative Thought process: Normal thought process present Coding Level of Care Code Est Pt Level 4 (41207) Diagnoses Pure hypercholesterolemia E78.00 Hyperlipidemia type: pure hypercholesterolemia Psychophysiological insomnia F51.04 Insomnia type: psychophysiologic Primary hypertension I10 Hypertension type: primary hypertension Anemia due to other cause, not classified D64.89 Anemia type: other cause Other causes of anemia: other cause, not classified Chronic pain of left knee M25.562; G89.29 Chronicity: chronic Additional Codes PHQ-9 - 96219 - PHQ-9 Billing: Yes ([id number]) VANNA-7 Assessment Billing - VANNA-7 Assessment Tool: VANNA-7 Assessment [id number] ([id number]) Assessment & Plan Assessment & Plan (1) HLD (hyperlipidemia): Code(s): E78.5 - Hyperlipidemia, unspecified Category: Medical Qualifiers: Hyperlipidemia type: pure hypercholesterolemia Qualified Code(s): E78.00 - Pure hypercholesterolemia, unspecified Plan: Patient's most recent fasting lipid panel showing excellent control of his total cholesterol and LDL. He will continue his current dose of lovastatin 40 mg with goal LDL to remain below 130 (2) Insomnia: Code(s): G47.00 - Insomnia, unspecified Category: Medical Qualifiers: Insomnia type: psychophysiologic Qualified Code(s): F51.04 - Psychophysiologic insomnia Plan: As per HPI patient insomnia has been much better. Does get woken up by his bladder needing to urinate though sleep has been much better. He does use [id number] sleeping aids and p.r.n. use of trazodone 100 mg (3) HTN (hypertension): Code(s): I10 - Essential (primary) hypertension Category: Medical Qualifiers: Hypertension type: primary hypertension Qualified Code(s): I10 - Essential (primary) hypertension Plan: Patient's blood pressure acceptable today in office and will continue his current dose losartan with goal blood pressure to remain below 140/90 (4) Anemia: Code(s): D64.9 - Anemia, unspecified Category: Medical Qualifiers: Anemia type: other cause Other causes of anemia: other cause, not classified Qualified Code(s): D64.89 - Other specified anemias Plan: I discussed the patient's anemia and its likely correlation with dietary intake. The importance of iron supplementation and dietary changes to address this was emphasized (5) Left knee pain: Code(s): M25.562 - Pain in left knee Category: Medical Qualifiers: Chronicity: chronic Qualified Code(s): M25.562 - Pain in left knee; G89.29 - Other chronic pain Plan: We reviewed the knee pain, its persistent but non-disabling nature, and the necessity of an x-ray to clarify the need for further imaging such as an MRI. - Consider physical therapy focused on posterior knee strength and flexibility if imaging identifies no acute risk factors. Orders: Orders Prostate Specific Antigen Scr 07/06/24 N40.0 - Benign prostatic hyperplasia without lower urinary tract symptoms, Z12.5 - Encounter for screening for malignant neoplasm of prostate Comprehensive [place]. Panel Fast 07/06/24 I10 - Essential (primary) hypertension Complete Blood Count no Diff 07/06/24 I10 - Essential (primary) hypertension IRON PROFILE 07/06/24 D50.9 - Iron deficiency anemia, unspecified, D64.89 - Other specified anemias Lipid Panel 07/06/24 E78.00 - Pure hypercholesterolemia, unspecified XR knee LT 3V 07/06/24 G89.29 - Other chronic pain, M25.562 - Pain in left knee
[2024-07-06 08:19] VITALS: BP 110/72; PULSE 60; O2SAT 98; BMI 28.6
== END 2024-07-06 09:08 | disposition home or self-care (01) ==
PROVIDERS: PCP Physician Assistant; Visit Provider Physician Assistant
DX: E78.00 Pure hypercholesterolemia, unspecified (principal); F51.04 Psychophysiologic insomnia; I10 Essential (primary) hypertension; D64.89 Other specified anemias; M25.562 Pain in left knee; G89.29 Other chronic pain

== ENCOUNTER → 2024-07-06 08:05 | Outpatient (BNVA) | payer MEDICARE, SELFPAY | PROVIDERS: PCP Physician Assistant; Visit Provider Physician Assistant | DX: I10 Essential (primary) hypertension (principal); E78.00 Pure hypercholesterolemia, unspecified; F51.04 Psychophysiologic insomnia; E78.5 Hyperlipidemia, unspecified; F41.9 Anxiety disorder, unspecified; N40.0 Benign prostatic hyperplasia without lower urinary tract symptoms; D64.89 Other specified anemias; M25.562 Pain in left knee; G89.29 Other chronic pain; D50.9 Iron deficiency anemia, unspecified; Z12.5 Encounter for screening for malignant neoplasm of prostate; Z96.641 Presence of right artificial hip joint | CPT/HCPCS: 96127; 99212 ==

== ENCOUNTER 2024-07-07 15:13 | Outpatient (REF) | payer MEDICARE, SELFPAY ==
--- NOTE | ~2024-07-07 | XR_ITS ---
CLINICAL HISTORY: M25.562 - Pain in left knee 4 view left knee Comparison: None Findings: Bones intact. No dislocations. No significant loss of joint space, osteophytes, or erosions. No joint effusion. No radiopaque foreign body. There is regional arterial calcification. IMPRESSION: 1. No acute findings. This document has been electronically signed by: Inocencio Arriaga MD on 07/09/2024 19:02:06
== END 2024-07-07 15:14 | disposition home or self-care (01) ==
LOC: HO.XRAY 15:13
PROVIDERS: PCP Physician Assistant; Visit Provider Physician Assistant
DX: M25.562 Pain in left knee (principal); G89.29 Other chronic pain
CPT/HCPCS: 73562

== ENCOUNTER → 2024-07-07 15:17 | Outpatient (BNV) | payer MEDICARE, SELFPAY | PROVIDERS: PCP Physician Assistant; Visit Provider Specialist | DX: M25.562 Pain in left knee (principal) | CPT/HCPCS: 73562 ==

== ENCOUNTER 2024-12-24 06:31 | Outpatient (REF) | payer MEDICARE, SELFPAY ==
[2024-12-24 07:19] LABS: Hematocrit 36.2 % (42.0-52.0); Hemoglobin 12.2 g/dl (14.0-18.0); Mean Corpuscular HGB Conc 33.7 g/dl (31.0-36.0); Mean Corpuscular Hemoglobin 31.3 pg (27.0-33.0); Mean Corpuscular Volume 92.8 fL (80.0-98.0); Mean Platelet Volume 9.4 fL (9.4-12.4); Platelet Count 218 X10*3/uL (160-400); Red Cell Distribution Width 13.6 % (11.0-16.0); White Blood Count 3.9 X10*3/uL (4.8-10.8)
[2024-12-24 07:54] LABS: Alanine Aminotransferase 14 U/L (0-40); Albumin Level 4.4 g/dL (3.5-5.0); Alkaline Phosphatase 39 U/L (39-117); Anion Gap 13 (12-20); Aspartate Amino Transferase 23 U/L (5-37); Bilirubin Total 0.4 mg/dL (0.0-1.0); Blood Urea Nitrogen 20 mg/dL (9-16); Calcium 9.5 mg/dL (8.4-10.2); Carbon Dioxide 25 mmol/L (22-29); Chloride 105 mmol/L (96-108); Cholesterol 174 mg/dL (<200); Estimated Glomerular Filt Rate > 60; Glucose Fasting 99 mg/dL (60-99); HDL Cholesterol 56 mg/dL (>40); Iron 57 mcg/dL (45-160); LDL Cholesterol Calculated 106 mg/dL (<100); Percent Iron Saturation 23 % (15-50); Potassium 4.7 mmol/L (3.3-5.1); Sodium 138 mmol/L (135-145); Total Iron Binding Capacity 250 mcg/dL (228-428); Total Protein 6.6 g/dL (6.5-8.0); Triglycerides 61 mg/dL (<150); Unsaturated Iron Binding 193 ug/dL
[2024-12-24 08:04] LABS: Prostate Specific Antigen Scr 0.87 ng/mL (<0.05-4.0)
== END 2024-12-24 06:32 | disposition home or self-care (01) ==
LOC: HO.LAB 06:31
PROVIDERS: PCP Physician Assistant; Visit Provider Physician Assistant
DX: I10 Essential (primary) hypertension (principal); E78.00 Pure hypercholesterolemia, unspecified; Z12.5 Encounter for screening for malignant neoplasm of prostate; N40.0 Benign prostatic hyperplasia without lower urinary tract symptoms; D50.9 Iron deficiency anemia, unspecified; D64.89 Other specified anemias
CPT/HCPCS: 36415; 80053; 80061; 83540; 84153; 85027

== ENCOUNTER 2025-01-06 08:35 | Outpatient (AMB) | payer MEDICARE, SELFPAY ==
--- NOTE | 2025-01-06 08:46 | MHC.PC.OV ---
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 Payroll Required: No Accompanied by: Self / Same As Patient Allergies No Known Allergies Allergy (Verified 01/06/25 08:50) Medication List - Last Reconciled 01/06/25 by Carl Stubbs PA-C acetaminophen ER (Arthritis Pain Relief (acetaminophen) ER) 650 mg PO Q8H 30 days diclofenac sodium ER 100 mg PO DAILY PRN 30 days fluorouracil 0.5% 1 appl topical BEDTIME 4 weeks fluoxetine 20 mg PO DAILY 90 days fluticasone propionate 50 mcg/actuation 1 spray intranasal DAILY losartan 50 mg PO DAILY 90 days lovastatin 40 mg PO DAILY multivitamin 1 tab PO DAILY trazodone 100 mg PO BEDTIME 30 days Tobacco use date assessed: 07/06/24 Fall risk assessment: No Falls in past year Last assessed Fall Risk: 01/06/25 Dental Screening Dental Screen Date: 01/06/25 Did you have a dental visit in the last 12 months?: Yes Did you have a dental problem in the last 6 months where you did not have access to dental care?: No Was dental information given to patient?: Patient has dentist HPI Annual Exam HPI Details Patient is a 69-year-old male here today for routine annual physical. ? Pmhx significant for HLD, HTN, Anxiety, Micoscopic hematuria, BPH, recovering addict, status post right hip replacement complicated by bursitis Concerns--> reports his anxiety depression has been more evident in his of late. Has restarted his fluoxetine 20 mg and x-ray has been taking 40 mg daily and feels a bit better. He is asking for a script 40 mg fluoxetine. ? .. ? HLD: Has been stable with Statin therapy, most recent lipid panel showing good control of his total cholesterol and LDL. . Patient reports diet has been the same and would like to continue following the lipid panel. .. Normocytic anemia:? Has been anemic for many years now though has worsened since his total hip replacement.? He has a history of anemia and recent laboratory tests indicated low iron levels, which is postulated to be influenced by dietary changes. There have been no reports of active bleeding or symptoms that would imply acute blood loss, and no hemorrhoidal bleeding was noted. Most recent labs showing improved iron and hemoglobin levels. ? .. ? HTN: No headaches or CP reported .? Pressures have been stable with lisinopril 20 mg.. ? .. ? Anxiety: He has restarted SSRI therapy and has been feeling much better. ? vaccines:? up-to-date with COVID, flu, pneumonia, tetanus and shingles vaccines Colorectal cancer screening:? Up-to-date with colonoscopy- 2018 -normal repeat 10 years Laboratory Tests 06/19/24 12/24/24 07:39 06:47 RBC 3.59 L 3.90 L Hgb 11.3 L 12.2 L Creatinine 0.90 Iron 29 L 57 Cholesterol 166 174 PSA Screen 0.87 PFSH Medical History History of depression History of anxiety Primary localized osteoarthritis of right hip History of cataract HLD (hyperlipidemia) HTN (hypertension) Surgical History History of cataract surgery History of colonoscopy Family History Father Renal cancer Mental health disorder Mother Alzheimers disease Sister Endometrial cancer Social History Household Members: None Housing: House Are you a primary career center advisor to a significant other at home: No Do you presently have visiting nurse or other home services: No Alcohol intake: never Comment: advised to move rugs Patient Tobacco Use Status: Never used Tobacco e-Cigarette/Vaping Use: Never Used Second Hand Smoke Exposure: No service: No Current occupational status: employed and disabled 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 1. Little interest or pleasure in doing things: not at all 2. Feeling down, depressed, or hopeless: not at all 3. Trouble falling or staying asleep, or sleeping too much: not at all 4. Feeling tired or having little energy: not at all 5. Poor appetite or overeating: not at all 6. Feeling bad about yourself - or that you are a failure or have let yourself or your family down: not at all 7. Trouble concentrating on things, such as reading the newspaper or watching television: not at all 8. Moving or speaking so slowly that other people could have noticed. Or the opposite - being so fidgety or restless that you have been moving around a lot more than usual: not at all 9. Thoughts that you would be better off or of hurting yourself in some way: not at all Total score: 0 Depression Screening Interpretation: Negative Depression Screening Done: Yes 29918 - PHQ-9 Billing: Yes Source: Developed by Drs. Nestor Michelle, Leslye Almazan, Michael Fry and colleagues, with an educational samanta from [employer]. Thrive Questionnaire Date Thrive assessed: 01/06/25 I am a: Patient What is your living situation today?: I have a steady place to live Within the past 12 months, did the food you bought not last and you didn't have the money to get more?: Never true Within the past 12 months, did you worry whether your food would run out before you got money to buy more?: Never true Do you have trouble paying for medicines?: No Do you have trouble getting transportation to medical appointments?: No Do you have trouble paying your heating and electricity bill?: No Do you have trouble taking care of your child, family member or friend?: No Do you have trouble with day-to-day activities such as bathing, preparing meals, shopping, managing finances, etc.?: No Are you currently unemployed and looking for a job?: No Are you interested in more education?: No Please select the resources that you would like help with: None Currently or been in a relationship where the following occur: No concerns reported THRIVE Score: 0 AUDIT C Alcohol Use Questionnaire (AUDIT-C) 1. How often do you have a drink containing alcohol?: Never Total Score: 0 VANNA-7 AMB Questionnaire VANNA-7 Date VANNA - 7 assessed: 01/06/25 Feeling nervous, anxious, or on edge: 0 = Not at all Not being able to stop or control worryin = Not at all Worrying too much about different things: 0 = Not at all Trouble relaxin = Not at all Being so restless that it is hard to sit still: 0 = Not at all Becoming easily annoyed or irritable: 0 = Not at all Feeling afraid as if something awful might happen: 0 = Not at all Total VANNA-7 score (0-4 normal; 5-9 mild; 10-14 moderate; 15-21 severe): 0 Source: Developed by Drs. Nestor Michelle, Leslye Almazan, Michael Fry and colleagues, with an educational samanta from [employer]. VANNA-7 Assessment Billing VANNA-7 Assessment Tool: VANNA-7 Assessment 07586 Review of Systems Const Denies body aches, Denies chills, Denies excessive sweating, Denies fatigue, Denies fever(s) and Denies headache(s) Eyes Denies blurry vision ENT Denies dysphagia, Denies vertigo, Denies dizziness, Denies headache(s), Denies hearing loss and Denies tinnitus Card Denies chest pain, Denies chest pain with activity, Denies syncope, Denies irregular heart rhythm and Denies dyspnea Resp Denies chest congestion, Denies cough, Denies hemoptysis, Denies dyspnea and Denies wheezing GI Denies abdominal pain, Denies melena, Denies hematochezia, Denies coffee ground emesis, Denies dysphagia, Denies diarrhea, Denies nausea and Denies vomiting Denies difficulty urinating, Denies dysuria, Denies urinary frequency, Denies urinary hesitancy and Denies urinary urgency Musc Denies arthralgias, Denies limited range of motion, Denies muscle cramps and Denies muscle weakness Skin/Breast Denies rash and Denies skin ulcer Neuro Denies Abnormal speech present, Denies confusion, Denies vertigo, Denies dizziness, Denies syncope, Denies headache(s), Denies memory loss and Denies seizure-like activity Psych Denies anxiety, Denies confusion, Denies depression, Denies memory loss, Denies panic attacks and Denies paranoia Endo Denies excessive sweating, Denies fatigue, Denies flushing, Denies polydipsia and Denies polyuria Aller/Immun Denies wheezing Physical exam (Primary Care) Vital Signs: Last Vital Signs BP 122/70 01/06/25 08:47 BMI result Body Mass Index 26.3 Tobacco/Smoking Status: Tobacco use Status Tobacco use date assessed 07/06/24 07/06/24 08:23 Patient Tobacco Use Status Never used Tobacco 07/06/24 08:17 e-Cigarette/Vaping Use Never Used 07/06/24 08:17 Depression Screening Interpretation: Negative Thrive Assessment: Date of Thrive Assessment Date Thrive assessed 12/30/24 12/30/24 12:43 Currently or been in a relationship where the following occur: No concerns reported Const General: cooperative, comfortable, no acute distress, alert and awake; No confusion Orientation/consciousness: oriented to person, oriented to place, patient oriented x3 and No confusion HENMT Head: Yes normocephalic Ears: external ears normal and TM's normal bilaterally Face and sinus: No sinus tenderness Mouth: Normal oral and palatal mucosa present and tongue normal Teeth and gingiva: dentition normal and gingiva normal Throat: Yes posterior oropharynx normal, Yes tonsils normal and Yes uvula midline Eyes Conjunctivae: conjunctivae normal Sclerae: sclerae normal Pupils: Equal, round and reactive pupils present EOM: EOMs intact bilaterally Direct Ophthalmoscopy: No no photophobia Neck Neck: Yes no lymphadenopathy, No tender and Yes no JVD Thyroid: Thyroid normal Carotids: no bruits Chest Chest palpation & inspection: no tenderness Resp Effort & Inspection: normal respiratory effort, no audible wheezes, not labored and no stridor Auscultation: no crackles, no rales, no rhonchi and no wheezes Cardio Jugular venous distension: no JVD Rate: regular rate, not bradycardic and not tachycardic Rhythm: regular rhythm Bruits: no carotid bruits Peripheral pulses: Peripheral pulses 2+ throughout GI Inspection: Yes normal to inspection, No abdominal wall ecchymosis and No visible herniation Palpation (GI): Soft to palpation, nontender, no guarding, not rigid and No hepatosplenomegaly present Auscultation: normoactive bowel sounds General: Yes no CVA tenderness Back/Spine/Pelvis Back: no CVA tenderness and No back tenderness Cervical Spine: cervical ROM normal Thoracic/Lumbar Spine: thoracic and lumbar spine normal to inspection, straight leg raise negative bilaterally, No thoraco-lumbar ROM limited and No lumbar spinal tenderness Skin Lesions: no lesions Rashes: no rashes Wounds: no wounds Neuro General: oriented to person, oriented to place, patient oriented x3, CN's II-XI intact bilaterally and No confusion Cranial nerves: Yes Equal, round and reactive pupils present and Yes Normal accommodation reflex present Cognition (Neuro): normal cognition Speech: No Abnormal speech present Gait exam (Neuro): Normal gait present Motor exam (neuro): 5/5 motor strength present throughout Extrem Right upper extremity: full ROM; no cyanosis Left upper extremity: full ROM; no cyanosis Right lower extremity: no edema Left lower extremity: no edema Psych Appearance: grossly normal Mental Status: mental status grossly normal Affect: normal affect Attitude: cooperative Thought process: Normal thought process present Coding Level of Care Code Est Pt Prev Care >65y(86916) Diagnoses Annual physical exam Z00.00 Pure hypercholesterolemia E78.00 Hyperlipidemia type: pure hypercholesterolemia Psychophysiological insomnia F51.04 Insomnia type: psychophysiologic Primary hypertension I10 Hypertension type: primary hypertension Anemia due to other cause, not classified D64.89 Anemia type: other cause Other causes of anemia: other cause, not classified VANNA (generalized anxiety disorder) F41.1 Additional Codes PHQ-9 - 65056 - PHQ-9 Billing: Yes ([id number]) VANNA-7 Assessment Billing - VANNA-7 Assessment Tool: VANNA-7 Assessment 85951 ([id number]) Assessment & Plan Assessment & Plan (1) Annual physical exam: Code(s): Z00.00 - Encounter for general adult medical examination without abnormal findings Category: Medical Plan: as per HPI (2) HLD (hyperlipidemia): Code(s): E78.5 - Hyperlipidemia, unspecified Category: Medical Qualifiers: Hyperlipidemia type: pure hypercholesterolemia Qualified Code(s): E78.00 - Pure hypercholesterolemia, unspecified Plan: Patient's most recent fasting lipid panel showing excellent control of his total cholesterol and LDL. He will continue his current dose of lovastatin 40 mg with goal LDL to remain below 130 (3) Insomnia: Code(s): G47.00 - Insomnia, unspecified Category: Medical Qualifiers: Insomnia type: psychophysiologic Qualified Code(s): F51.04 - Psychophysiologic insomnia Plan: As per HPI patient insomnia has been much better since managing his anxiety and depression bit better. Has not been using trazodone. He is interested in increasing his fluoxetine dose to 40 mg (4) HTN (hypertension): Code(s): I10 - Essential (primary) hypertension Category: Medical Qualifiers: Hypertension type: primary hypertension Qualified Code(s): I10 - Essential (primary) hypertension Plan: Patient's blood pressure acceptable today in office and will continue his current dose losartan with goal blood pressure to remain below 140/90 (5) Anemia: Code(s): D64.9 - Anemia, unspecified Category: Medical Qualifiers: Anemia type: other cause Other causes of anemia: other cause, not classified Qualified Code(s): D64.89 - Other specified anemias Plan: I discussed the patient's anemia and its likely correlation with dietary intake. Most recent CBC with improvement and iron level now normal. The importance of iron supplementation and dietary changes to address this was emphasized (6) VANNA (generalized anxiety disorder): Code(s): F41.1 - Generalized anxiety disorder Category: Medical Plan: Patient reports he would like to increase his fluoxetine dose to 40 mg for his anxiety Orders: Orders Complete Blood Count Auto Diff Today D64.89 - Other specified anemias IRON PROFILE Today D50.9 - Iron deficiency anemia, unspecified, D64.89 - Other specified anemias Microalbumin, Random (w Creat) Today I10 - Essential (primary) hypertension Lipid Panel Today E78.00 - Pure hypercholesterolemia, unspecified Comprehensive [place]. Panel Fast Today I10 - Essential (primary) hypertension Prostate Specific Antigen Scr Today I10 - Essential (primary) hypertension, Z12.5 - Encounter for screening for malignant neoplasm of prostate
[2025-01-06 08:47] VITALS: BP 122/70; BMI 26.3
--- OUTSIDE RECORDS SUMMARY | 2025-01-06 08:49 | XMS_ITS | Clinical Summary ---
Author Organization [employer] Address [address] [place] [address] Care Team Providers Care Lead Esthetician Name Role Phone Unavailable Primary Care Provider Unavailabl e Allergies No known active allergies Medications FLUoxetine (PROzac) 20 MG capsule 5 Active losartan (Cozaar) 50 MG tablet TAKE 1 TABLET BY MOUTH ONCE DAILY (DOSE INCREASE) 4 Active lovastatin (Mevacor) 40 MG tablet Take 40 mg by mouth Once per day. Active diclofenac sodium (Voltaren XR) 100 mg 24 hr tablet TAKE 1 TABLET BY MOUTH ONCE DAILY NEEDED FOR PAIN SCALE OF 7-10 4 Active fluorouracil (Efudex) 5 % cream 4 Active fluticasone (Flonase) 50 MCG/ACT nasal spray Administer 1 spray into each nostril Once per day. 4 Active latanoprost (Xalatan) 0.005 % ophthalmic solution instill 1 drop into each eye at bedtime 4 Active traZODone (Desyrel) 100 MG tablet Take 100 mg by mouth at bedtime. 4 Active Active Problems No known active problems Encounters Date Type Department Care Team Description 12/31/2024 Telephone [facility] [address] [place] [address] Ector Cosme DDS 12/03/2024 Telephone [facility] [address] [place] [address] Katelynn Nick 12/02/2024 9:00 AM EDT Office Visit [facility] [address] [place] [address] Lela Bui from Last 3 Months Social History Tobacco Use Types Packs/Day Years Used Date Smoking Tobacco: Former Cigarettes Smokeless Tobacco: Former Tobacco Cessation:Counseling Given: Not Answered Alcohol Use Standard Drinks/Week Comments Not Currently 0 (1 standard drink = 0.6 oz pur e alcohol) Sex and Gender Information Value Date Recorded Sex Assigned at Male 06/29/2024 2:02 PM EST Legal Sex Male 2:00 PM EST Gender Identity Male 06/29/2024 2:02 PM EST Sexual Orientation Straight 06/29/2024 2: 02 PM EST Last Filed Vital Signs Vital Sign Reading Time Taken Comments Blood Pressure 128/72 12/02/2024 8:55 AM EDT Pulse - - Temperature - - Respiratory Rate - - Oxygen Saturation - - Inhaled Oxygen Concentration - - Weight - - Height - - Body Mass Index - - Plan of Treatment Upcoming Encounters Date Type Department Care Team (Late st Contact Info) Description 01/11/2025 11:15 AM EDT Office Visit [facility] [address] [place] [address] Health Maintenance Due Date Last Done Comments CT Colonography 1955 Colonoscopy 1955 Colorectal Cancer Screening 1955 Depression Screening 1955 FIT DNA/Cologuard 1955 FIT 1955 FOBT 1955 Lipid Panel 1955 SDOH Screening 1955 Sigmoidoscopy 1955 Alcohol/Substance Use Screening 1967 Hepatitis C Screening 1973 COVID-19 Vaccine ( season) 2024 05/15/2021, 10/13/2020, 09/15/2020 Influenza Vaccine (#1) 2025 , 05/29/2023, 05/16/2022, Additional history exists Dental Oral Exam 06/04/2025 12/02/2024 Dental Prophylaxis 06/04/2025 12/02/2024 Tobacco Screening 12/02/2025 12/02/2024 Dental X-Ray: Bitewings 12/03/2025 12/02/2024 Dental X-Ray: Full Mouth 12/04/2027 12/02/2024 RSV Patients and Patients Aged 60 years or older (1 - 1-dose 75+ series) 2030 DTaP/Tdap/Td Vaccines (3 - Td or Tdap) 07/18/2033 07/18/2023, 06/13/2016 Zoster Vaccines Completed 05/29/2020, 03/26/2020 Pneumococcal Vaccine: 50+ Years Completed 06/15/2021, 06/13/2020 HIB Vaccines Aged Out No longer eligi ble based on patient's age to complete this topic HPV Vaccines Aged Out No longer eligi ble based on patient's age to complete this topic Hepatitis A Vaccines Aged Out No long er eligible based on patient's age to complete this topic Hepatitis B Vaccines Aged Out No long er eligible based on patient's age to complete this topic IPV Vaccines Aged Out No longer eligi ble based on patient's age to complete this topic Meningococcal B Vaccine Aged Out No l onger eligible based on patient's age to complete this topic Meningococcal Vaccine Aged Out No geneva zaheer eligible based on patient's age to complete this topic RSV under 20 months Aged Out No longe r eligible based on patient's age to complete this topic Rotavirus Vaccines Aged Out No longer eligible based on patient's age to complete this topic Procedures Procedure Name Priority Date/Time Associated Diagnosis Comments COMPREHENSIVE ORAL EVALUATION - NEW OR ESTABLISHED PATIENT Routine 12/02/2024 9:00 AM EDT INTRAORAL - COMPLETE SERIES OF RADIOGRAPHIC IMAGES Routine 12/02/2024 9:00 AM EDT ORAL HYGIENE INSTRUCTIONS Routine 2024 9:00 AM EDT PROPHYLAXIS - ADULT Routine 12/02/2024 9 :00 AM EDT 5 DO AMALGAM FILLING Routine 12/02/2024 12:00 AM EDT 4 MOD AMALGAM FILLING Routine 12/02/2024 12:00 AM EDT 3 MOD AMALGAM FILLING Routine 12/02/2024 12:00 AM EDT 2 O AMALGAM FILLING Routine 12/02/2024 1 2:00 AM EDT 14 MOD AMALGAM FILLING Routine 12:00 AM EDT 20 O AMALGAM FILLING Routine 12/02/2024 12:00 AM EDT 19 CROWN - PORCELAIN/CERAMIC Routine 12/02/2024 12:00 AM EDT 31 EXTRACTION Routine 12/02/2024 12:00 AM EDT 18 EXTRACTION Routine 12/02/2024 12:00 AM EDT 18 EXTRACTION Routine 12/02/2024 12:00 AM EDT from Last 3 Months Insurance DENTAL - DQ [employer]
--- OUTSIDE RECORDS SUMMARY | 2025-01-06 08:49 | XMS_ITS | Patient Health Record ---
Author Organization [facility] Address [address] [place] [id number] Care Team Providers Care Engineering Designer Name Role Phone Tami(inactive) Sergey PERKINS Primary Care Provider U Nestor Davis Unavailable [phone] Allergies Allergen (clinical drug ingredient) Drug/Non Drug Allergy documented on EMR Reaction Allergy Type Onset Date Status dust and pollen (uncoded) Unknown Allergy Active Reason For Referral No Information Medications Medication SIG (Take, Route, Fr equency, Duration) Notes Start Date End Date Status Vitamin B12 Active Fish Oil Active Multivitamin & Mineral Active Multivitamin Active Fluoxetine Active Lovastatin Active Social History Tobacco Use: Social History Observation Description Date Details (start date - stop date) Never Smoker NA - NA Tobacco Use/Smoking Question Answer Notes Patient is a nonsmoker Alcohol Screen Question Answer Notes Did you have a drink containing alcohol in the p ast year? 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 [place] [phone] [id number] EVERT GRANDE Self - patient is the insured Medical (General) History Medical History History ICD Code Denies OR,DM,CVA,Lung disease,renal dise ase Colonoscopy in 2006--hyperpl astic polyps, ascending colon lipoma, diverticulosis, and internal hemorrhoids Depression Hyperlipidemia
== END 2025-01-06 09:18 | disposition home or self-care (01) ==
LOC: HO.HMCH 08:35
PROVIDERS: PCP Physician Assistant; Visit Provider Physician Assistant
DX: Z00.00 Encounter for general adult medical examination without abnormal findings (principal); E78.00 Pure hypercholesterolemia, unspecified; F51.04 Psychophysiologic insomnia; I10 Essential (primary) hypertension; D64.89 Other specified anemias; F41.1 Generalized anxiety disorder

== ENCOUNTER → 2025-01-06 08:35 | Outpatient (BNVA) | payer MEDICARE, SELFPAY | PROVIDERS: PCP Physician Assistant; Visit Provider Physician Assistant | DX: Z00.00 Encounter for general adult medical examination without abnormal findings (principal); F41.1 Generalized anxiety disorder; I10 Essential (primary) hypertension; N40.0 Benign prostatic hyperplasia without lower urinary tract symptoms; E78.00 Pure hypercholesterolemia, unspecified; F51.04 Psychophysiologic insomnia; D64.89 Other specified anemias; Z96.641 Presence of right artificial hip joint | CPT/HCPCS: 96127; 99397 ==

== ENCOUNTER 2025-06-30 11:56 | Outpatient (REF) | payer MEDICARE, SELFPAY ==
[2025-06-30 12:10] LABS: MANUAL DIFF FLAG NO
[2025-06-30 12:46] LABS: Hematocrit 37.8 % (42.0-52.0); Hemoglobin 12.3 g/dl (14.0-18.0); Imm Gran Abs Auto 0.01 X10*3/uL (0.00-0.03); Imm Gran Pct Auto 0.2 % (0.0-0.4); Lymphocytes Absolute Auto 1.4 X10*3/uL (1.2-4.9); Mean Corpuscular HGB Conc 32.5 g/dl (31.0-36.0); Mean Corpuscular Hemoglobin 30.9 pg (27.0-33.0); Mean Corpuscular Volume 95.0 fL (80.0-98.0); NRBC Abs Auto 0.000 X10*3/uL (0.0-0.012); NRBC Pct Auto 0.0 /100WBC (0.0-0.2); Platelet Count 247 X10*3/uL (160-400); Red Blood Count 3.98 X10*6/uL (4.60-5.80); White Blood Count 5.2 X10*3/uL (4.8-10.8)
[2025-06-30 13:38] LABS: Alanine Aminotransferase 15 U/L (0-40); Albumin Level 4.7 g/dL (3.5-5.0); Alkaline Phosphatase 48 U/L (39-117); Anion Gap 11 (12-20); Aspartate Amino Transferase 21 U/L (5-37); Blood Urea Nitrogen 18 mg/dL (9-16); Calcium 9.6 mg/dL (8.4-10.2); Carbon Dioxide 28 mmol/L (22-29); Chloride 107 mmol/L (96-108); Cholesterol 193 mg/dL (<200); Estimated Glomerular Filt Rate > 60; HDL Cholesterol 52 mg/dL (>40); Iron 89 mcg/dL (45-160); Percent Iron Saturation 34 % (15-50); Potassium 4.3 mmol/L (3.3-5.1); Sodium 142 mmol/L (135-145); Total Iron Binding Capacity 261 mcg/dL (228-428); Total Protein 7.1 g/dL (6.5-8.0); Triglycerides 83 mg/dL (<150); Unsaturated Iron Binding 172 ug/dL
--- OUTSIDE RECORDS SUMMARY | 2025-06-30 13:43 | XMS_ITS | Clinical Summary ---
Author Organization [id number] Address [address] [place] [address] Care Team Providers Care Clinical Education Academic Coordinator Name Role Phone Unavailable Primary Care Provider [...] Encounters Date Type Department Care Team Description 06/09/2025 10:15 AM EST Office Visit [facility] [address] [place] [address] Lela Bui Dental calculus (Primary Dx); Dental plaque 06/02/2025 Travel from Last 3 Months Social History Tobacco [...] Sign Reading Time Taken Comments Blood Pressure 142/84 06/09/2025 10:24 AM EST Pulse - - Temperature - - Respiratory Rate - - Oxygen Saturation - - Inhaled Oxygen Concentration - - Weight - - Height - - Body Mass Index - - Plan of Treatment Upcoming Encounters Date Type Department Care Team ([facility] st Contact Info) Description 07/21/2025 10:30 AM EST Office Visit [facility] [address] [place] [address] Boaz Castanon [address] [place] [address] 12/09/2025 9:30 AM EDT Office Visit [facility] [address] [place] [address] Llea Bui Health Maintenance Due Date Last Done Comments CT Colonography 1955 Colonoscopy 1955 Colorectal Cancer Screening 1955 Depression Screening 1955 FIT DNA/Cologuard 1955 FIT 1955 FOBT 1955 Lipid Panel 1955 SDOH Screening 1955 Sigmoidoscopy 1955 Alcohol/Substance Use Screening 1967 Hepatitis C Screening 1973 COVID-19 Vaccine ( season) 2025 05/15/2021, 10/13/2020, 09/15/2020 Dental X-Ray: Bitewings 12/03/2025 12/02/2024 Dental Oral Exam 12/09/2025 06/09/2025, 12/02/2024 Dental Prophylaxis 12/09/2025 06/09/2025, 12/02/2024 Tobacco Screening 06/09/2026 06/09/2025 Dental X-Ray: Full Mouth 12/04/2027 12/02/2024 RSV Patients and Patients Aged 60 years or older (1 - 1-dose 75+ series) 2030 DTaP/Tdap/Td Vaccines (3 - Td or Tdap) 07/18/2033 07/18/2023, 06/13/2016 Zoster Vaccines Completed 05/29/2020, 03/26/2020 Pneumococcal Vaccine: 50+ Years Completed 06/15/2021, 06/13/2020 Influenza Vaccine Completed 03/16/2025, , 05/29/2023, Additional history exists HIB Vaccines Aged Out No longer eligi [...] Procedure Name Priority Date/Time Associated Diagnosis Comments ORAL HYGIENE INSTRUCTIONS Routine 2024 10:15 AM EST Full PROPHYLAXIS - ADULT Routine 025 10:15 AM EST PERIODIC ORAL EVALUATION - ESTABLISHED PATIENT Routine 06/09/2025 10:15 AM EST INTRAORAL - COMPLETE SERIES OF RADIOGRAPHIC IMAGES Routine 12/02/2024 9:00 AM EDT from Last 3 Months or Most Recently Relevant to Health Maintenance Insurance DENTAL - [place] [employer]
--- OUTSIDE RECORDS SUMMARY | 2025-06-30 13:44 | XMS_ITS | Patient Health Record ---
Author Organization [facility] Address [address] [place] [address] Care Team Providers Care Helper Shear Operator Name Role Phone Tami(inactive) Sergey PERKINS Primary Care Provider U Nestor Davis Unavailable [phone] Allergies Allergen (clinical drug ingredient) Drug/Non Drug [...] stop date) Never Smoker NA - NA Social History Drugs/Alcohol: Social Info Question Answer Notes Alcohol Screen Did you have a drink containing alcohol in the past year? 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 Problems Problem Type SNOMED Code ICD Code Onset Dates Problem Status W/U Status Risk Notes Problem Screening for malignant neoplasm of colon (986389741) Encounter for screening for malignant neoplasm of colon (Z12.11) Active confirmed Problem Preprocedural examination (579782253435907) Preprocedural examination (Z01.818) Active confirmed Plan Of Treatment Future Test Test Name Order Date COLONOSCOPY 11/13/2017 Insurance Providers Payer Name Payer Address Payer Phone Subscriber Number Group Number Insured Name Patient Relationship to Insured Coverage Start Date Coverage End Date [employer] [address] [place] [phone] [id number] EVERT GRANDE Self - patient is the insured Medical (General) History Medical History History ICD Code Denies DC,DM,CVA,Lung disease,renal dise ase Colonoscopy in 2006--hyperpl astic polyps, ascending colon lipoma, diverticulosis, and internal hemorrhoids Depression Hyperlipidemia
[2025-06-30 13:54] LABS: Microalbum/Creatinine Ratio Ur 4.3 ug/mg cr (<30)
== END 2025-06-30 11:57 | disposition home or self-care (01) ==
LOC: HO.LAB 11:56
PROVIDERS: PCP Physician Assistant; Visit Provider Physician Assistant
DX: I10 Essential (primary) hypertension (principal); D64.89 Other specified anemias; D50.9 Iron deficiency anemia, unspecified; E78.00 Pure hypercholesterolemia, unspecified; Z12.5 Encounter for screening for malignant neoplasm of prostate
CPT/HCPCS: 36415; 80053; 80061; 82043; 82570; 83540; 84153; 85025